=== PATIENT | male | born 1950 | race Caucasian/White ===

== ENCOUNTER → 2020-01-02 11:17 | Outpatient (BNVA) | payer MEDICARE, SELFPAY | PROVIDERS: Family Provider Family Medicine; PCP Family Medicine; Visit Provider Urology | DX: N41.9 Inflammatory disease of prostate, unspecified (principal); N39.9 Disorder of urinary system, unspecified; R97.20 Elevated prostate specific antigen [PSA]; Z80.42 Family history of malignant neoplasm of prostate | CPT/HCPCS: 81001; 84153 ==

== ENCOUNTER → 2020-01-23 12:12 | Outpatient (BNVA) | payer MEDICARE, SELFPAY | PROVIDERS: Family Provider Family Medicine; PCP Family Medicine; Visit Provider Urology | DX: N41.9 Inflammatory disease of prostate, unspecified (principal); R97.20 Elevated prostate specific antigen [PSA] | CPT/HCPCS: 88305 ==

== ENCOUNTER 2020-02-28 08:21 | Outpatient (RCR) | payer MEDICARE, SELFPAY ==
--- NOTE | 2020-02-14 10:05 | N.ONRAD NP_ITS ---
Radiation Oncology New Patient Visit Patient: Xavi Squires MR#: [id number] : 1950> Age: 69> Sex: Male> Dictated by: Dr. Michael Quick Date of Service: 02/13/2020 Referring Physician(s) : Geoff Torres MD Diagnosis: C85.81 -prostate, adenocarcinoma, stage T1c NX MX, PSA 10.7 (on finasteride), Mckenna 3+4 = 7 Radiotherapy to date: Summary > bilateral parotid gland radiation, 2600cGy, by patient history the radiation was interrupted before the planned dose was achieved due to side effects, review of records pending Chief Complaint / History of Present Illness: Mr. Torres is a 69-year-old man with a long history of benign prostatic hypertrophy with obstructive symptoms, chronic prostatitis, and elevated PSA. His BPH symptoms did not respond well to Flomax but did improve on finasteride. His chronic prostatitis has been treated periodically with Cipro and quercetin. He has actually used Cipro on a self treatment program. Patient has had history of transient elevations of the PSA. He has had a recent rise to 10.7 while on finasteride. He has had no marked change in his urinary tract symptoms. On 01/31/2022 2120 biopsies were performed. He had Lucia 3+4 adenocarcinoma on 5 of 12 biopsies with 10 to 50% of the cores being involved by cancer. He has had a basically normal prostate exam. Mr. Squires has discussed surgical options including robotic surgery. He is referred for evaluation and recommendations with regard to the use of radiation for the treatment of his prostate cancer. In terms of bladder symptoms he scores 17 out of 35 on the AUA symptom guide. He has a sensation of not completely emptying his bladder more than half the time. Also he frequently urinates less than 2 hours after finishing urinating. His most severe symptom is difficulty in postponing urination once he develops urgency. He has nocturia x3. He denies having a weak stream, pushing or straining to empty. . Mr. Squires has no history of new or troublesome bone pain. His overall performance status has been unchanged recently. Current Medications: Claritin, diazePAM, finasteride, leflunomide, metoprolol Tartrate, naproxen, omeprazole, potassium Chloride ER, prednisoLONE. Allergies: Statins, Penicillins, Cephalexin and Sulfa Antibiotics. Medical History: - Benign prostatic hypertorphy, - gastroesophageal reflux disease, - MALT lymphoma of the parotid gland. The patient describes receiving radiation bilaterally to the parotids. I think Waldeyer's ring was included because he states that he had to stop treatment altogether because of severe pharyngitis. He has had no recurrence of the MALT lymphoma. He mentions that he may have a lump under the right axilla that he notices when bathing. Rheumatoid art. . No history of collagen vascular disease. No previous radiation therapy. Surgical History: the parotid gland Appendectomy in 1977, arthroscopic knee surgery in 1989, arthroscopic shoulder surgery in 1999, bilateral cataract excisions, colonoscopy, excision of right parotid gland in 2001, laser eye surgery, rectal fistula repair in 1994 and thoracotomy/resection of right upper lobe pulmonary nodule in 2001. Family History: His father was treated for both the esophageal cancer and prostate cancer. His mother had dementia. Social History: Last screened on 02/13/2020 - Never smoked. Last screened on 02/13/2020 - Never drank. Current Complaints / Review of Systems: ENT: He has a history of parotid lymphoma as noted above. He has residual dry mouth that is moderate in degree. He has full dentures and therefore no dental issues related to the radiation. He has no significant loss of taste. No jaw pain. P UL M0 MARCUS Y: No troublesome cough, sputum production, hemoptysis, shortness of breath, or pleuritic pleuritic chest pain. GI: No dysphagia, dyspepsia, altered bowel habits, or abdominal pain. MS no unusual bone or joint pain or stiffness. Vital Signs: PHYSICAL EXAM: Alert, oriented ,no distress. Postsurgical changes of the right parotid. No significant radiation changes of the face or oral cavity/pharynx. No lesions seen. No cervical, axillary, supraclavicular, or inguinal lymphadenopathy. No abnormality in the right axilla. Lungs clear to A and P. No rales, rhomchi ,or wheezes. Heart rhythm regular. No murmur, gallop, or rub. Abdomen obese. No tenderness, organomegaly, or mass. Rectal No rectal mass or tenderness. Prostate is smooth, slightly firm diffusely, and nontender. No nodules. No bone tenderness. Normal gait. Performance Status: KPS 7/10 Pathology: Prostate, Adenocarcinoma, Mckenna 3+4 = 7. Lab: PSA = 10.7 Imaging:CT and Bone Scan ordered. Impression: Assessment: Mr. Squires has a nonpalpable, Mckenna 3+4 = 7 carcinoma the prostate with a PSA of 10.7 on finasteride. With the suppression of the PSA that can occur with finasteride finasteride, the true PSA value may be as high as 20. For that reason I feel it would be appropriate to go ahead with staging studies. I will order a CT of the abdomen and pelvis as well as a bone scan. If Mr. Squires has no evidence of metastatic disease, he will be a candidate for radical treatment of the prostate. He has discussed surgery. In terms of radiation, I reviewed a typical course of treatment over 8-1/2 to 9 weeks. I discussed side effects and possible complications. The patient's urinary tract issues are of some concern. I discussed his history of prostatitis as well as benign prostatic hypertrophy. I told him that radiation may worsen those symptoms significantly. We discussed the fact that Flomax was tried for his obstructive symptoms in the past and did not work well. I told him that is our primary drug for obstructive symptoms during radiation. In addition I discussed risk related to treatment. I discussed the extremely high risk of impotence. That is already a problem and is not a concern to him. Also discussed the small risk of severe bowel or bladder injury that could result in the need for surgery or even a permanent ostomy. He was to some to some degree aware of these risks. He has a history of a rectal fissure, but that was treated surgically over 20 years ago and has not been a problem since. Plan: We will obtain the bone scan and CT as noted above. Mr. Squires and his will discuss the various treatment options while we are waiting on the staging studies. No final decision has been made about treatment at this time. Signed by: 02/14/2020 10:03:31 AM <<Signature on File>> Time spent with patient: CPT Code: CPT Code:
--- NOTE | 2020-02-21 08:20 | CT_ITS ---
WS: [id number] CT ABDOMEN AND PELVIS WITH CONTRAST HISTORY: PROSTATE CANCER TECHNIQUE: Imaging performed of the abdomen and pelvis with IV contrast. Single phase imaging of the abdomen. Coronal and sagittal reformats are submitted. All CT scans at [facility] use at least one of these dose optimization techniques: automated exposure control; mA and/or kV adjustment per patient size (includes targeted exams where dose is matched to clinical indication); or iterativ e reconstruction. IV CONTRAST: Omnipaque 300; 95 mL IV. Oral contrast: Yes. DLP: 1197.49 mGycm COMPARISON: 12/25/2004 Lower thorax: Several nodules are noted at the lung bases. Some of these are pleural based and some a re parenchymal. Some contain calcifications. Overall stable since 11/19/2016. Heart is normal size. N o hiatal hernia. Liver/biliary system: Normal size with no intrahepatic dilatation. Gallbladder: Normal. No gallstones or wall thickening. No pericholecystic fluid. Pancreas: Normal. Spleen: Normal. Adrenal glands: Normal. Right kidney: Mild perinephric stranding with no obstruction. 11 mm hypoechoic lesion in the cortex o f the upper pole is new since 2004. Indeterminate for early neoplasm. Left kidney: Normal. Aorta: Normal. Lymphadenopathy: None. Free fluid: None. GI tract: No GI tract obstruction. There are several diverticula in the sigmoid colon without acute i nflammation. Mild asymmetric wall thickening of the distal sigmoid. The appendix is not definitely id entified. Abdominal wall: Unremarkable abdominal wall. No hernia. Pelvis: Inguinal canals are patent bilaterally containing fat. Urinary bladder is negative. No adenop athy or fluid. Prostate gland is small. Bones: Lumbar spondylitic changes. No osteoblastic or osteolytic bone disease. Bilateral femoral head osteonecrosis. CT/CT abdomen pelvis w con* [id number] IMPRESSION: 1. Mild sigmoid diverticulosis without acute diverticulitis. 2. Mild asymmetric wall thickening of the distal sigmoid with adjacent diverti cula. This asymmetric thickening may be due to chronic episodes of diverticulit is. Early neoplasm is not excluded. Consider follow-up colonoscopy. 3. Indeterminate hypodense cortical lesion upper pole RIGHT kidney, 11 mm. Ind eterminate for early neoplasm versus complex cyst. Recommend follow-up renal ma CT protocol in 6 months. Due to patient size doubtful ultrasound would provi de adequate characterization. 4. Stable partially calcified nodules at the lung bases. 5. Bilateral femoral head osteonecrosis.
[2020-02-21] MEDS: iohexol 300 mg/mL 50 mL Btl PO (08:45)
[2020-02-21 10:07] LABS: Blood Urea Nitrogen 14 mg/dL (8-23); Glomerular Filtration Rate 83.9 mL/min (90-130)
[2020-02-21] MEDS: iohexol 300 mg/mL 100 mL Btl IV (10:13)
--- NOTE | 2020-02-27 07:48 | NM_ITS ---
WS: [id number] NUCLEAR MEDICINE WHOLE BODY BONE SCAN HISTORY: PROSTATE CANCER COMPARISON: None available. TECHNIQUE: The patient was injected with 24.9 mCi of Technetium 99m HDP and serial whole-body scintig ade have been performed with anterior and posterior images. Large [id number] imaging over the sku ll and knees. There are a few focal areas of moderate increased uptake in areas most likely related to arthritis. B ilateral acromion, LEFT sternoclavicular, RIGHT T7 facet, L5 and bilateral knees and carpometacarpal joint spaces. There are no focal areas suspicious for metastatic disease. Bilateral uptake at the kne es from arthritis. Partial RIGHT knee replacement. Soft tissue uptake is normal. Kidneys are identified. NM/NM bone scan whole body* [id number] IMPRESSION: 1. No evidence for prostate metastatic disease. 2. Multifocal areas of osteoarthritis as above.
--- NOTE | 2020-02-28 12:42 | ONC CON_ITS ---
Dr. Ross New Patient Note Patient: Xavi Squires Unit #: [id number]: 1950 Dicatated By: Arthur Ross M.D.Date of Visit: Feb 28, 2020 Onc MED New Patient/Consult Referring Physician: Twila Haddadel Mary Chief Complaint: Prostate cancer. History of Present Illness: This is a 69 year-old man with Killbuck score 3+4 adenocarcinoma of the prostate, by clinical evaluation stage IIB (T2c, N0, M0), baseline PSA10.70 ng/mL. 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 His treatment included excision of the right parotid gland followed by radiation to the parotid region bilaterally, completed in September 2002 to a total dose of 2600 cGy. As of his follow-up visit in June 2015 there had been no evidence of recurrence. He has additional history of rheumatoid arthritis, which has been managed adequately with leflunomide. He has been followed by Dr. Torres for benign prostatic hypertrophy and prostatitis. As of April 2019 there was a significant increase in his PSA level, to 6.10 ng/mL compared to 0.52 ng/mL in January 2017. By September 2019 and it was up to 8.90 ng/mL, and as of 01/02/2020 it had further increased to 10.70 ng/mL. He then underwent TRUSP/biopsy on 01/20/2020. Pathology showed Lucia 3+4 prostatic adenocarcinoma involving both lobes, including the right lateral base, right lateral apex, left lateral apex, left lateral mid and left lateral base. Staging CT of the abdomen/pelvis on 02/21/2020 showed evidence of mild sigmoid diverticulosis without acute diverticulitis. There was mild asymmetric wall thickening of the distal sigmoid with adjacent diverticula, possibly reflecting chronic episodes of diverticulitis, but or early neoplasm was not excluded. A hypodense cortical lesion in the upper pole of the right kidney measured 11 mm, indeterminate for early neoplasm versus complex cyst. Also noted was evidence of bilateral femoral head osteonecrosis. Bone scan on 02/27/2020 showed multifocal areas of osteoarthritis but no evidence for metastatic prostate cancer. He was seen by Dr. Royce Quick for radiation oncology consultation, and with the findings of bilateral femoral head osteonecrosis on the CT scan, he was deemed to be unsuitable for definitive radiation. He is seen now in regard to further management of the prostate cancer. He complains is been feeling tired for quite a while. 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 He is still doing some light work at home. His ECOG score is 1. He has good appetite. He has not had fever. He has had some sweating at night off and on. He has had some soreness on the inside of his mouth. He does not complain of shortness of breath, cough, or chest pain. He has had a little nausea since a bone scan yesterday. He has acid reflux, that has been well managed with omeprazole. He complains that he has diarrhea all the time. He has had colonoscopy previously with Dr. Rolle, but he does not recall how long ago that may have been done. He has not been aware of any blood in the stool. He has urinary frequency and nocturia. He has pain in his knees and back. His rheumatoid arthritis mainly affects his hands. It is pretty well controlled with the leflunomide. He does have prednisone that he takes occasionally for flareups. He has a lot of headaches, mainly in the back of his head on the right side. This has been going on for quite a while. He has some dysequilibrium associated with the recent visual changes. He has no focal neurologic symptoms. Past Medical History: His medical history includes benign prostatic hypertorphy/chronic prostatitis, gastroesophageal reflux disease, MALT lymphoma, and rheumatoid arthritis. Past Surgical History: His surgical/procedural history includes bilateral cataract excisions, colonoscopy, laser eye surgery, excision of right parotid gland in 2001, thoracotomy/resection of right upper lobe pulmonary nodule in 2001, arthroscopic shoulder surgery in 1999, rectal fistula repair in 1994, arthroscopic knee surgery in 1989, and appendectomy in 1977. Medications: Claritin 1 (10 mg) Tablet Oral daily, Finasteride 1 (20 mg) Tablet Oral daily, Leflunomide 1 (20 mg) Tablet Oral daily, Metoprolol Tartrate 1 (50 mg) Tablet Oral daily, Naproxen 1 (500 mg) Tablet Oral b.i.d. PRN, Omeprazole 1 (20 mg) Capsule Delayed Release Oral daily, Potassium Chloride ER 1 (20 meq) Tablet, controlled release Oral daily, prednisoLONE 1 Tablet (of 5 mg) Oral daily Allergies: Cephalexin, Penicillins, Statins, and Sulfa Antibiotics. Social History: Mr. 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 He does not smoke or drink alcohol. Family History: His father was treated for both the esophageal cancer and prostate cancer. His mother had dementia. Review Of Symptoms: Constitutional - His energy level has been low for quite some time. He is able to do light housework. His appetite is good and weight is stable. No fever or chills. He has some night sweating off and on. ECOG score is 1, Eyes - He right eye has detached retina, ENMT - He has some sinus congestion/drainage. No mouth sores. No sore throat or difficulty swallowing, Hematologic/Lymphatic - He has easy bruising, Respiratory - No shortness of breath. No cough. No pleuritic pain or hemoptysis, Cardiovascular - No angina pain. No palpitations, Gastrointestinal - He had some nausea this morning, since resolved. No vomiting. He takes Prilosec for heartburn. He has chronic diarrhea. No constipation. No blood in the stool or black stools, Genitourinary (M) - No dysuria or hematuria. He has urinary frequency during the day and at night. No urgency or incontinence, Musculoskeletal - He has arthritis pain in his knees and back. He also had rheumatoid arthritis that mainly affects his hands, Integumentary - No skin complications, Neurologic - He has headaches nearly everyday. He reports its mainly in the morning and its to his right posterior head. He has some dizziness that he believes is related to his vision. No numbness/paresthesias or other focal neurologic symptoms, Psychiatric - No anxiety or depression. No insomnia. Vital Signs: Performed on Feb 28, 2020 10:18: 3, 39.84 (HIGH), 2.24 sq.m, 67.00 in, 97 %, 78 /min, 24 /min, 158/85 mm(hg) (HIGH), 97.9 F (LOW), and 254.4 lbs (LOW). Physical Examination: Constitutional - He looks pretty good generally, Eyes - Sclerae nonicteric. Conjunctivae clear, ENMT - No lesions noted in the oral cavity, Hematologic/Lymphatic - No cervical, clavicular, or axillary adenopathy, Respiratory - Lungs are clear with good air movement bilaterally, Cardiovascular - Heart rhythm is regular. There is no murmur, gallop, or rub noted, Abdomen - Moderately distended but soft. Liver and spleen are not enlarged. There is no abdominal mass or ascites noted and there is no inguinal adenopathy, Extremities - Mild edema. Dorsalis pedis pulses are palpable bilaterally, Integumentary - No suspicious skin lesions noted, Neurologic - No focal neurologic deficits noted. Impression: 1. Patient with with Killbuck score 3+4 adenocarcinoma of the prostate, by clinical evaluation stage IIB (T2c, N0, M0), baseline PSA10.70 ng/mL. The diagnosis was confirmed by TRUS P/biopsy on 01/20/2020. 2. His staging CT abdomen/pelvis showed evidence of bilateral femoral head osteonecrosis. As such, he was deemed to be unsuitable for definitive radiation. 3. There was also CT evidence of an 11 mm cortical lesion involving the upper pole of the right kidney, felt to be indeterminate for neoplasm versus complex cyst. 4. 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 His other medical illnesses include: 5. Rheumatoid arthritis, adequately managed with leflunomide. 6. Degenerative arthritis. 7. GERD. 8. He has been undergoing treatment for detached retina of the right eye. Plan: The findings on the imaging studies and the pathology results were reviewed with the patient and his . We discussed the clinical implications. He has a Killbuck 3+4 prostate cancer which appears to be localized. Based on his general health and the extent of involvement, he would appear to be an appropriate candidate for definitive treatment, but he was deemed by the radiation oncologist to be unsuitable for radiation due to the finding of bilateral femoral head osteonecrosis on his staging CT scan. He would still potentially be an appropriate surgical candidate, but I would first want to resolve with Dr. Rolle the issue of the CT findings involving the sigmoid colon, as it is likely that he would need a repeat sigmoidoscopy or colonoscopy. The other concern is that nonemergent surgeries are not being scheduled due to the coronavirus restrictions, and it is unclear at what point he would even be considered for a prostatectomy procedure. That is an issue which I will discuss with Dr. Torres, but it may very well be best to go ahead and initiate androgen deprivation therapy as a temporizing measure. In the meantime, I also will want to confer with one of the radiation oncologists at [facility] to make sure that proton beam radiation may not still be an option for him. Signed By: Arthur Ross M.D. <<Signature on File>>
== END 2020-02-28 23:59 | disposition home or self-care (01) ==
LOC: ONCMED 08:21
PROVIDERS: Specialist; Family Provider Family Medicine; PCP Family Medicine; Referring Provider Urology; Visit Provider Internal Medicine Medical Oncology
DX: C61 Malignant neoplasm of prostate (principal); N41.1 Chronic prostatitis; N40.1 Benign prostatic hyperplasia with lower urinary tract symptoms; R33.9 Retention of urine, unspecified; R35.1 Nocturia; Z79.899 Other long term (current) drug therapy; K21.9 Gastro-esophageal reflux disease without esophagitis; M06.9 Rheumatoid arthritis, unspecified; H33.21 Serous retinal detachment, right eye; Z85.72 Personal history of non-Hodgkin lymphomas; Z79.52 Long term (current) use of systemic steroids; Z92.3 Personal history of irradiation
CPT/HCPCS: 74177; 78306; 82565; 84520; 99204; 99205; 99215; A9561; Q9967

== ENCOUNTER → 2020-03-15 13:06 | Outpatient (BNVA) | payer MEDICARE, SELFPAY | PROVIDERS: Family Provider Family Medicine; PCP Family Medicine; Visit Provider Internal Medicine Rheumatology | DX: M06.09 Rheumatoid arthritis without rheumatoid factor, multiple sites (principal); Z79.899 Other long term (current) drug therapy; Z11.59 Encounter for screening for other viral diseases; Z72.89 Other problems related to lifestyle | CPT/HCPCS: 36415; 80076; 82565; 85025; 85651; 86140; 86704 ==

== ENCOUNTER 2020-04-09 08:44 | Outpatient (CLI) | payer MEDICARE, SELFPAY ==
[2020-04-09 09:24] LABS: Basophils % 0.9 %; Eosinophils # 0.1 10^3/uL (0.0-0.8); Eosinophils % 2.2 %; Hematocrit 39.9 % (42.0-52.0); Hemoglobin 12.4 g/dL (11.7-16.6); Lymphocytes # 0.9 10^3/uL (0.8-4.8); Lymphocytes % 18.9 %; Mean Corpuscular HGB Conc 31.1 g/dL (30.0-36.0); Mean Corpuscular Volume 86.9 fL (80-94); Mean Platelet Volume 9.6 fL (7.4-10.4); Monocytes # 0.5 10^3/uL (0.2-0.9); Neutrophils % 66.6 %; Nucleated Red Blood Cells % 0 %; Platelet Count 178 10^3/cmm (130-400); Red Blood Count 4.59 10^6/uL (4.1-5.3); Red Cell Distribution Width 14.6 % (12.1-15.1); White Blood Count 4.5 10^3/uL (4.0-10.0)
[2020-04-09 09:49] LABS: Prostate Specific Antigen 4.67 ng/mL (0-4)
[2020-04-09 10:00] LABS: Alanine Aminotransferase 23 U/L (0-41); Albumin Level 4.1 g/dL (3.5-5.2); Alkaline Phosphatase 76 IU/L (40-130); Anion Gap 17.3 (5-19); Aspartate Amino Transferase 25 U/L (0-40); Blood Urea Nitrogen 16 mg/dL (8-23); Carbon Dioxide 24 mmol/L (22-29); Chloride 104 mmol/L (98-107); Globulin 2.8 g/dL (1.3-4.6); Glomerular Filtration Rate 66.6 mL/min (90-130); Glucose 138 mg/dL (65-115); Osmolality Calculated 291 mOsm/kg (285-295); Potassium 4.3 mmol/L (3.5-5.1); Sodium 141 mmol/L (136-145); Total Bilirubin 0.3 mg/dL (0.15-1.2); Total Protein 6.9 g/dL (6.6-8.7)
[2020-04-09] MEDS: goserelin acetate 10.8 mg Implant IM (16:01)
--- NOTE | 2020-04-10 07:03 | ONC FU_ITS ---
Dr. Ross Patient Follow-Up Note Patient: Xavi Squires Unit #: [id number]: 1950 Dicatated By: Arthur Ross M.D.Date of Visit:April 09, 2020 Onc Med Follow-up/Prog Note Chief Complaint: Prostate cancer. 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 His treatment included excision of the right parotid gland followed by radiation to the parotid region bilaterally, completed in September 2002 to a total dose of 2600 cGy. As of his follow-up visit in June 2015 there had been no evidence of recurrence. He has additional history of rheumatoid arthritis, which has been managed adequately with leflunomide. He has been followed by Dr. Torres for benign prostatic hypertrophy and prostatitis. As of April 2019 there was a significant increase in his PSA level, to 6.10 ng/mL compared to 0.52 ng/mL in January 2017. By September 2019 and it was up to 8.90 ng/mL, and as of 01/02/2020 it had further increased to 10.70 ng/mL. He then underwent TRUSP/biopsy on 01/20/2020. Pathology showed [place] 3+4 prostatic adenocarcinoma involving both lobes, including the right lateral base, right lateral apex, left lateral apex, left lateral mid and left lateral base. Staging CT of the abdomen/pelvis on 02/21/2020 showed evidence of mild sigmoid diverticulosis without acute diverticulitis. There was mild asymmetric wall thickening of the distal sigmoid with adjacent diverticula, possibly reflecting chronic episodes of diverticulitis, but or early neoplasm was not excluded. A hypodense cortical lesion in the upper pole of the right kidney measured 11 mm, indeterminate for early neoplasm versus complex cyst. Also noted was evidence of bilateral femoral head osteonecrosis. Bone scan on 02/27/2020 showed multifocal areas of osteoarthritis but no evidence for metastatic prostate cancer. He was seen by Dr. Royce Quick for radiation oncology consultation, and with the findings of bilateral femoral head osteonecrosis on the CT scan, he was deemed to be unsuitable for definitive radiation. I had seen him for further management of the prostate cancer on 02/28/2020. We discussed the possibility of getting a further radiation oncology evaluation at [facility] to see whether or not he would be eligible for proton beam radiation. However, he ultimately decided against it, and he was then recommended to begin neoadjuvant androgen deprivation therapy in preparation for possible surgery. A little over 2 weeks ago he had started bicalutamide 50 mg daily in anticipation of also starting Zoladex, but that has been delayed pending verification of insurance coverage. Thus far he has tolerated the bicalutamide with acceptable toxicity. He has had a few hot flashes with it. He also has some diarrhea, but that is chronic. He has noted improvement in the pain he was having in the bladder/perineal area. Medications: Claritin 1 (10 mg) Tablet Oral daily, Finasteride 1 (20 mg) Tablet Oral daily, Furosemide 1 Tablet (of 20 mg) Oral daily, Leflunomide 1 (20 mg) Tablet Oral daily, Metoprolol Tartrate 1 (50 mg) Tablet Oral b.i.d., Naproxen 1 (500 mg) Tablet Oral daily PRN, Omeprazole 1 (20 mg) Capsule Delayed Release Oral daily, Potassium Chloride ER 1 (20 meq) Tablet, controlled release Oral daily, prednisoLONE 1 Tablet (of 5 mg) Oral daily PRN Allergies: Cephalexin, Penicillins, Statins, and Sulfa Antibiotics. Review of Systems: Constitutional - His energy level is low. He is able to do light work. His appetite is good and weight is stable. No fever or chills. He has had some night sweating off and on. He has been having occasional hot flashes since he started bicalutamide. ECOG score is 1, Eyes - His right eye vision is not getting better and apparently it is not going to improve. He started having some drainage from his right eye yesterday, ENMT - Recently he has been having pain in his ears. He has some sinus congestion/drainage. No mouth sores. No sore throat or difficulty swallowing, Hematologic/Lymphatic - He has easy bruising, Respiratory - No shortness of breath. No cough. No pleuritic pain or hemoptysis, Cardiovascular - No angina pain. No palpitations, Gastrointestinal - He had some nausea this morning, since resolved. No vomiting. He takes Prilosec for heartburn. He has diarrhea a lot. No constipation. No blood in the stool or black stools, Genitourinary (M) - No dysuria or hematuria. He has urinary frequency during the day and at night. No urgency or incontinence. The pain in his bladder/perineal area has let up, Musculoskeletal - He has arthritis pain, especially in his knees, Integumentary - No skin complications, Neurologic - He has headaches. No dizzines. No numbness/paresthesias or other focal neurologic symptoms, Psychiatric - No anxiety or depression. No insomnia. Vital Signs: Performed on April 09, 2020 15:29 Height - 67.00 in Weight - 252.4 lbs (LOW) BSA - 2.23 sq.m BMI - 39.53 (HIGH) Temperature - 97.3 F (LOW) Pulse - 75 /min Respiration - 22 /min BP - 147/77 mm(hg) (HIGH) O2 Sat - 97 % Pain - 4 Physical Examination: Constitutional - He looks pretty good generally, Eyes - Sclerae nonicteric. Conjunctivae clear, ENMT - No lesions noted in the oral cavity, Hematologic/Lymphatic - No cervical, clavicular, or axillary adenopathy, Respiratory - Lungs are clear with good air movement bilaterally, Cardiovascular - Heart rhythm is regular. There is no murmur, gallop, or rub noted, Abdomen - Moderately distended but soft. Liver and spleen are not enlarged. There is no abdominal mass or ascites noted and there is no inguinal adenopathy, Extremities - Mild edema. Pedal pulses are palpable bilaterally. There are some small purpuric lesions on the arms, Neurologic - No focal neurologic deficits noted. Lab/Imaging: Test performed on April 09, 2020 08:55 Sodium 141 mmol/L Potassium 4.3 mmol/L Chloride 104 mmol/L CO2 24 mmol/L Anion Gap 17.3 BUN 16 mg/dL Creatinine 1.1 mg/dL Cr Clearance (Est) 104.08 mL/min eGFR 66.6 mL/min Glucose 138 mg/dL Calcium 9.0 mg/dL Protein, Total 6.9 g/dL Albumin 4.1 g/dL Globulin 2.8 g/dL Bilirubin, Total 0.3 mg/dL ALT (SGPT) 23 U/L AST (SGOT) 25 U/L Alkaline Phosphatase 76 IU/L WBC 4.5 10 3/uL RBC 4.59 10 6/uL HGB 12.4 g/dL HCT 39.9 % MCV 86.9 fL MCH 27.0 pg MCHC 31.1 g/dL RDW 14.6 % Platelet Count 178 10 3/cmm MPV 9.6 fL Neutrophils 3.0 10 3/uL Lymphocytes 0.9 10 3/uL Monocytes 0.5 10 3/uL Eosinophils 0.1 10 3/uL Basophils 0.0 10 3/uL Neutrophil % 66.6 % Lymphocyte % 18.9 % Monocyte % 11.0 % Eosinophil % 2.2 % Basophils % 0.9 % PSA 4.67 ng/mL Impression: 1. Patient with with Lucia score 3+4 adenocarcinoma of the prostate, by clinical evaluation stage IIB (T2c, N0, M0), baseline PSA10.70 ng/mL. The diagnosis was confirmed by TRUS P/biopsy on 01/20/2020. 2. His staging CT abdomen/pelvis showed evidence of bilateral femoral head osteonecrosis. As such, he was deemed to be unsuitable for definitive radiation. 3. There was also CT evidence of an 11 mm cortical lesion involving the upper pole of the right kidney, felt to be indeterminate for neoplasm versus complex cyst. 4. 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 His other medical illnesses include: 5. Rheumatoid arthritis, adequately managed with leflunomide. 6. Degenerative arthritis. 7. GERD. 8. He has been undergoing treatment for detached retina of the right eye. He began treatment with bicalutamide 50 mg daily on 03/22/2020. He has tolerated with acceptable toxicity. There has been a significant decline in the PSA level. Plan: He will now begin androgen deprivation therapy with Zoladex 10.8 mg. I did recommend that he continue the bicalutamide for another 2 weeks. I will see him again in 3 months. In the meantime, he will also continue follow-up with Dr. Torres. Signed By: Arthur Ross M.D. <<Signature on File>>
== END 2020-04-09 08:45 | disposition home or self-care (01) ==
LOC: ONCMED 08:44
PROVIDERS: PCP Family Medicine; Referring Provider Urology; Visit Provider Internal Medicine Medical Oncology
DX: C61 Malignant neoplasm of prostate (principal)
CPT/HCPCS: 36415; 80053; 84153; 85025; 96372; 96402; 99214; J9202

== ENCOUNTER → 2020-06-13 13:20 | Outpatient (BNVA) | payer MEDICARE, SELFPAY | PROVIDERS: PCP Family Medicine; Visit Provider Internal Medicine Rheumatology | DX: C61 Malignant neoplasm of prostate (principal); N40.1 Benign prostatic hyperplasia with lower urinary tract symptoms; N13.8 Other obstructive and reflux uropathy; M06.9 Rheumatoid arthritis, unspecified; Z79.899 Other long term (current) drug therapy | CPT/HCPCS: 36415; 80076; 82565; 85025; 85651; 86140 ==

== ENCOUNTER 2020-07-06 09:53 | Outpatient (CLI) | payer MEDICARE, SELFPAY ==
[2020-07-06 10:32] LABS: Basophils % 0.7 %; Eosinophils # 0.2 10^3/uL (0.0-0.8); Eosinophils % 2.6 %; Hematocrit 40.3 % (42.0-52.0); Hemoglobin 12.3 g/dL (11.7-16.6); Lymphocytes # 0.9 10^3/uL (0.8-4.8); Lymphocytes % 14.9 %; Mean Corpuscular HGB Conc 30.5 g/dL (30.0-36.0); Mean Corpuscular Hemoglobin 27.4 pg (28.0-34.0); Mean Corpuscular Volume 89.8 fL (80-94); Mean Platelet Volume 9.5 fL (7.4-10.4); Monocytes # 0.5 10^3/uL (0.2-0.9); Monocytes % 8.1 %; Neutrophils # 4.17 10^3/uL (1.8-7.7); Neutrophils % 73.3 %; Nucleated Red Blood Cells % 0 %; Platelet Count 184 10^3/cmm (130-400); Red Blood Count 4.49 10^6/uL (4.1-5.3); Red Cell Distribution Width 14.6 % (12.1-15.1); White Blood Count 5.7 10^3/uL (4.0-10.0)
[2020-07-06 10:55] LABS: Prostate Specific Antigen 0.113 ng/mL (0-4)
[2020-07-06 11:16] LABS: Alanine Aminotransferase 26 U/L (0-41); Albumin Level 3.9 g/dL (3.5-5.2); Alkaline Phosphatase 86 IU/L (40-130); Blood Urea Nitrogen 16 mg/dL (8-23); Calcium 9.4 mg/dL (8.5-10.5); Carbon Dioxide 24 mmol/L (22-29); Chloride 105 mmol/L (98-107); Globulin 2.8 g/dL (1.3-4.6); Glomerular Filtration Rate 66.4 mL/min (90-130); Glucose 186 mg/dL (65-115); Osmolality Calculated 289 mOsm/kg (285-295); Sodium 139 mmol/L (136-145); Total Bilirubin 0.4 mg/dL (0.15-1.2); Total Protein 6.7 g/dL (6.6-8.7)
[2020-07-06 11:29] LABS: Anion Gap 14.2 (5-19)
[2020-07-06 11:30] LABS: Aspartate Amino Transferase 31 U/L (0-40); Potassium 4.2 mmol/L (3.5-5.1)
[2020-07-06 11:39] LABS: Testosterone Total < 2.5 ng/dL (193-740)
== END 2020-07-06 09:54 | disposition home or self-care (01) ==
PROVIDERS: PCP Family Medicine; Visit Provider Internal Medicine Medical Oncology
DX: C61 Malignant neoplasm of prostate (principal)
CPT/HCPCS: 80053; 84153; 84403; 85025

== ENCOUNTER 2020-07-10 12:22 | Outpatient (CLI) | payer MEDICARE, SELFPAY ==
[2020-07-10] MEDS: lidocaine 1% INJ 20 mL INJECTION (13:05)
[2020-07-10] MEDS: goserelin acetate 10.8 mg Implant IM (13:21)
--- NOTE | 2020-07-11 06:40 | ONC FU_ITS ---
Dr. Ross Patient Follow-Up Note Patient: Xavi Squires Unit #: [id number]: 1950 Dicatated By: Arthur Ross M.D.Date of Visit:Jul 10, 2020 Onc Med Follow-up/Prog Note Chief Complaint: Prostate cancer. History of Present Illness: This is a 70 year-old man with Lucia score 3+4 adenocarcinoma of the prostate, by clinical evaluation stage IIB (T2c, N0, M0), baseline PSA10.70 ng/mL. 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 His treatment included excision of the right parotid gland followed by radiation to the parotid region bilaterally, completed in September 2002 to a total dose of 2600 cGy. As of his follow-up visit in June 2015 there had been no evidence of recurrence. He has additional history of rheumatoid arthritis, which has been managed adequately with leflunomide. He has been followed by Dr. Torres for benign prostatic hypertrophy and prostatitis. As of April 2019 there was a significant increase in his PSA level, to 6.10 ng/mL compared to 0.52 ng/mL in January 2017. By September 2019 and it was up to 8.90 ng/mL, and as of 01/02/2020 it had further increased to 10.70 ng/mL. He then underwent TRUSP/biopsy on 01/20/2020. Pathology showed [place] 3+4 prostatic adenocarcinoma involving both lobes, including the right lateral base, right lateral apex, left lateral apex, left lateral mid and left lateral base. Staging CT of the abdomen/pelvis on 02/21/2020 showed evidence of mild sigmoid diverticulosis without acute diverticulitis. There was mild asymmetric wall thickening of the distal sigmoid with adjacent diverticula, possibly reflecting chronic episodes of diverticulitis, but or early neoplasm was not excluded. A hypodense cortical lesion in the upper pole of the right kidney measured 11 mm, indeterminate for early neoplasm versus complex cyst. Also noted was evidence of bilateral femoral head osteonecrosis. Bone scan on 02/27/2020 showed multifocal areas of osteoarthritis but no evidence for metastatic prostate cancer. He was seen by Dr. Royce Quick for radiation oncology consultation, and with the findings of bilateral femoral head osteonecrosis on the CT scan, he was deemed to be unsuitable for definitive radiation. I had seen him on 02/28/2020 to discuss further management of the prostate cancer on 02/28/2020. Ultimately he opted to proceed with neoadjuvant androgen deprivation therapy in preparation for possible surgery at a later time. His medical illnesses, in addition to the prostate cancer and the MALT lymphoma, include rheumatoid arthritis, degenerative arthritis, and GERD. He also has had treatment for a detached retina of the right eye. He is a non-smoker. INTERIM HISTORY: He began bicalutamide 50 mg daily for 2 weeks followed by his initial injection of Zoladex on 04/09/2020. He is seen for a follow-up visit. 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 He complains that he has been more fatigued since he started the androgen deprivation therapy, but he is still doing light work. He has good appetite. He has not had fever. He does have hot flashes and sweating, which at times are pretty bad. He is having double vision. He is having some allergy related symptoms in his throat, and he has pain in his left ear when he swallows. He has no shortness of breath, cough, or chest pain. He has been having occasional nausea. Bowel function has been okay. Bladder function overall is about the same. He typically has nocturia 2 or 3 times, but sometimes more frequently. He has joint pain, especially in his knees. He it is now scheduled to see the brewery pumper on August 14. He has had pain in the back of his head, particularly when he first gets up in the morning. He occasionally has dizziness. He has no focal neurologic symptoms. Medications: Claritin 1 (10 mg) Tablet Oral daily, Finasteride 1 (20 mg) Tablet Oral daily, Furosemide 1 Tablet (of 20 mg) Oral daily, Leflunomide 1 (20 mg) Tablet Oral daily, Metoprolol Tartrate 1 (50 mg) Tablet Oral b.i.d., Omeprazole 1 (20 mg) Capsule Delayed Release Oral daily, Potassium Chloride ER 1 (20 meq) Tablet, controlled release Oral daily, prednisoLONE 1 Tablet (of 5 mg) Oral daily PRN Allergies: Cephalexin, Penicillins, Statins, and Sulfa Antibiotics. Review of Systems: Constitutional - He is having more fatigue, but he is able to do light work. Appetite is good. His weight is down a few pounds. He has not had fever. He is having hot flashes/sweating. At times they are pretty bad. ECOG score is 1, Eyes - He is still having double vision, ENMT - He has some allergy related sinus and throat symptoms. It hurts in his left ear when he swallows, Hematologic/Lymphatic - He has easy bruising, Respiratory - No shortness of breath. No cough. No pleuritic pain or hemoptysis, Cardiovascular - No angina pain. No palpitations, Gastrointestinal - He occasionally has nausea. No heartburn or acid reflux. No diarrhea or constipation. No blood in the stool or black stools, Genitourinary (M) - No dysuria or hematuria. No urinary frequency. He typically gets up 2 or 3 times at night, but sometimes more often. No urgency or incontinence, Musculoskeletal - He has joint pain with the rheumatoid arthritis, especially in his knees, Integumentary - No skin rash, Neurologic - He has been having pain in the back of his head. He occasionally has lightheadedness. No numbness or tingling. No other focal neurologic symptoms, Psychiatric - No anxiety or depression. No insomnia. Vital Signs: Performed on Jul 10, 2020 12:33 Height - 67.00 in Weight - 248.2 lbs (LOW) BSA - 2.22 sq.m BMI - 38.87 (HIGH) Temperature - 97.6 F (LOW) Pulse - 70 /min Respiration - 20 /min BP - 173/76 mm(hg) (HIGH) O2 Sat - 98 % Pain - 3 Physical Examination: Constitutional - He looks pretty good generally, Eyes - Sclerae nonicteric. Conjunctivae clear, ENMT - No lesions noted in the oral cavity, Hematologic/Lymphatic - No cervical, clavicular, or axillary adenopathy. There is a soft on the inferior aspect of the right axilla, which clinically appears consistent with lipoma, Respiratory - Lungs are clear with good air movement bilaterally, Cardiovascular - Heart rhythm is regular. There is no murmur, gallop, or rub noted, Abdomen - Moderately distended. Liver and spleen are not enlarged. There is no abdominal mass or ascites noted and there is no inguinal adenopathy, Extremities - Mild edema, Neurologic - No focal neurologic deficits noted. Lab/Imaging: Test performed on Jul 06, 2020 10:04 Sodium 139 mmol/L Testosterone, Total < 2.5 ng/dL Potassium 4.2 mmol/L Chloride 105 mmol/L CO2 24 mmol/L Anion Gap 14.2 BUN 16 mg/dL Creatinine 1.1 mg/dL Cr Clearance (Est) 102.6400 mL/min eGFR 66.4 mL/min Glucose 186 mg/dL Calcium 9.4 mg/dL Protein, Total 6.7 g/dL Albumin 3.9 g/dL Globulin 2.8 g/dL Bilirubin, Total 0.4 mg/dL ALT (SGPT) 26 U/L AST (SGOT) 31 U/L Alkaline Phosphatase 86 IU/L WBC 5.7 10 3/uL RBC 4.49 10 6/uL HGB 12.3 g/dL HCT 40.3 % MCV 89.8 fL MCH 27.4 pg MCHC 30.5 g/dL RDW 14.6 % Platelet Count 184 10 3/cmm MPV 9.5 fL Neutrophils 4.17 10 3/uL Lymphocytes 0.9 10 3/uL Monocytes 0.5 10 3/uL Eosinophils 0.2 10 3/uL Basophils 0.0 10 3/uL Neutrophil % 73.3 % Lymphocyte % 14.9 % Monocyte % 8.1 % Eosinophil % 2.6 % Basophils % 0.7 % NRBC % 0 % PSA 0.113 ng/mL Impression: 1. Patient with with [place] score 3+4 adenocarcinoma of the prostate, by clinical evaluation stage IIB (T2c, N0, M0), baseline PSA10.70 ng/mL. The diagnosis was confirmed by TRUS P/biopsy on 01/20/2020. 2. His staging CT abdomen/pelvis showed evidence of bilateral femoral head osteonecrosis. As such, he was deemed to be unsuitable for definitive radiation. 3. There was also CT evidence of an 11 mm cortical lesion involving the upper pole of the right kidney, felt to be indeterminate for neoplasm versus complex cyst. 4. 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 His other medical illnesses include: 5. Rheumatoid arthritis, adequately managed with leflunomide. 6. Degenerative arthritis. 7. GERD. 8. He has been undergoing treatment for detached retina of the right eye. During initial evaluation for the prostate cancer he was found to have evidence of bilateral femoral head osteonecrosis by CT scan. As such, he was deemed unsuitable for definitive radiation. He then opted to proceed with neoadjuvant androgen deprivation therapy for possible surgery at a later time. He began treatment with bicalutamide 50 mg daily on 03/22/2020. He then treatment with Zoladex on 04/09/2020. At that point his PSA had declined to 4.67 ng/mL compared to his baseline PSA of 10.70 ng/mL. He has had significant side effects with the androgen deprivation therapy, including fatigue and hot flashes. He is showing a very good response with his PSA level now decreased to 0.113 ng/mL. Plan: He will continue androgen deprivation therapy with Zoladex 10.8 mg. He will continue to follow-up with Dr. Torres for further discussion of surgical options. He will be scheduled for a follow-up visit in 3 months. Signed By: Arthur Ross M.D. <<Signature on File>>
== END 2020-07-10 12:23 | disposition home or self-care (01) ==
LOC: ONCMED 12:24
PROVIDERS: PCP Family Medicine; Visit Provider Internal Medicine Medical Oncology
DX: C61 Malignant neoplasm of prostate (principal); C85.81 Other specified types of non-Hodgkin lymphoma, lymph nodes of head, face, and neck; N40.0 Benign prostatic hyperplasia without lower urinary tract symptoms; N41.1 Chronic prostatitis; K21.9 Gastro-esophageal reflux disease without esophagitis; M06.9 Rheumatoid arthritis, unspecified; H33.21 Serous retinal detachment, right eye; Z79.818 Long term (current) use of other agents affecting estrogen receptors and estrogen levels
CPT/HCPCS: 96372; 96402; 99214; J9202

== ENCOUNTER → 2020-07-23 10:12 | Outpatient (BNVA) | payer MEDICARE, SELFPAY | PROVIDERS: PCP Family Medicine; Visit Provider Urology | DX: N40.1 Benign prostatic hyperplasia with lower urinary tract symptoms (principal); C61 Malignant neoplasm of prostate | CPT/HCPCS: 81001 ==

== ENCOUNTER → 2020-08-14 09:11 | Outpatient (BNVA) | payer MEDICARE, SELFPAY | PROVIDERS: PCP Family Medicine; Visit Provider Internal Medicine Rheumatology | DX: M06.041 Rheumatoid arthritis without rheumatoid factor, right hand (principal); M06.042 Rheumatoid arthritis without rheumatoid factor, left hand; Z79.899 Other long term (current) drug therapy; C61 Malignant neoplasm of prostate | CPT/HCPCS: 99213 ==

== ENCOUNTER → 2020-11-07 12:38 | Outpatient (BNVA) | payer MEDICARE, SELFPAY | PROVIDERS: PCP Family Medicine; Visit Provider Internal Medicine Rheumatology | DX: M06.041 Rheumatoid arthritis without rheumatoid factor, right hand (principal); M06.042 Rheumatoid arthritis without rheumatoid factor, left hand; Z79.899 Other long term (current) drug therapy | CPT/HCPCS: 36415; 80076; 82565; 85025; 85651; 86140 ==

== ENCOUNTER → 2021-01-01 15:07 | Outpatient (BNVA) | payer MEDICARE, SELFPAY | PROVIDERS: PCP Family Medicine; Visit Provider Urology | DX: C61 Malignant neoplasm of prostate (principal); N40.1 Benign prostatic hyperplasia with lower urinary tract symptoms | CPT/HCPCS: 81003; 84153 ==

== ENCOUNTER → 2021-03-19 12:55 | Outpatient (BNVA) | payer MEDICARE, SELFPAY | PROVIDERS: PCP Family Medicine; Visit Provider Internal Medicine Rheumatology | DX: M06.041 Rheumatoid arthritis without rheumatoid factor, right hand (principal); M06.042 Rheumatoid arthritis without rheumatoid factor, left hand; M06.9 Rheumatoid arthritis, unspecified; Z79.899 Other long term (current) drug therapy; C61 Malignant neoplasm of prostate; Z85.79 Personal history of other malignant neoplasms of lymphoid, hematopoietic and related tissues | CPT/HCPCS: 73590; 99214 ==

== ENCOUNTER 2021-03-19 13:55 | Outpatient (CLI) | payer MEDICARE, SELFPAY ==
--- NOTE | 2021-03-19 14:03 | XR_ITS ---
WS: [id number] RIGHT TIBIA-FIBULA 2 VIEWS HISTORY: M06.041 - Rheumatoid arthritis without rheumatoid factor, right hand COMPARISON: None available. Medial knee joint replacement. Moderate narrowing of the lateral compartment. No fractures. Extensive atherosclerosis within the tibial arteries. XR/XR tibia fibula RT 2V [id number] IMPRESSION: 1. Medial compartment joint replacement. 2. Moderate narrowing of the lateral compartment involving the knee. 3. Peripheral arterial calcifications.
--- NOTE | 2021-03-19 14:03 | XR_ITS ---
WS: [id number] LEFT TIBIA-FIBULA 2 VIEWS HISTORY: M06.041 - Rheumatoid arthritis without rheumatoid factor, right hand COMPARISON: None available. Mild narrowing of the medial lateral compartments. Peripheral arterial calcifications. No fracture. N o displacement. XR/XR tibia fibula LT 2V [id number] IMPRESSION: 1. Mild medial and lateral compartment osteoarthritis at the knee. 2. Peripheral arterial calcifications.
== END 2021-03-19 13:56 | disposition home or self-care (01) ==
PROVIDERS: PCP Family Medicine; Visit Provider Internal Medicine Rheumatology
DX: M06.041 Rheumatoid arthritis without rheumatoid factor, right hand (principal); M06.042 Rheumatoid arthritis without rheumatoid factor, left hand; M06.9 Rheumatoid arthritis, unspecified; Z79.899 Other long term (current) drug therapy
CPT/HCPCS: 73590

== ENCOUNTER 2021-03-26 09:34 | Outpatient (CLI) | payer MEDICARE, SELFPAY ==
--- NOTE | 2021-03-26 09:41 | FL_ITS ---
WS: [id number] ESOPHAGRAM WITH FLUOROSCOPY HISTORY: DYSPHAGIA COMPARISON: None available. FLUOROSCOPY TIME: 1.1 minutes. Spring Former radiograph: Mild spondylitic changes. Esophagus and swallowing function: Patient swallowed the barium mixture without difficulty. There is significant pharyngeal coating with barium after swallowing. No aspiration or laryngeal penetration. No strictures. There is mild cricopharyngeal spasm at the C5-6 level. Osteophytes also encroach into the posterior cervical esophagus. Gastroesophageal reflux: None. Hiatal hernia: Small reducible hiatal hernia. FL/FL barium swallow [id number] IMPRESSION: 1. No high-grade strictures. 2. Mild cricopharyngeal spasm and cervical osteophytes encroach into the poste rior cervical esophagus at the C5-C7 levels. 3. Residual coating with barium after swallowing with no aspiration. 4. Small hiatal hernia.
== END 2021-03-26 09:35 | disposition home or self-care (01) ==
LOC: RAD 09:39
PROVIDERS: PCP Family Medicine; Visit Provider Family Medicine
DX: R13.10 Dysphagia, unspecified (principal); K44.9 Diaphragmatic hernia without obstruction or gangrene
CPT/HCPCS: 74220

== ENCOUNTER → 2021-05-01 14:50 | Outpatient (BNVA) | payer MEDICARE, SELFPAY | PROVIDERS: PCP Family Medicine; Visit Provider Urology | DX: C61 Malignant neoplasm of prostate (principal); N40.1 Benign prostatic hyperplasia with lower urinary tract symptoms | CPT/HCPCS: 81003; 84153 ==

== ENCOUNTER 2021-09-02 14:36 | Outpatient (CLI) | payer MEDICARE, SELFPAY ==
--- NOTE | 2021-09-02 15:00 | USCV_ITS ---
Xavi Squires Age: 71 Gender: M : 1950 Exam Date: 09/02/2021 14:49 Ordering Phys: Keerthi Torres MD ([email or web address]) Technologist: Geraldine Valladares Exam Location: [facility] [place] Indication: DYSPNEA BP: 133 / 77 HR: 86 Rhythm: Sinus Technical Quality: Adequate MEASUREMENTS (Male / Female) Normal Values 2D ECHO LV Diastolic Diameter PLAX 3.3 cm 4.2 - 5.9 / 3.9 - 5.3 cm LV Systolic Diameter PLAX 2.3 cm IVS Diastolic Thickness 1.6 cm 0.6 - 1.0 / 0.6 - 0.9 cm IVS Systolic Thickness 1.8 cm LVPW Diastolic Thickness 1.3 cm 0.6 - 1.0 / 0.6 - 0.9 cm LVPW Systolic Thickness 1.3 cm LVOT Diameter 2.0 cm LV Ejection Fraction 2D Teich 61.0 % LV Ejection Fraction MOD 2C 67.6 % LV Ejection Fraction 2C AL 68.6 % LA Diameter 3.0 cm LA Width 4.0 cm LA Height 4.8 cm RA Width 3.1 cm RA Height 5.5 cm Aorta at Sinotubular Diameter 2.6 cm DOPPLER AV Peak Velocity 154.0 cm/s LVOT Peak Velocity 129.0 cm/s AV Area Cont Eq vti 3.0 cm squared AV Area Cont Eq pk 2.6 cm squared MV Area PHT 5.0 cm squared Mitral E to A Ratio 1.0 MV E' Velocity 42.0 cm/s Mitral E to MV E' Ratio 8.6 Mitral E to LV E' Lateral Ratio 7.3 Mitral E to LV E' Septal Ratio 10.4 TR Peak Velocity 305.0 cm/s TR Peak Gradient 37.2 mmHg TV Peak E Velocity 71.0 cm/s Right Atrial Pressure 3.0 mmHg Pulmonary Artery Systolic Pressu 40.2 mmHg PV Peak Velocity 98.0 cm/s RV Acceleration Time 0.0 s RV Ejection Time 0.2 s RV AcT/ET 0.2 FINDINGS Left Ventricle Normal left ventricular size and systolic function, EF 69 %. Mild left ventricular hypertrophy. No regional wall motion abnormalities. Grade I/IV diastolic dysfunction (abnormal relaxation filling pattern), normal to mildly elevated filling pressures. Right Ventricle The right ventricle is normal in size and function. Right Atrium The right atrium is normal in size. Left Atrium Upper limit of normal size Mitral Valve No gross abnormalities noted Aortic Valve Thickened aortic valve. Tricuspid Valve Trace tricuspid valve regurgitation. Estimated pulmonary artery peak systolic pressure 40 mmHg Pulmonic Valve Structurally normal pulmonic valve without significant stenosis. There is no pulmonic regurgitation. Pericardium Normal pericardium without effusion. Aorta Normal ascending aorta dimension. CONCLUSIONS Normal left ventricular size and systolic function, EF 69 %. Mild left ventricular hypertrophy. No regional wall motion abnormalities. Grade I/IV diastolic dysfunction (abnormal relaxation filling pattern), normal to mildly elevated filling pressures. Thickened aortic valve. Trace tricuspid valve regurgitation. Estimated pulmonary artery peak systolic pressure 40 mmHg. There is no pericardial effusion. There are no intracardiac masses. Compared to the study from 11/12/2016, there may not be a significant change. Dr Keerthi Torres MD FACC (Electronically Signed) Final Date: 02 September 2021 23:33 S
== END 2021-09-02 14:37 | disposition home or self-care (01) ==
LOC: US 14:37
PROVIDERS: PCP Family Medicine; Visit Provider Internal Medicine Cardiovascular Disease
DX: R06.00 Dyspnea, unspecified (principal); R06.02 Shortness of breath; I08.2 Rheumatic disorders of both aortic and tricuspid valves
CPT/HCPCS: 93306

== ENCOUNTER → 2021-09-04 15:15 | Outpatient (BNVA) | payer MEDICARE, SELFPAY | PROVIDERS: PCP Family Medicine; Visit Provider Urology | DX: R97.20 Elevated prostate specific antigen [PSA] (principal); N40.1 Benign prostatic hyperplasia with lower urinary tract symptoms; R79.89 Other specified abnormal findings of blood chemistry; C61 Malignant neoplasm of prostate | CPT/HCPCS: 81003; 84153; 84403 ==

== ENCOUNTER → 2021-10-16 14:18 | Outpatient (BNVA) | payer MEDICARE, SELFPAY | PROVIDERS: PCP Family Medicine; Visit Provider Internal Medicine Rheumatology | DX: M06.041 Rheumatoid arthritis without rheumatoid factor, right hand (principal); M06.042 Rheumatoid arthritis without rheumatoid factor, left hand; Z79.899 Other long term (current) drug therapy; C61 Malignant neoplasm of prostate; Z92.3 Personal history of irradiation; Z85.72 Personal history of non-Hodgkin lymphomas; Z71.89 Other specified counseling | CPT/HCPCS: 99214 ==

== ENCOUNTER → 2022-02-20 14:58 | Outpatient (BNVA) | payer MEDICARE, SELFPAY | PROVIDERS: PCP Family Medicine; Visit Provider Internal Medicine Cardiovascular Disease | DX: R55 Syncope and collapse (principal); R00.2 Palpitations; R06.00 Dyspnea, unspecified; I11.0 Hypertensive heart disease with heart failure; I50.33 Acute on chronic diastolic (congestive) heart failure | CPT/HCPCS: 36415; 80048; 83880; 99214 ==

== ENCOUNTER 2022-03-03 11:25 | Outpatient (CLI) | payer MEDICARE, SELFPAY ==
[2022-03-03 12:44] LABS: Anion Gap 14.4 (5-19); Blood Urea Nitrogen 21 mg/dL (8-23); Calcium 9.2 mg/dL (8.5-10.5); Carbon Dioxide 21 mmol/L (22-29); Chloride 104 mmol/L (98-107); Glomerular Filtration Rate 73.9 mL/min (90-130); Glucose 152 mg/dL (65-115); NT Pro B Type Natriuretic Pept 171 pg/mL (0-125); Osmolality Calculated 286 mOsm/kg (285-295); Potassium 4.4 mmol/L (3.5-5.1); Sodium 135 mmol/L (136-145)
[2022-03-03 14:32] LABS: Prostate Specific Antigen 0.533 ng/mL (0-4)
== END 2022-03-03 11:26 | disposition home or self-care (01) ==
PROVIDERS: PCP Family Medicine; Referring Provider Urology; Visit Provider Internal Medicine Cardiovascular Disease
DX: I50.9 Heart failure, unspecified (principal); R06.02 Shortness of breath; N40.1 Benign prostatic hyperplasia with lower urinary tract symptoms
CPT/HCPCS: 36415; 80048; 81003; 83880; 84153; 84403

== ENCOUNTER → 2022-04-07 13:39 | Outpatient (BNVA) | payer MEDICARE, SELFPAY | PROVIDERS: PCP Family Medicine; Visit Provider Internal Medicine Rheumatology | DX: M06.041 Rheumatoid arthritis without rheumatoid factor, right hand (principal); M06.042 Rheumatoid arthritis without rheumatoid factor, left hand; Z79.899 Other long term (current) drug therapy; Z92.3 Personal history of irradiation; Z85.79 Personal history of other malignant neoplasms of lymphoid, hematopoietic and related tissues; Z71.89 Other specified counseling | CPT/HCPCS: 36415; 80076; 85025; 99214 ==

== ENCOUNTER 2022-06-09 08:10 | Outpatient (CLI) | payer MEDICARE, SELFPAY ==
--- NOTE | 2022-06-09 08:28 | NMCV_ITS ---
NM koko perf SPECT r/s* [id number] Xavi Squires Age: 72 Gender: M : 1950 Exam Date: 06/09/2022 08:28 Ordering Phys: Keerthi Torres MD ([email or web address]) Technologist: RAIMUNDO Nuno Exam Location: [facility] Indications: HEART FAILURE STRESS TEST Please see separate stress test report in [facility] for full findings IMAGE PROTOCOL Rest/Stress 1 Lexiscan Day Radiopharmaceutical Dose (mCi) Administration Site Administered by Rest: Tc-99m 11.0 IV RAIMUNDO Ashton Sestamibi Stress:Tc-99m 33.0 IV RAIMUNDO Ashton Sestamibi Rest: 09-Jun-2022 60 Discovery 630 Stress: 09-Jun-2022 30 Discovery 630 0.4mg Lexiscan. Images obtained in supine and prone position. SPECT RESULTS Technical Quality: Excellent Raw Data Analysis: Normal Image Corrections: No attenuation or motion correction applied Summed Stress Score: 1 Summed Rest Score: 0 Summed Difference Score: 1 PERFUSION FINDINGS A small area of slightly decreased tracer uptake in the mid inferolateral region, with some reversibility. Some attenuation artifacts also were noted in this region FUNCTIONAL RESULTS (calculated via Gated SPECT) Stress Image LV EF (%): 87 Stress EDV (mL):69 TID: 0.9 Stress ESV (mL):9 FUNCTIONAL FINDINGS: Segmental wall motion analysis revealing no gross wall motion abnormalities IMPRESSIONS 1. Myocardial perfusion imaging revealing a small area of reversible defect in the inferolateral region, may suggest ischemia in distribution of the left circumflex artery. However because of the attenuation artifact the reliability is questionable. 2. Normal LV ejection fraction of 87%. 3. LV wall motion analysis revealing no gross wall motion normalities. 4. Normal LV volume. No similar previous studies are available for comparison Dr Keerthi Torres MD [facility] (Electronically Signed) Final Date: 10 June 2022 19:03 S
--- NOTE | 2022-06-09 08:28 | ECG_ITS ---
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 Interpretive Statements NAME OF STUDY: LEXISCAN SESTAMIBI STRESS TEST INDICATION: [CHF, ] Procedure: At the baseline, the blood pressure was 154/77 mmHg with a heart rate of 75 bpm. The electrocardiogram showed normal sinus rhythm, normal axis with normal ST and T's. The Lexiscan was infused over a period of 20 seconds. A total of 0.4 mg of Lexiscan was infused. The stress phase was continued for a total of 5 minutes. Heart rate was at the end of stress phase was 91 bpm and a blood pressure of 153/73 mmHg. The EKG at the peak infusion revealed since normal sinus rhythm with no significant ST-T wave changes. Sestamibi was injected 20 seconds after the Lexiscan infusion. Blood pressure at the end of recovery phase was 144/72 mmHg with a heart rate of 89 bpm. Conclusion: 1. Normal EKG response to Lexiscan infusion 2. No Lexiscan induced chest pain or cardiac arrhythmia. 3. Normal blood pressure and heart rate response. 4. Sestamibi/sestamibi perfusion scan pending; see separate report. Electronically Signed On 06-21-2022 12:18:46 CDT by Norbert Gonzalez M.D. [id number]
[2022-06-09 09:23] VITALS: BMI 41.5
[2022-06-09] MEDS: regadenoson 0.4 Mg/5 ml Syringe IVP (10:18)
[2022-06-09 10:57] VITALS: BP 144/72; PULSE 89
== END 2022-06-09 08:11 | disposition home or self-care (01) ==
PROVIDERS: PCP Family Medicine; Visit Provider Internal Medicine Cardiovascular Disease
DX: I50.9 Heart failure, unspecified (principal)
CPT/HCPCS: 78452; 93017; A9500; J2785

== ENCOUNTER 2022-07-08 11:33 | Outpatient (CLI) | payer MEDICARE, SELFPAY ==
[2022-07-08 12:39] LABS: Alanine Aminotransferase 23 U/L (0-41); Albumin Level 3.8 g/dL (3.5-5.2); Alkaline Phosphatase 67 IU/L (40-130); C Reactive Protein 5.1 mg/L (0.0-4.9); Globulin 2.8 g/dL (1.3-4.6); Total Bilirubin 0.4 mg/dL (0.15-1.2); Total Protein 6.6 g/dL (6.6-8.7)
[2022-07-08 12:43] LABS: Aspartate Amino Transferase 28 U/L (0-40)
== END 2022-07-08 11:34 | disposition home or self-care (01) ==
LOC: LAB 11:36
PROVIDERS: PCP Family Medicine; Visit Provider Internal Medicine Rheumatology
DX: M06.041 Rheumatoid arthritis without rheumatoid factor, right hand (principal); M06.042 Rheumatoid arthritis without rheumatoid factor, left hand; Z79.899 Other long term (current) drug therapy
CPT/HCPCS: 36415; 80076; 82565; 86140

== ENCOUNTER → 2022-08-28 15:42 | Outpatient (BNVA) | payer MEDICARE, SELFPAY | PROVIDERS: PCP Family Medicine; Visit Provider Internal Medicine Cardiovascular Disease | DX: R06.02 Shortness of breath (principal); M79.89 Other specified soft tissue disorders; R07.9 Chest pain, unspecified; I10 Essential (primary) hypertension; R00.1 Bradycardia, unspecified; E78.1 Pure hyperglyceridemia; J44.9 Chronic obstructive pulmonary disease, unspecified | CPT/HCPCS: 36415; 80048; 83880; 99214 ==

== ENCOUNTER 2022-09-09 12:10 | Outpatient (CLI) | payer MEDICARE, SELFPAY ==
[2022-09-09 13:10] LABS: Prostate Specific AG Urology 1.19 ng/mL (0-4)
[2022-09-09 13:12] LABS: Testosterone Total 536.7 ng/dL (193-740)
== END 2022-09-09 12:11 | disposition home or self-care (01) ==
LOC: LAB 12:11
PROVIDERS: PCP Family Medicine; Visit Provider Urology
DX: C61 Malignant neoplasm of prostate (principal); R79.89 Other specified abnormal findings of blood chemistry
CPT/HCPCS: 36415; 81003; 84153; 84403; 99213

== ENCOUNTER 2022-09-17 11:21 | Outpatient (CLI) | payer MEDICARE, SELFPAY ==
--- NOTE | 2022-09-17 11:45 | MR_ITS ---
WS: [id number] MRI BRAIN WITHOUT CONTRAST HISTORY: RIGHT SIDED HEADACHE COMPARISON: 07/26/2015 TECHNIQUE: Diffusion imaging, multiplanar T1, T2 and FLAIR imaging obtained. Unsuccessful IV access a ttempts. No evidence for acute infarct or hemorrhage. Moreno-white matter differentiation is normal.. Mild age-r elated atrophy. There are a few new scattered T2 and FLAIR signal hyperintensities within the white matter. These are a subcortical distribution with only very slight increase in number since 2014. No hemorrhage or inf arct. No signal abnormality in the sravani or cerebellum. Ventricles and extra-axial spaces are normal. No inferior displacement of cerebellar tonsils. The sella turcica and pituitary gland are unremarkabl e. Dural venous sinuses and [place] demonstrate no abnormality on this unenhanced studies. Paranasal sinuses: Clear. Mastoid air cells: Normal. Calvarium and scalp: Intact. Mild deformity of the RIGHT lobe seen on some of the sequences is probably due to an artifact and the magnetic field. No mass. Otherwise no signal abnormalities within the orbits or globes. MR/MR head wo con* [id number] IMPRESSION: 1. No acute infarct, no mass effect or hemorrhage. 2. Very mild but age appropriate cerebral atrophy. 3. Minimal small vessel ischemic disease. Mild progression since 2014.
== END 2022-09-17 11:22 | disposition home or self-care (01) ==
PROVIDERS: PCP Family Medicine; Visit Provider Family Medicine
DX: R51.9 Headache, unspecified (principal); I67.82 Cerebral ischemia
CPT/HCPCS: 70551

== ENCOUNTER 2022-10-15 10:21 | Outpatient (CLI) | payer MEDICARE, SELFPAY ==
[2022-10-15 11:10] LABS: Basophils % 0.6 %; Eosinophils # 0.1 10^3/uL (0.0-0.8); Eosinophils % 2.1 %; Hematocrit 44.5 % (42.0-52.0); Lymphocytes # 0.9 10^3/uL (0.8-4.8); Lymphocytes % 13.7 %; Mean Corpuscular HGB Conc 31.5 g/dL (30.0-36.0); Mean Corpuscular Hemoglobin 29.4 pg (28.0-34.0); Mean Corpuscular Volume 93.3 fl (80-94); Mean Platelet Volume 9.1 fL (7.4-10.4); Monocytes # 0.7 10^3/uL (0.2-0.9); Monocytes % 9.6 %; Neutrophils # 4.97 10^3/uL (1.8-7.7); Neutrophils % 73.4 %; Nucleated Red Blood Cells % 0 %; Platelet Count 190 10^3/cmm (130-400); Red Blood Count 4.77 10^6/uL (4.1-5.3); Red Cell Distribution Width 13.2 % (12.1-15.1); White Blood Count 6.8 10^3/uL (4.0-10.0)
[2022-10-15 11:50] LABS: Alanine Aminotransferase 18 U/L (0-41); Albumin Level 3.7 g/dL (3.5-5.2); Alkaline Phosphatase 80 U/L (40-130); Anion Gap 14.3 (5-19); Aspartate Amino Transferase 17 U/L (0-40); Blood Urea Nitrogen 17 mg/dL (8-23); Calcium 9.1 mg/dL (8.5-10.5); Carbon Dioxide 24 mmol/L (22-29); Chloride 104 mmol/L (98-107); Ferritin 110 ng/mL (30-400); Globulin 3.3 g/dL (1.3-4.6); Glucose 103 mg/dL (65-115); Iron 68 ug/dL (59-158); Osmolality Calculated 288 mOsm/kg (285-295); Percent Saturation 24.9 % (20-50); Potassium 4.3 mmol/L (3.5-5.1); Sodium 138 mmol/L (136-145); Thyroid Stimulating Hormone 1.78 uIU/mL (0.27-4.20); Total Bilirubin 0.4 mg/dL (0.15-1.2); Total Iron Binding Capacity 273 mcg/dl; Unsaturated Iron Binding 205 ug/dL (112-347); Vitamin B12 361 pg/mL (232-1245)
== END 2022-10-15 10:22 | disposition home or self-care (01) ==
LOC: LAB 10:28
PROVIDERS: PCP Family Medicine; Referring Provider Internal Medicine Rheumatology; Visit Provider Nurse Practitioner
DX: R51.9 Headache, unspecified (principal); R53.83 Other fatigue; Z79.899 Other long term (current) drug therapy; C61 Malignant neoplasm of prostate; Z86.16 Personal history of COVID-19; R11.0 Nausea
CPT/HCPCS: 36415; 80053; 82607; 82728; 83540; 83550; 84443; 85025; 99203

== ENCOUNTER → 2022-10-21 12:45 | Outpatient (BNVA) | payer MEDICARE, SELFPAY | PROVIDERS: PCP Family Medicine; Visit Provider Internal Medicine Rheumatology | DX: M06.041 Rheumatoid arthritis without rheumatoid factor, right hand (principal); M06.042 Rheumatoid arthritis without rheumatoid factor, left hand; Z79.899 Other long term (current) drug therapy; Z71.89 Other specified counseling; Z92.3 Personal history of irradiation; Z85.858 Personal history of malignant neoplasm of other endocrine glands; Z85.72 Personal history of non-Hodgkin lymphomas; C61 Malignant neoplasm of prostate | CPT/HCPCS: 99214 ==

== ENCOUNTER 2022-12-17 14:24 | Outpatient (CLI) | payer MEDICARE, SELFPAY ==
[2022-12-17 15:23] LABS: Prostate Specific AG Urology 2.54 ng/mL (0-4)
[2022-12-17 15:24] LABS: Testosterone Total 466.6 ng/dL (193-740)
== END 2022-12-17 14:25 | disposition home or self-care (01) ==
LOC: LAB 14:26
PROVIDERS: PCP Family Medicine; Visit Provider Urology
DX: C61 Malignant neoplasm of prostate (principal); R79.89 Other specified abnormal findings of blood chemistry
CPT/HCPCS: 84153; 84403

== ENCOUNTER → 2022-12-22 15:18 | Outpatient (BNVA) | payer MEDICARE, SELFPAY | PROVIDERS: PCP Family Medicine; Visit Provider Urology | DX: C61 Malignant neoplasm of prostate (principal); R97.21 Rising PSA following treatment for malignant neoplasm of prostate | CPT/HCPCS: 81003; 99213 ==

== ENCOUNTER 2023-01-16 13:06 | Outpatient (CLI) | payer MEDICARE, SELFPAY ==
[2023-01-16 14:03] LABS: Basophils % 0.5 %; Eosinophils % 0.2 %; Hematocrit 42.1 % (42.0-52.0); Hemoglobin 13.3 g/dL (11.7-16.6); Lymphocytes # 0.6 10^3/uL (0.8-4.8); Lymphocytes % 11.4 %; Mean Corpuscular HGB Conc 31.6 g/dL (30.0-36.0); Mean Corpuscular Volume 91.7 fl (80-94); Mean Platelet Volume 9.3 fL (7.4-10.4); Monocytes # 0.2 10^3/uL (0.2-0.9); Monocytes % 3.2 %; Neutrophils # 4.65 10^3/uL (1.8-7.7); Neutrophils % 83.8 %; Nucleated Red Blood Cells % 0 %; Platelet Count 159 10^3/cmm (130-400); Red Blood Count 4.59 10^6/uL (4.1-5.3); Red Cell Distribution Width 13.3 % (12.1-15.1); White Blood Count 5.6 10^3/uL (4.0-10.0)
[2023-01-16 14:14] LABS: Alanine Aminotransferase 24 U/L (0-41); Albumin Level 3.9 g/dL (3.5-5.2); Alkaline Phosphatase 76 U/L (40-130); Aspartate Amino Transferase 24 U/L (0-40); C Reactive Protein 6.2 mg/L (0.0-4.9); Globulin 2.5 g/dL (1.3-4.6); Total Bilirubin 0.4 mg/dL (0.15-1.2); Total Protein 6.4 g/dL (6.6-8.7)
== END 2023-01-16 13:07 | disposition home or self-care (01) ==
LOC: LAB 13:09
PROVIDERS: PCP Family Medicine; Visit Provider Internal Medicine Rheumatology
DX: M06.041 Rheumatoid arthritis without rheumatoid factor, right hand (principal); M06.042 Rheumatoid arthritis without rheumatoid factor, left hand; Z79.899 Other long term (current) drug therapy
CPT/HCPCS: 36415; 80076; 82565; 85025; 86140

== ENCOUNTER → 2023-03-04 10:45 | Outpatient (BNVA) | payer MEDICARE, SELFPAY | PROVIDERS: PCP Family Medicine; Visit Provider Nurse Practitioner | DX: R51.9 Headache, unspecified (principal); Z86.16 Personal history of COVID-19 | CPT/HCPCS: 99213 ==

== ENCOUNTER 2023-03-23 11:30 | Oncology outpatient (recurring) (ONCR) | payer MEDICARE, SELFPAY ==
[2023-03-09 10:44] LABS: Basophils % 0.2 %; Eosinophils # 0.1 10^3/uL (0.0-0.8); Eosinophils % 0.8 %; Hematocrit 46.1 % (42.0-52.0); Hemoglobin 14.8 g/dL (11.7-16.6); Lymphocytes # 1.1 10^3/uL (0.8-4.8); Lymphocytes % 8.9 %; Mean Corpuscular HGB Conc 32.1 g/dL (30.0-36.0); Mean Corpuscular Volume 90.4 fl (80-94); Monocytes # 1.2 10^3/uL (0.2-0.9); Monocytes % 9.5 %; Neutrophils # 9.75 10^3/uL (1.8-7.7); Neutrophils % 79.1 %; Nucleated Red Blood Cells % 0 %; Platelet Count 224 10^3/cmm (130-400); Red Cell Distribution Width 13.6 % (12.1-15.1); White Blood Count 12.3 10^3/uL (4.0-10.0)
[2023-03-09 11:13] LABS: Alanine Aminotransferase 21 U/L (0-41); Albumin Level 3.4 g/dL (3.5-5.2); Alkaline Phosphatase 69 U/L (40-130); Anion Gap 16.1 (5-19); Aspartate Amino Transferase 14 U/L (0-40); Blood Urea Nitrogen 28 mg/dL (8-23); Calcium 7.9 mg/dL (8.5-10.5); Carbon Dioxide 22 mmol/L (22-29); Chloride 107 mmol/L (98-107); Globulin 2.6 g/dL (1.3-4.6); Glucose 146 mg/dL (65-115); Osmolality Calculated 300 mOsm/kg (285-295); Potassium 4.1 mmol/L (3.5-5.1); Sodium 141 mmol/L (136-145); Testosterone Total 464.2 ng/dL (193-740); Total Bilirubin 0.4 mg/dL (0.15-1.2)
[2023-03-23 11:02] VITALS: BP 125/72; PULSE 54; TEMP 36.1; O2SAT 98
[2023-03-23] MEDS: leuprolide 22.5 mg Kit IM (11:10)
== END 2023-03-29 23:59 | disposition home or self-care (01) ==
PROVIDERS: PCP Family Medicine; Visit Provider Internal Medicine Medical Oncology
DX: C61 Malignant neoplasm of prostate (principal)
CPT/HCPCS: 36415; 80053; 84153; 84403; 85025; 96402; 99214; 99215; J9217

== ENCOUNTER → 2023-04-08 14:08 | Outpatient (BNVA) | payer MEDICARE, SELFPAY | PROVIDERS: PCP Family Medicine; Visit Provider Internal Medicine Pulmonary Disease | DX: R06.09 Other forms of dyspnea (principal); R91.8 Other nonspecific abnormal finding of lung field; M06.9 Rheumatoid arthritis, unspecified; Z80.42 Family history of malignant neoplasm of prostate | CPT/HCPCS: 99204 ==

== ENCOUNTER 2023-04-16 13:14 | Outpatient (CLI) | payer MEDICARE, SELFPAY ==
[2023-04-16 14:59] LABS: Basophils % 0.7 %; Eosinophils # 0.1 10^3/uL (0.0-0.8); Eosinophils % 1.4 %; Hematocrit 41.3 % (42.0-52.0); Hemoglobin 13.3 g/dL (11.7-16.6); Lymphocytes # 0.9 10^3/uL (0.8-4.8); Lymphocytes % 15.4 %; Mean Corpuscular HGB Conc 32.2 g/dL (30.0-36.0); Mean Corpuscular Hemoglobin 29.6 pg (28.0-34.0); Mean Platelet Volume 9.7 fL (7.4-10.4); Monocytes # 0.7 10^3/uL (0.2-0.9); Monocytes % 11.2 %; Neutrophils # 4.19 10^3/uL (1.8-7.7); Neutrophils % 70.8 %; Nucleated Red Blood Cells % 0 %; Platelet Count 173 10^3/cmm (130-400); Red Blood Count 4.49 10^6/uL (4.1-5.3); Red Cell Distribution Width 13.2 % (12.1-15.1); White Blood Count 5.9 10^3/uL (4.0-10.0)
[2023-04-16 15:12] LABS: C Reactive Protein 7.6 mg/L (0.0-4.9)
[2023-04-16 15:25] LABS: Alanine Aminotransferase 25 U/L (0-41); Albumin Level 3.8 g/dL (3.5-5.2); Alkaline Phosphatase 65 U/L (40-130); Anion Gap 15.5 (5-19); Aspartate Amino Transferase 22 U/L (0-40); Blood Urea Nitrogen 29 mg/dL (8-23); Calcium 8.4 mg/dL (8.5-10.5); Carbon Dioxide 22 mmol/L (22-29); Chloride 104 mmol/L (98-107); Globulin 2.5 g/dL (1.3-4.6); Glucose 92 mg/dL (65-115); Osmolality Calculated 289 mOsm/kg (285-295); Potassium 4.5 mmol/L (3.5-5.1); Prostate Specific Antigen 0.717 ng/mL (0-4); Sodium 137 mmol/L (136-145); Total Bilirubin 0.4 mg/dL (0.15-1.2); Total Protein 6.3 g/dL (6.6-8.7)
[2023-04-16 15:48] LABS: Testosterone Total 15.4 ng/dL (193-740)
== END 2023-04-16 13:15 | disposition home or self-care (01) ==
LOC: LAB 13:23
PROVIDERS: Internal Medicine Medical Oncology; PCP Family Medicine; Visit Provider Internal Medicine Rheumatology
DX: M06.041 Rheumatoid arthritis without rheumatoid factor, right hand (principal); M06.042 Rheumatoid arthritis without rheumatoid factor, left hand; C61 Malignant neoplasm of prostate; Z79.899 Other long term (current) drug therapy
CPT/HCPCS: 80053; 84153; 84403; 85025; 86140

== ENCOUNTER → 2023-04-20 12:26 | Outpatient (BNVA) | payer MEDICARE, SELFPAY | PROVIDERS: PCP Family Medicine; Visit Provider Internal Medicine Rheumatology | DX: M06.041 Rheumatoid arthritis without rheumatoid factor, right hand (principal); M06.042 Rheumatoid arthritis without rheumatoid factor, left hand; Z79.899 Other long term (current) drug therapy; Z71.89 Other specified counseling; C61 Malignant neoplasm of prostate; C79.51 Secondary malignant neoplasm of bone; R42 Dizziness and giddiness; Z79.52 Long term (current) use of systemic steroids; Z79.818 Long term (current) use of other agents affecting estrogen receptors and estrogen levels | CPT/HCPCS: 99214 ==

== ENCOUNTER 2023-05-25 10:41 | Outpatient (CLI) | payer MEDICARE, SELFPAY ==
--- NOTE | 2023-05-25 11:00 | CT_ITS ---
WS: [id number] CT chest wo con [id number] HISTORY: f/u TECHNIQUE: Axial imaging performed through the thorax. Coronal and sagittal reformats are submitted. All CT scans at [facility] use at least one of these dose optimization techniques: automated exposure control; mA and/or kV adjustment per patient size (includes targeted exams where dose is mat ched to clinical indication); or iterative reconstruction. CONTRAST: Omnipaque 350; 100 mL IV. DLP: 459.92 mGy.cm COMPARISON: PET CT 02/05/2023. Prior CT 11/19/2016. Lungs and central airway: Chronic emphysema. Biapical spiculated nodules. Largest at the RIGHT apex m easures 10 mm. Very slightly increased in size from the PET/CT of 02/05/2023. Additional spiculated nod ule anterior LEFT upper lobe 13 mm is unchanged. Groundglass attenuation RIGHT upper lobe is an area of atelectasis. There is an adjacent benign calcification. There are additional partially calcified n odules which are likely benign. There are additional noncalcified nodules. 5 mm nodule RIGHT middle l obe. Pleura: Normal. No pleural effusion. Heart and pericardium: Mild cardiomegaly. Mediastinum and roberth: No mediastinum or hilar adenopathy. Vessels: Mild enlargement of the pulmonary artery. Chest wall and lower neck: No soft tissue masses. Upper abdomen: Normal. Osseous structures: Increase in thoracic kyphosis. No destructive bone lesions. No sclerotic lesions are identified by CT. Note: The PET/CT report was not available for review and comparison at the time of this dictation. I have requested the PET/CT report be submitted from [facility]. CT/CT chest wo con [id number] IMPRESSION: 1. Biapical spiculated pulmonary nodules. The largest at the RIGHT apex is 10 mm. Indeterminate for neoplasm. Very minimal increase in size since the PET/CT of 02/05/2023. 2. No adenopathy. 3. Bilateral partially calcified nodules. PET CT negative. 4. Mild cardiomegaly. 5. No sclerotic bone lesions are identified.
== END 2023-05-25 10:42 | disposition home or self-care (01) ==
PROVIDERS: PCP Family Medicine; Visit Provider Internal Medicine Pulmonary Disease
DX: R91.8 Other nonspecific abnormal finding of lung field (principal)
CPT/HCPCS: 71250

== ENCOUNTER 2023-05-26 12:30 | Outpatient (CLI) | payer MEDICARE, SELFPAY ==
[2023-05-26] MEDS: albuterol 2.5 mg/3 mL Neb INHALATION (13:27)
== END 2023-05-26 12:31 | disposition home or self-care (01) ==
PROVIDERS: PCP Family Medicine; Visit Provider Internal Medicine Pulmonary Disease
DX: R06.02 Shortness of breath (principal)
CPT/HCPCS: 94060; 94726; 94729; J7613

== ENCOUNTER 2023-06-15 09:59 | Oncology outpatient (recurring) (ONCR) | payer MEDICARE, SELFPAY ==
[2023-06-15 10:02] VITALS: BP 117/70; PULSE 60; RESP 18; TEMP 36.3; O2SAT 97
[2023-06-15 10:18] LABS: Basophils # 0.1 10^3/uL (0.0-0.1); Eosinophils % 0.8 %; Hematocrit 39.5 % (42.0-52.0); Hemoglobin 12.5 g/dL (11.7-16.6); Lymphocytes # 0.5 10^3/uL (0.8-4.8); Lymphocytes % 9.7 %; Mean Corpuscular HGB Conc 31.6 g/dL (30.0-36.0); Mean Corpuscular Hemoglobin 29.6 pg (28.0-34.0); Mean Corpuscular Volume 93.6 fl (80-94); Mean Platelet Volume 9.1 fL (7.4-10.4); Monocytes # 0.5 10^3/uL (0.2-0.9); Monocytes % 8.7 %; Neutrophils # 4.16 10^3/uL (1.8-7.7); Nucleated Red Blood Cells % 0 %; Platelet Count 157 10^3/cmm (130-400); Red Blood Count 4.22 10^6/uL (4.1-5.3); Red Cell Distribution Width 13.5 % (12.1-15.1); White Blood Count 5.3 10^3/uL (4.0-10.0)
[2023-06-15 10:48] LABS: Alanine Aminotransferase 13 U/L (0-41); Albumin Level 3.6 g/dL (3.5-5.2); Alkaline Phosphatase 59 U/L (40-130); Anion Gap 14.6 (5-19); Aspartate Amino Transferase 14 U/L (0-40); Blood Urea Nitrogen 26 mg/dL (8-23); Calcium 8.7 mg/dL (8.5-10.5); Carbon Dioxide 23 mmol/L (22-29); Chloride 105 mmol/L (98-107); Globulin 2.4 g/dL (1.3-4.6); Glucose 116 mg/dL (65-115); Osmolality Calculated 292 mOsm/kg (285-295); Potassium 4.6 mmol/L (3.5-5.1); Prostate Specific Antigen 0.019 ng/mL (0-4); Sodium 138 mmol/L (136-145); Total Bilirubin 0.2 mg/dL (0.15-1.2)
[2023-06-15] MEDS: leuprolide 22.5 mg Kit IM (12:10)
== END 2023-06-29 23:59 | disposition home or self-care (01) ==
PROVIDERS: PCP Family Medicine; Visit Provider Internal Medicine Medical Oncology
DX: C61 Malignant neoplasm of prostate (principal); C79.51 Secondary malignant neoplasm of bone; R91.1 Solitary pulmonary nodule; Z85.72 Personal history of non-Hodgkin lymphomas; Z79.818 Long term (current) use of other agents affecting estrogen receptors and estrogen levels; Z79.899 Other long term (current) drug therapy; Z92.3 Personal history of irradiation
CPT/HCPCS: 36415; 80053; 84153; 85025; 96402; 99214; J9217

== ENCOUNTER → 2023-06-19 09:53 | Outpatient (BNVA) | payer MEDICARE, SELFPAY | PROVIDERS: PCP Family Medicine; Visit Provider Internal Medicine Pulmonary Disease | DX: J44.9 Chronic obstructive pulmonary disease, unspecified (principal); R91.8 Other nonspecific abnormal finding of lung field; M06.9 Rheumatoid arthritis, unspecified; J98.4 Other disorders of lung; E66.9 Obesity, unspecified; Z68.38 Body mass index [BMI] 38.0-38.9, adult; Z80.42 Family history of malignant neoplasm of prostate | CPT/HCPCS: 99214 ==

== ENCOUNTER → 2023-07-15 12:29 | Outpatient (BNVA) | payer MEDICARE, SELFPAY | PROVIDERS: PCP Family Medicine; Visit Provider Internal Medicine Rheumatology | DX: M06.041 Rheumatoid arthritis without rheumatoid factor, right hand (principal); M06.042 Rheumatoid arthritis without rheumatoid factor, left hand; Z79.899 Other long term (current) drug therapy; Z71.89 Other specified counseling; R97.21 Rising PSA following treatment for malignant neoplasm of prostate; Z79.52 Long term (current) use of systemic steroids; Z92.3 Personal history of irradiation; Z85.858 Personal history of malignant neoplasm of other endocrine glands; Z85.72 Personal history of non-Hodgkin lymphomas; C79.51 Secondary malignant neoplasm of bone; C61 Malignant neoplasm of prostate | CPT/HCPCS: 99214 ==

== ENCOUNTER 2023-09-07 11:43 | Oncology outpatient (recurring) (ONCR) | payer MEDICARE, SELFPAY ==
[2023-09-07 12:20] VITALS: BP 108/71; PULSE 56; RESP 16; TEMP 36.5; O2SAT 96
[2023-09-07 12:42] LABS: Basophils % 0.7 %; Eosinophils # 0.1 10^3/uL (0.0-0.8); Eosinophils % 1.6 %; Hematocrit 39.8 % (37-53); Lymphocytes # 0.5 10^3/uL (0.8-4.8); Mean Corpuscular HGB Conc 32.9 g/dL (30-55); Mean Corpuscular Hemoglobin 30.8 pg (27-33); Mean Corpuscular Volume 93.6 fl (82-101); Mean Platelet Volume 9.1 fL (7.4-10.4); Monocytes # 0.5 10^3/uL (0.2-0.9); Monocytes % 8.8 %; Neutrophils # 4.95 10^3/uL (1.8-7.7); Neutrophils % 80.4 %; Nucleated Red Blood Cells % 0 %; Platelet Count 173 10^3/cmm (157-399); Red Blood Count 4.25 10^6/uL (3.85-5.65); Red Cell Distribution Width 12.5 % (12.1-15.1); White Blood Count 6.15 10^3/uL (3.29-11.43)
[2023-09-07 13:39] LABS: Alanine Aminotransferase 11 U/L (0-41); Albumin Level 3.7 g/dL (3.5-5.2); Alkaline Phosphatase 58 U/L (40-130); Anion Gap 14.5 (5-19); Aspartate Amino Transferase 14 U/L (0-40); Blood Urea Nitrogen 32 mg/dL (8-23); Carbon Dioxide 23 mmol/L (22-29); Chloride 102 mmol/L (98-107); Globulin 2.3 g/dL (1.3-4.6); Glucose 105 mg/dL (65-115); Osmolality Calculated 287 mOsm/kg (285-295); Potassium 4.5 mmol/L (3.5-5.1); Sodium 135 mmol/L (136-145); Total Bilirubin 0.3 mg/dL (0.15-1.2)
[2023-09-07 13:48] LABS: Testosterone Total 2.5 ng/dL (193-740)
[2023-09-07 13:50] LABS: Prostate Specific Antigen < 0.014 ng/mL (0-4)
[2023-09-07] MEDS: leuprolide 22.5 mg Kit IM (14:40)
== END 2023-09-29 23:59 | disposition home or self-care (01) ==
PROVIDERS: PCP Family Medicine; Visit Provider Internal Medicine Medical Oncology
DX: C61 Malignant neoplasm of prostate (principal); Z85.72 Personal history of non-Hodgkin lymphomas; R91.8 Other nonspecific abnormal finding of lung field; Z79.899 Other long term (current) drug therapy
CPT/HCPCS: 36591; 80053; 84153; 84403; 85025; 96402; 99214; J9217

== ENCOUNTER → 2023-09-23 13:37 | Outpatient (BNVA) | payer MEDICARE, SELFPAY | PROVIDERS: PCP Family Medicine; Visit Provider Nurse Practitioner Family | DX: I10 Essential (primary) hypertension (principal); R00.2 Palpitations | CPT/HCPCS: 99214 ==

== ENCOUNTER 2023-10-30 10:58 | Outpatient (CLI) | payer MEDICARE, SELFPAY ==
[2023-10-30] MEDS: iohexol 350 mg/mL 500 mL Btl (per mL) PO (11:15)
--- NOTE | 2023-10-30 12:00 | CT_ITS ---
WS: [id number] CT CHEST TECHNIQUE: Noncontrast CT of the chest with coronal and sagittal reformatted images. CLINICAL INFORMATION: cancer screen COMPARISON: CT 05/25/2023 and PET/CT 02/05/2023 DLP: 615.[address] scans at [facility] use at least one of these dose optimization techniques: automated e xposure control; mA and/or kV adjustment per patient size (includes targeted exams where dose is matc hed to clinical indication); or iterative reconstruction. FINDINGS: Multiple calcified granulomas. Dystrophic calcification or pleural plaques RIGHT lower lobe. Previous ly described 10 mm spiculated nodule in the RIGHT lung apex is unchanged. Additional spiculated nodul e anterior LEFT upper lobe 13 mm unchanged. Biapical fibrosis with a few smaller opacities unchanged. Stable 5 mm nodule RIGHT middle lobe. Stable groundglass opacity RIGHT upper lobe anteriorly unchang ed. Additional subcentimeter scattered nodules appear stable. Stable groundglass opacity LEFT lung ap ex. No new suspicious opacities. Normal caliber thoracic aorta. Thoracic kyphosis. Cardiomegaly. Stable 10 mm RIGHT paratracheal lymph node. IMPRESSION: 1. Previously described 10 mm spiculated nodule in the RIGHT lung apex is unchanged. 2. Additional spiculated nodule anterior LEFT upper lobe 13 mm unchanged. 3. Stable 5 mm nodule RIGHT middle lobe. 4. Additional stable scattered subcentimeter nodules some of which are partially calcified stable ap pearance to previous. 5. No new suspicious opacities. 6. Advanced chronic emphysematous changes. 7. Stable 10 mm RIGHT paratracheal lymph node.
[2023-10-30] MEDS: iohexol 350 mg/mL 500 mL Btl (per mL) IV (12:29)
--- NOTE | 2023-10-30 12:30 | CT_ITS ---
WS: [id number] CT CHEST, ABDOMEN, AND PELVIS TECHNIQUE: Contrast-enhanced CT of the chest, abdomen, and pelvis with coronal and sagittal reformatt ed images. CLINICAL INFORMATION: new low back pain and pain in prostate area > 1 month; resta COMPARISON: CT chest 05/25/[address] abdomen pelvis 02/21/2020. PET/CT 02/05/2023 DLP: 1332.[address] scans at [facility] use at least one of these dose optimization techniques: automated e xposure control; mA and/or kV adjustment per patient size (includes targeted exams where dose is matc hed to clinical indication); or iterative reconstruction. CT CHEST: Proximal main pulmonary arteries are patent. Normal caliber thoracic aorta. Multiple calcified granulomas. Dystrophic calcification or pleural plaques RIGHT lower lobe. Previo usly described 10 mm spiculated nodule in the RIGHT lung apex is unchanged. Additional spiculated nod ule anterior LEFT upper lobe 13 mm unchanged. Biapical fibrosis with a few smaller opacities unchange d. Stable 5 mm nodule RIGHT middle lobe. Stable groundglass opacity RIGHT upper lobe anteriorly uncha nged. Additional subcentimeter scattered nodules appear stable. Stable groundglass opacity LEFT lung apex. No new suspicious opacities. Normal caliber thoracic aorta. Thoracic kyphosis. Cardiomegaly. Stable 10 mm RIGHT paratracheal lymph node. CT ABDOMEN AND PELVIS: Mild diffuse fatty infiltration of the liver. Normal portal vein and splenic vein. Small esophageal h iatal hernia. Normal spleen. Fatty atrophy of the pancreas. Normal caliber abdominal aorta. Celiac an d SMA are patent. Adrenal glands are normal. Normal renal parenchymal enhancement. No hydronephrosis. Bilateral renal c ortical scarring. Small bilateral renal cysts. Small calcified prostate. Normal sigmoid colon. Sigmoi d diverticulosis. No evidence of acute diverticulitis. No small or large bowel obstruction. No para-aortic or pelvic lymphadenopathy. No inguinal lymphadenopathy. Small sclerotic lesion in the L5 vertebral body corresponds to the prior PET/CT findings.. The descri bed rib lesions better visualized on the PET/CT. IMPRESSION: 1. No evidence of progressed disease in the chest. Previously described nodules are stable. 2. Stable RIGHT paratracheal lymph node measuring 10 mm. 3. Stable appearing metastatic focus in L5 vertebral body also seen on the PET/CT. 4. Previously described metastatic lesions in the LEFT ribs better appreciated on the prior PET/CT. 5. No adenopathy in the abdomen or pelvis.
== END 2023-10-30 10:59 | disposition home or self-care (01) ==
LOC: RAD 10:59
PROVIDERS: PCP Family Medicine; Visit Provider Nurse Practitioner Family
DX: C61 Malignant neoplasm of prostate (principal); K76.0 Fatty (change of) liver, not elsewhere classified; K44.9 Diaphragmatic hernia without obstruction or gangrene; N28.1 Cyst of kidney, acquired; K57.30 Diverticulosis of large intestine without perforation or abscess without bleeding; M51.86 Other intervertebral disc disorders, lumbar region; R91.8 Other nonspecific abnormal finding of lung field; M54.50 Low back pain, unspecified
CPT/HCPCS: 71250; 71260; 74177; 82565; 84520; Q9967

== ENCOUNTER 2023-10-30 10:59 | Outpatient (CLI) | payer MEDICARE, SELFPAY ==
[2023-10-30 12:22] LABS: Blood Urea Nitrogen 25 mg/dL (8-23)
== END 2023-10-30 11:00 | disposition home or self-care (01) ==
PROVIDERS: PCP Family Medicine; Visit Provider Internal Medicine Pulmonary Disease
DX: C61 Malignant neoplasm of prostate (principal); R91.8 Other nonspecific abnormal finding of lung field; M54.50 Low back pain, unspecified
CPT/HCPCS: 82565; 84520

== ENCOUNTER → 2023-11-10 14:28 | Outpatient (BNVA) | payer MEDICARE, SELFPAY | PROVIDERS: PCP Family Medicine; Visit Provider Internal Medicine Pulmonary Disease | DX: R91.8 Other nonspecific abnormal finding of lung field (principal); M06.9 Rheumatoid arthritis, unspecified; J98.4 Other disorders of lung; J44.9 Chronic obstructive pulmonary disease, unspecified; E66.01 Morbid (severe) obesity due to excess calories; Z68.41 Body mass index [BMI] 40.0-44.9, adult | CPT/HCPCS: 99214 ==

== ENCOUNTER → 2023-11-11 12:46 | Outpatient (BNVA) | payer MEDICARE, SELFPAY | PROVIDERS: PCP Family Medicine; Visit Provider Internal Medicine Rheumatology | DX: Z79.899 Other long term (current) drug therapy (principal); M06.041 Rheumatoid arthritis without rheumatoid factor, right hand; M06.042 Rheumatoid arthritis without rheumatoid factor, left hand; Z71.89 Other specified counseling; R97.21 Rising PSA following treatment for malignant neoplasm of prostate | CPT/HCPCS: 99214 ==

== ENCOUNTER 2023-12-01 10:48 | Oncology outpatient (recurring) (ONCR) | payer MEDICARE, SELFPAY ==
[2023-12-01 11:19] VITALS: BP 132/79; PULSE 51; RESP 18; TEMP 36.6; O2SAT 97
[2023-12-01 11:46] LABS: Basophils % 0.4 %; Eosinophils # 0.1 10^3/uL (0.0-0.8); Eosinophils % 1.1 %; Hematocrit 41.1 % (37-53); Lymphocytes # 0.7 10^3/uL (0.8-4.8); Lymphocytes % 8.5 %; Mean Corpuscular HGB Conc 32.8 g/dL (30-55); Mean Corpuscular Hemoglobin 31.1 pg (27-33); Mean Corpuscular Volume 94.7 fl (82-101); Mean Platelet Volume 9.1 fL (7.4-10.4); Monocytes # 0.7 10^3/uL (0.2-0.9); Monocytes % 8.2 %; Neutrophils # 6.44 10^3/uL (1.8-7.7); Neutrophils % 80.8 %; Nucleated Red Blood Cells % 0 %; Platelet Count 199 10^3/cmm (157-399); Red Blood Count 4.34 10^6/uL (3.85-5.65); Red Cell Distribution Width 12.3 % (12.1-15.1); White Blood Count 7.97 10^3/uL (3.29-11.43)
[2023-12-01 12:08] LABS: Alanine Aminotransferase 11 U/L (0-41); Albumin Level 3.7 g/dL (3.5-5.2); Alkaline Phosphatase 63 U/L (40-130); Aspartate Amino Transferase 12 U/L (0-40); C Reactive Protein 3.1 mg/L (0.0-4.9); Globulin 2.7 g/dL (1.3-4.6); Total Bilirubin 0.3 mg/dL (0.15-1.2); Total Protein 6.4 g/dL (6.6-8.7); Uric Acid 5.9 mg/dL (3.4-7.0)
[2023-12-01 12:21] LABS: Alanine Aminotransferase 12 U/L (0-41); Albumin Level 3.7 g/dL (3.5-5.2); Alkaline Phosphatase 64 U/L (40-130); Anion Gap 15.3 (5-19); Aspartate Amino Transferase 12 U/L (0-40); Blood Urea Nitrogen 28 mg/dL (8-23); Carbon Dioxide 21 mmol/L (22-29); Chloride 102 mmol/L (98-107); Globulin 2.7 g/dL (1.3-4.6); Glucose 138 mg/dL (65-115); Osmolality Calculated 286 mOsm/kg (285-295); Potassium 4.3 mmol/L (3.5-5.1); Sodium 134 mmol/L (136-145); Total Bilirubin 0.4 mg/dL (0.15-1.2); Total Protein 6.4 g/dL (6.6-8.7)
[2023-12-01 12:25] LABS: Prostate Specific Antigen < 0.014 ng/mL (0-4)
[2023-12-01] MEDS: leuprolide 22.5 mg Kit IM (13:44)
== END 2023-12-30 23:59 | disposition home or self-care (01) ==
PROVIDERS: Internal Medicine Rheumatology; Nurse Practitioner Family; PCP Family Medicine; Visit Provider Internal Medicine Medical Oncology
DX: C61 Malignant neoplasm of prostate (principal); Z85.72 Personal history of non-Hodgkin lymphomas; R91.8 Other nonspecific abnormal finding of lung field; Z79.899 Other long term (current) drug therapy
CPT/HCPCS: 80053; 80076; 82565; 84153; 84550; 85025; 86140; 96402; 99214; J9217

== ENCOUNTER 2023-12-28 09:06 | Outpatient (CLI) | payer MEDICARE, SELFPAY ==
--- NOTE | 2023-12-28 09:30 | NM_ITS ---
WS: [email or web address] NUCLEAR MEDICINE BONE SCAN Radiopharmaceutical: 24.8 Tc-99m MDP mCi IV Injection site: Antecubital Postinjection imaging delay: 1 hr CLINICAL INFORMATION: increased back pain COMPARISON: 02/27/2020 FINDINGS: Bone lesions: There are no osseous lesions suspicious for metastatic disease. Soft tissue contours: Normal. Kidneys: Normal. Other findings: Stable punctate foci of uptake in the RIGHT T7 facet and L5 vertebral body unchanged since 2019 likely degenerative. Degenerative type uptake involving both AC joints and both knees. RIG HT partial TKA. IMPRESSION: No evidence of osseous metastatic disease.
== END 2023-12-28 09:07 | disposition home or self-care (01) ==
PROVIDERS: PCP Family Medicine; Visit Provider Nurse Practitioner Family
DX: C61 Malignant neoplasm of prostate (principal); M54.9 Dorsalgia, unspecified
CPT/HCPCS: 78306; A9561

== ENCOUNTER → 2024-02-10 13:31 | Outpatient (BNVA) | payer MEDICARE, SELFPAY | PROVIDERS: PCP Family Medicine; Visit Provider Internal Medicine Rheumatology | DX: Z79.899 Other long term (current) drug therapy (principal); M06.041 Rheumatoid arthritis without rheumatoid factor, right hand; M06.042 Rheumatoid arthritis without rheumatoid factor, left hand; Z71.89 Other specified counseling; R97.21 Rising PSA following treatment for malignant neoplasm of prostate | CPT/HCPCS: 99214 ==

== ENCOUNTER 2024-02-23 10:52 | Oncology outpatient (recurring) (ONCR) | payer MEDICARE, SELFPAY ==
[2024-02-23 11:41] LABS: Basophils % 0.4 %; Eosinophils # 0.1 10^3/uL (0.0-0.8); Eosinophils % 0.9 %; Hematocrit 38.2 % (37-53); Lymphocytes # 0.7 10^3/uL (0.8-4.8); Lymphocytes % 8.4 %; Mean Corpuscular Hemoglobin 31.3 pg (27-33); Monocytes # 0.6 10^3/uL (0.2-0.9); Monocytes % 7.6 %; Neutrophils # 6.34 10^3/uL (1.8-7.7); Neutrophils % 82.1 %; Nucleated Red Blood Cells % 0 %; Platelet Count 173 10^3/cmm (157-399); Red Blood Count 4.02 10^6/uL (3.85-5.65); Red Cell Distribution Width 12.8 % (12.1-15.1); White Blood Count 7.73 10^3/uL (3.29-11.43)
[2024-02-23 12:03] LABS: Alanine Aminotransferase 10 U/L (0-41); Albumin Level 3.7 g/dL (3.5-5.2); Alkaline Phosphatase 69 U/L (40-130); Anion Gap 14.9 (5-19); Aspartate Amino Transferase 12 U/L (0-40); Blood Urea Nitrogen 29 mg/dL (8-23); Calcium 8.9 mg/dL (8.5-10.5); Carbon Dioxide 23 mmol/L (22-29); Chloride 103 mmol/L (98-107); Globulin 2.6 g/dL (1.3-4.6); Glucose 115 mg/dL (65-115); Osmolality Calculated 289 mOsm/kg (285-295); Potassium 4.9 mmol/L (3.5-5.1); Sodium 136 mmol/L (136-145); Total Bilirubin 0.2 mg/dL (0.15-1.2); Total Protein 6.3 g/dL (6.6-8.7); Uric Acid 7.8 mg/dL (3.4-7.0)
[2024-02-23 12:10] LABS: Testosterone Total 2.5 ng/dL (193-740)
[2024-02-23 12:12] LABS: Prostate Specific Antigen < 0.014 ng/mL (0-4)
[2024-02-23] MEDS: leuprolide 22.5 mg Kit IM (14:15)
== END 2024-02-28 23:59 | disposition home or self-care (01) ==
PROVIDERS: Internal Medicine Rheumatology; Nurse Practitioner Family; PCP Family Medicine; Visit Provider Internal Medicine Medical Oncology
DX: C61 Malignant neoplasm of prostate (principal); Z85.72 Personal history of non-Hodgkin lymphomas; R91.8 Other nonspecific abnormal finding of lung field; Z79.899 Other long term (current) drug therapy
CPT/HCPCS: 36415; 80053; 84153; 84403; 84550; 85025; 96401; 99214; J9217

== ENCOUNTER 2024-05-25 10:53 | Oncology outpatient (recurring) (ONCR) | payer MEDICARE, SELFPAY ==
[2024-05-25 11:10] LABS: Basophils % 0.7 %; Eosinophils # 0.1 10^3/uL (0.0-0.8); Hematocrit 39.1 % (37-53); Lymphocytes # 0.5 10^3/uL (0.8-4.8); Lymphocytes % 11.3 %; Mean Corpuscular Hemoglobin 31.3 pg (27-33); Mean Corpuscular Volume 94.9 fl (82-101); Mean Platelet Volume 8.9 fL (7.4-10.4); Monocytes # 0.4 10^3/uL (0.2-0.9); Monocytes % 8.6 %; Neutrophils # 3.39 10^3/uL (1.8-7.7); Neutrophils % 76.9 %; Nucleated Red Blood Cells % 0 %; Platelet Count 160 10^3/cmm (157-399); Red Blood Count 4.12 10^6/uL (3.85-5.65); Red Cell Distribution Width 12.3 % (12.1-15.1); White Blood Count 4.41 10^3/uL (3.29-11.43)
[2024-05-25 11:47] LABS: Alanine Aminotransferase 10 U/L (0-41); Albumin Level 3.9 g/dL (3.5-5.2); Alkaline Phosphatase 65 U/L (40-130); Anion Gap 14.6 (5-19); Aspartate Amino Transferase 12 U/L (0-40); Blood Urea Nitrogen 21 mg/dL (8-23); Carbon Dioxide 25 mmol/L (22-29); Chloride 105 mmol/L (98-107); Creatinine Clr Calc Pharmacy 85.4271; Globulin 2.5 g/dL (1.3-4.6); Glucose 157 mg/dL (65-115); Lactate Dehydrogenase 180 U/L (135-225); Osmolality Calculated 296 mOsm/kg (285-295); Potassium 4.6 mmol/L (3.5-5.1); Sodium 140 mmol/L (136-145); Testosterone Total 6.6 ng/dL (193-740); Total Bilirubin 0.4 mg/dL (0.15-1.2); Total Protein 6.4 g/dL (6.6-8.7)
[2024-05-25 11:52] LABS: Prostate Specific Antigen < 0.014 ng/mL (0-4)
[2024-05-25] MEDS: leuprolide 22.5 mg Kit IM (14:47)
== END 2024-05-29 23:59 | disposition home or self-care (01) ==
PROVIDERS: Internal Medicine; PCP Family Medicine; Visit Provider Internal Medicine Medical Oncology
DX: C61 Malignant neoplasm of prostate (principal); Z85.72 Personal history of non-Hodgkin lymphomas; R91.8 Other nonspecific abnormal finding of lung field; Z79.899 Other long term (current) drug therapy; Z51.12 Encounter for antineoplastic immunotherapy; Z79.818 Long term (current) use of other agents affecting estrogen receptors and estrogen levels
CPT/HCPCS: 36415; 80053; 83615; 84153; 84403; 85025; 96402; 99214; J9217

== ENCOUNTER → 2024-06-16 13:33 | Outpatient (BNVA) | payer MEDICARE, SELFPAY | PROVIDERS: PCP Family Medicine; Visit Provider Internal Medicine Cardiovascular Disease | DX: R07.9 Chest pain, unspecified (principal); I44.0 Atrioventricular block, first degree; E78.1 Pure hyperglyceridemia; I10 Essential (primary) hypertension; R00.1 Bradycardia, unspecified; Z85.72 Personal history of non-Hodgkin lymphomas; C61 Malignant neoplasm of prostate; J44.9 Chronic obstructive pulmonary disease, unspecified | CPT/HCPCS: 93005; 99214 ==

== ENCOUNTER 2024-07-01 06:43 | Outpatient (CLI) | payer MEDICARE, SELFPAY ==
[2024-07-01 06:46] VITALS: BMI 41.5
--- NOTE | 2024-07-01 06:50 | ECG_ITS ---
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 Interpretive Statements NAME OF STUDY: LEXISCAN SESTAMIBI STRESS TEST INDICATION: [CHEST PAIN; SHORTNESS OF BREATH] Procedure: At the baseline, the blood pressure was 121/76 mmHg with a heart rate of 92 bpm. The electrocardiogram showed normal sinus rhythm, normal axis with normal ST and T's. The Lexiscan was infused over a period of 20 seconds. A total of 0.4 mg of Lexiscan was infused. The stress phase was continued for a total of 5 minutes. Heart rate was at the end of stress phase was 102 bpm and a blood pressure of 137/68 mmHg. The EKG at the peak infusion revealed normal sinus rhythm with no significant ST-T wave changes. Sestamibi was injected 20 seconds after the Lexiscan infusion. Blood pressure at the end of recovery phase was 131/62 mmHg with a heart rate of 102 bpm. Conclusion: 1. Normal EKG response to Lexiscan infusion 2. No Lexiscan induced chest pain or cardiac arrhythmia. 3. Normal blood pressure and heart rate response. 4. Sestamibi/sestamibi perfusion scan pending; see separate report. Electronically Signed On 07-10-2024 21:04:14 CDT by Norbert Gonzalez M.D. [id number]
--- NOTE | 2024-07-01 06:50 | NMCV_ITS ---
NM koko perf SPECT r/s* [id number] Xavi Squires Age: 74 Gender: M : 1950 Exam Date: 07/01/2024 07:27 Ordering Phys: Bayron Salcedo MD ([email or web address]) Technologist: RAIMUNDO Ashton Exam Location: [facility] Indications: CP STRESS TEST Please see separate stress test report in [facility] for full findings IMAGE PROTOCOL Rest/Stress 1 Lexiscan Day Radiopharmaceutical Dose (mCi) Administration Site Administered by Rest: Tc-99m 10.8 IV RAIMUNDO Ashton Sestamibi Stress:Tc-99m 32.9 IV RAIMUNDO Ashton Sestamibi Rest: 01-Jul-2024 60 Discovery 630 Stress: 01-Jul-2024 30 Discovery 630 0.4mg Lexiscan. Supine position only as patient was unable to lay prone. SPECT RESULTS Technical Quality: Good Raw Data Analysis: Normal Image Corrections: No attenuation or motion correction applied Summed Stress Score: 3 Summed Rest Score: 0 Summed Difference Score: 3 PERFUSION FINDINGS Small area of reversible perfusion defect noted in the inferolateral wall. This is consistent with small area of ischemia seen left circumflex artery territory versus attenuation artifact. Clinical correlation is required. FUNCTIONAL RESULTS (calculated via Gated SPECT) Stress Image LV EF (%): 89 Stress EDV (mL):71 TID: 0.96 Stress ESV (mL):8 FUNCTIONAL FINDINGS: There is normal left ventricular systolic function. IMPRESSIONS 1. Small area of ischemia seen left circumflex artery territory versus attenuation artifact. Clinical correlation is required. Prone imaging could not be done. 2. LV systolic function is normal. Norbert Gonzalez MD (Electronically Signed) Final Date: 05 July 2024 17:22 S
[2024-07-01] MEDS: regadenoson 0.4 Mg/5 ml Syringe IVP (09:05)
[2024-07-01 09:28] VITALS: BP 126/72; PULSE 99
== END 2024-07-01 06:44 | disposition home or self-care (01) ==
PROVIDERS: PCP Family Medicine; Visit Provider Internal Medicine Cardiovascular Disease
DX: R94.39 Abnormal result of other cardiovascular function study (principal); R07.9 Chest pain, unspecified
CPT/HCPCS: 36415; 78452; 93017; 96374; A9500; J2785

== ENCOUNTER 2024-07-04 10:08 | Outpatient (CLI) | payer MEDICARE, SELFPAY ==
--- NOTE | 2024-07-04 10:26 | XR_ITS ---
WS: [id number] XR chest 2V* [id number] REASON FOR EXAM: PRE OP TESTING/COPD FINDINGS: There are no recent chest x-rays for comparison. Previous CT scans of 05/25/2023 and 10/30/2023 were re viewed. The patient has chronic reticular interstitial opacities in the lower lung garcia. There are several large calcified nodules and lymph nodes in both lungs. There is mild to moderate cardiomegaly and mild to moderate enlargement of the left left atrium. The lungs are not hyperexpanded and no acute pulmonary parenchymal or pleural abnormality is identifi ed. Significant degenerative spondylosis in the thoracic spine. XR/XR chest 2V* [id number] IMPRESSION: Chronic lung changes compatible with central lobar emphysema and bullous lung d isease. No hyperexpansion is identified. There is mild/moderate cardiomegaly and mild enlargement of the left atrium. No acute chest findings are identified.
[2024-07-04 11:04] LABS: Basophils % 0.5 %; Eosinophils # 0.2 10^3/uL (0.0-0.8); Eosinophils % 2.7 %; Hematocrit 39.2 % (37-53); Lymphocytes # 0.5 10^3/uL (0.8-4.8); Lymphocytes % 7.3 %; Mean Corpuscular HGB Conc 32.9 g/dL (30-55); Mean Corpuscular Hemoglobin 31.3 pg (27-33); Mean Corpuscular Volume 95.1 fl (82-101); Mean Platelet Volume 9.2 fL (7.4-10.4); Monocytes # 0.6 10^3/uL (0.2-0.9); Monocytes % 9.7 %; Neutrophils # 4.97 10^3/uL (1.8-7.7); Neutrophils % 78.8 %; Nucleated Red Blood Cells % 0 %; Platelet Count 213 10^3/cmm (157-399); Red Blood Count 4.12 10^6/uL (3.85-5.65); Red Cell Distribution Width 12.5 % (12.1-15.1)
[2024-07-04 11:23] LABS: Anion Gap 17.5 (5-19); Blood Urea Nitrogen 26 mg/dL (8-23); Calcium 9.3 mg/dL (8.5-10.5); Carbon Dioxide 22 mmol/L (22-29); Chloride 102 mmol/L (98-107); Glucose 163 mg/dL (65-115); Osmolality Calculated 292 mOsm/kg (285-295); Potassium 4.5 mmol/L (3.5-5.1); Sodium 137 mmol/L (136-145)
== END 2024-07-04 10:09 | disposition home or self-care (01) ==
PROVIDERS: PCP Family Medicine; Visit Provider Urology
DX: Z01.818 Encounter for other preprocedural examination (principal); I10 Essential (primary) hypertension; J43.2 Centrilobular emphysema; J43.9 Emphysema, unspecified; I51.7 Cardiomegaly; M46.94 Unspecified inflammatory spondylopathy, thoracic region
CPT/HCPCS: 36415; 71046; 80048; 85025

== ENCOUNTER 2024-08-17 13:14 | Oncology outpatient (recurring) (ONCR) | payer MEDICARE, SELFPAY | END 2024-08-29 23:59 | disposition home or self-care (01) | PROVIDERS: PCP Family Medicine; Visit Provider Internal Medicine Medical Oncology | DX: C61 Malignant neoplasm of prostate (principal); Z85.72 Personal history of non-Hodgkin lymphomas; R91.8 Other nonspecific abnormal finding of lung field; Z79.899 Other long term (current) drug therapy | CPT/HCPCS: 99214 ==

== ENCOUNTER → 2024-09-22 10:34 | Outpatient (BNVA) | payer MEDICARE, SELFPAY | PROVIDERS: PCP Family Medicine; Visit Provider Internal Medicine Rheumatology | DX: M06.041 Rheumatoid arthritis without rheumatoid factor, right hand (principal); M06.042 Rheumatoid arthritis without rheumatoid factor, left hand; Z79.899 Other long term (current) drug therapy; Z71.89 Other specified counseling; R97.21 Rising PSA following treatment for malignant neoplasm of prostate; M25.521 Pain in right elbow | CPT/HCPCS: 36415; 84550; 99214 ==

== ENCOUNTER 2024-10-06 12:23 | Outpatient (CLI) | payer MEDICARE, SELFPAY ==
--- NOTE | 2024-10-06 12:45 | US_ITS ---
WS: [email or web address] Ultrasound soft tissue INDICATION: RIGHT arm lump TECHNIQUE: Ultrasound soft tissue area of concern FINDINGS: Ultrasound soft tissue area of concern RIGHT arm. Normal underlying subcutaneous soft tissu es. No suspicious cystic or solid lesions. No suspicious findings in the area of concern. US/US soft tissue/extremity [id number] IMPRESSION: No acute findings
== END 2024-10-06 12:24 | disposition home or self-care (01) ==
PROVIDERS: PCP Family Medicine; Visit Provider Internal Medicine Rheumatology
DX: M06.041 Rheumatoid arthritis without rheumatoid factor, right hand (principal); M06.042 Rheumatoid arthritis without rheumatoid factor, left hand; M25.529 Pain in unspecified elbow
CPT/HCPCS: 76882

== ENCOUNTER 2024-10-21 10:31 | Outpatient (CLI) | payer MEDICARE, SELFPAY ==
[2024-10-21 11:02] LABS: Uric Acid 5.1 mg/dL (3.4-7.0)
== END 2024-10-21 10:32 | disposition home or self-care (01) ==
LOC: LAB 10:33
PROVIDERS: PCP Family Medicine; Visit Provider Internal Medicine Rheumatology
DX: Z79.899 Other long term (current) drug therapy (principal)
CPT/HCPCS: 36415; 84550

== ENCOUNTER 2024-11-16 10:22 | Oncology outpatient (recurring) (ONCR) | payer MEDICARE, SELFPAY ==
[2024-11-16 10:59] LABS: Basophils % 0.5 %; Eosinophils # 0.1 10^3/uL (0.0-0.8); Eosinophils % 2.3 %; Hematocrit 37.9 % (37-53); Lymphocytes # 0.5 10^3/uL (0.8-4.8); Lymphocytes % 8.6 %; Mean Corpuscular HGB Conc 33.2 g/dL (30-55); Mean Corpuscular Hemoglobin 31.8 pg (27-33); Mean Corpuscular Volume 95.7 fl (82-101); Monocytes # 0.6 10^3/uL (0.2-0.9); Neutrophils # 4.44 10^3/uL (1.8-7.7); Neutrophils % 77.6 %; Nucleated Red Blood Cells % 0 %; Platelet Count 217 10^3/cmm (157-399); Red Blood Count 3.96 10^6/uL (3.85-5.65); White Blood Count 5.72 10^3/uL (3.29-11.43)
[2024-11-16 11:23] LABS: Alanine Aminotransferase 10 U/L (0-41); Albumin Level 3.8 g/dL (3.5-5.2); Alkaline Phosphatase 58 U/L (40-130); Anion Gap 18.3 (5-19); Aspartate Amino Transferase 13 U/L (0-40); Blood Urea Nitrogen 20 mg/dL (8-23); Calcium 9.2 mg/dL (8.5-10.5); Carbon Dioxide 22 mmol/L (22-29); Chloride 100 mmol/L (98-107); Creatinine Clr Calc Pharmacy 60.6759; Globulin 2.7 g/dL (1.3-4.6); Glucose 198 mg/dL (65-115); Osmolality Calculated 290 mOsm/kg (285-295); Potassium 4.3 mmol/L (3.5-5.1); Sodium 136 mmol/L (136-145); Testosterone Total 9.2 ng/dL (193-740); Total Bilirubin 0.2 mg/dL (0.15-1.2); Total Protein 6.5 g/dL (6.6-8.7)
[2024-11-16 11:24] LABS: Prostate Specific Antigen < 0.014 ng/mL (0-4)
== END 2024-11-29 23:59 | disposition home or self-care (01) ==
PROVIDERS: Nurse Practitioner Family; PCP Family Medicine; Visit Provider Internal Medicine Medical Oncology
DX: C61 Malignant neoplasm of prostate (principal); Z85.72 Personal history of non-Hodgkin lymphomas; R91.8 Other nonspecific abnormal finding of lung field; Z79.899 Other long term (current) drug therapy
CPT/HCPCS: 36415; 80053; 84153; 84403; 85025; 99213

== ENCOUNTER → 2025-01-06 09:08 | Outpatient (BNVA) | payer MEDICARE, SELFPAY | PROVIDERS: PCP Family Medicine; Visit Provider Nurse Practitioner Family | DX: I10 Essential (primary) hypertension (principal); R00.2 Palpitations; R06.09 Other forms of dyspnea; E78.5 Hyperlipidemia, unspecified; J44.9 Chronic obstructive pulmonary disease, unspecified | CPT/HCPCS: 99214 ==

== ENCOUNTER → 2025-01-23 10:57 | Outpatient (BNVA) | payer MEDICARE, SELFPAY | PROVIDERS: PCP Family Medicine; Visit Provider Internal Medicine Rheumatology | DX: M06.041 Rheumatoid arthritis without rheumatoid factor, right hand (principal); M06.042 Rheumatoid arthritis without rheumatoid factor, left hand; Z79.899 Other long term (current) drug therapy; Z71.89 Other specified counseling; R97.21 Rising PSA following treatment for malignant neoplasm of prostate | CPT/HCPCS: 99214 ==

== ENCOUNTER → 2025-02-02 14:46 | Outpatient (BNVA) | payer MEDICARE, SELFPAY | PROVIDERS: PCP Family Medicine; Visit Provider Internal Medicine Rheumatology | DX: Z71.89 Other specified counseling (principal); M06.9 Rheumatoid arthritis, unspecified | CPT/HCPCS: 20600; 99214; J1010; J9999 ==

== ENCOUNTER 2025-02-08 10:23 | Oncology outpatient (recurring) (ONCR) | payer MEDICARE, SELFPAY ==
[2025-02-08 10:50] LABS: Basophils % 0.3 %; Eosinophils # 0.1 10^3/uL (0.0-0.8); Eosinophils % 1.2 %; Hematocrit 37.5 % (37-53); Lymphocytes # 0.5 10^3/uL (0.8-4.8); Lymphocytes % 8.2 %; Mean Corpuscular HGB Conc 32.3 g/dL (30-55); Mean Corpuscular Hemoglobin 31.1 pg (27-33); Mean Corpuscular Volume 96.4 fl (82-101); Mean Platelet Volume 9.1 fL (7.4-10.4); Monocytes # 0.4 10^3/uL (0.2-0.9); Monocytes % 7.3 %; Neutrophils # 4.72 10^3/uL (1.8-7.7); Neutrophils % 82.5 %; Nucleated Red Blood Cells % 0 %; Platelet Count 173 10^3/cmm (157-399); Red Blood Count 3.89 10^6/uL (3.85-5.65); Red Cell Distribution Width 13.1 % (12.1-15.1); White Blood Count 5.73 10^3/uL (3.29-11.43)
[2025-02-08 11:19] LABS: Alanine Aminotransferase < 5 U/L (0-41); Albumin Level 3.8 g/dL (3.5-5.2); Alkaline Phosphatase 57 U/L (40-130); Anion Gap 16.3 (5-19); Aspartate Amino Transferase 11 U/L (0-40); Blood Urea Nitrogen 21 mg/dL (8-23); Calcium 9.1 mg/dL (8.5-10.5); Carbon Dioxide 22 mmol/L (22-29); Chloride 105 mmol/L (98-107); Globulin 2.7 g/dL (1.3-4.6); Glucose 187 mg/dL (65-115); Lactate Dehydrogenase 188 U/L (135-225); Osmolality Calculated 296 mOsm/kg (285-295); Potassium 4.3 mmol/L (3.5-5.1); Sodium 139 mmol/L (136-145); Testosterone Total 5.1 ng/dL (193-740); Total Bilirubin 0.3 mg/dL (0.15-1.2); Total Protein 6.5 g/dL (6.6-8.7)
[2025-02-08 11:30] LABS: Prostate Specific Antigen < 0.014 ng/mL (0-4)
== END 2025-02-27 23:59 | disposition home or self-care (01) ==
PROVIDERS: PCP Family Medicine; Visit Provider Internal Medicine
DX: C61 Malignant neoplasm of prostate (principal); C79.51 Secondary malignant neoplasm of bone; Z85.72 Personal history of non-Hodgkin lymphomas; R91.8 Other nonspecific abnormal finding of lung field; M06.041 Rheumatoid arthritis without rheumatoid factor, right hand; M06.042 Rheumatoid arthritis without rheumatoid factor, left hand; Z79.899 Other long term (current) drug therapy; Z90.79 Acquired absence of other genital organ(s); Z92.3 Personal history of irradiation; Z79.52 Long term (current) use of systemic steroids
CPT/HCPCS: 36415; 80053; 83615; 84153; 84403; 85025; 99213

== ENCOUNTER 2025-03-02 10:30 | Oncology outpatient (recurring) (ONCR) | payer MEDICARE, SELFPAY ==
--- NOTE | 2025-02-28 10:00 | CTR_ITS ---
PROCEDURE INFORMATION: Exam: CT Chest With Contrast; Diagnostic Exam date and time: 02/28/2025 10:06 AM Age: 74 years old Clinical indication: Condition or disease; Lung condition and disease; Pulmonary nodule, solitary; Primary cancer: Prostate, parotid; Prior surgery; Surgery date: 6+ months; Surgery type: RT lung, bilat shoulders; Additional info: Pulmonsry nodules, Dr. Thompson would like this scan done on 02/28/25 as visit is on TECHNIQUE: Imaging protocol: Diagnostic computed tomography of the chest with contrast. Radiation optimization: All CT scans at this facility use at least one of these dose optimization techniques: automated exposure control; mA and/or kV adjustment per patient size (includes targeted exams where dose is matched to clinical indication); or iterative reconstruction. Contrast material: OMNI 350; Contrast volume: 100 ml; Contrast route: INTRAVENOUS (IV); COMPARISON: CT chest abdpel w/*[id number] 10/30/2023 12:26 PM RADIATION DOSE METRICS: Total DLP (mGy-cm): 601.8 FINDINGS: Lungs: Multiple calcified pulmonary nodules are again seen without change. 1.3 cm noncalcified pulmonary nodule at the right apex without change. 1.4 cm noncalcified pulmonary nodule in the right upper lobe anteriorly without change. Other noncalcified pulmonary nodules are also stable. Subsegmental consolidation in the left upper lobe is new. Pleural spaces: Unremarkable. No pneumothorax. No pleural effusion. Heart: Unremarkable. No cardiomegaly. No pericardial effusion. Lymph nodes: Right paratracheal lymph node measures 1.2 cm without change. Subcarinal lymph node measures 1.3 cm without change. All of these are short axis measurements. Vasculature: Unremarkable. No aortic aneurysm. Bones/joints: Unremarkable. No acute fracture. Soft tissues: Unremarkable. CT/CT chest w con* [id number] IMPRESSION: 1. Stable pulmonary nodules bilaterally both calcified and noncalcified. 2. Stable mediastinal lymph nodes.
[2025-02-28] MEDS: iohexol 350 mg/mL 500 mL Btl (per mL) IV (10:18)
[2025-03-02 10:34] LABS: Basophils % 0.5 %; Eosinophils # 0.1 10^3/uL (0.0-0.8); Eosinophils % 1.5 %; Hematocrit 36.5 % (37-53); Lymphocytes # 0.5 10^3/uL (0.8-4.8); Lymphocytes % 7.5 %; Mean Corpuscular HGB Conc 32.3 g/dL (30-55); Mean Corpuscular Hemoglobin 31.6 pg (27-33); Mean Corpuscular Volume 97.9 fl (82-101); Mean Platelet Volume 9.2 fL (7.4-10.4); Monocytes # 0.5 10^3/uL (0.2-0.9); Monocytes % 8.2 %; Neutrophils # 4.88 10^3/uL (1.8-7.7); Neutrophils % 81.6 %; Nucleated Red Blood Cells % 0 %; Platelet Count 181 10^3/cmm (157-399); Red Blood Count 3.73 10^6/uL (3.85-5.65); Red Cell Distribution Width 13.2 % (12.1-15.1); White Blood Count 5.98 10^3/uL (3.29-11.43)
[2025-03-02 10:52] LABS: Alanine Aminotransferase 12 U/L (0-41); Albumin Level 3.8 g/dL (3.5-5.2); Alkaline Phosphatase 56 U/L (40-130); Anion Gap 17.6 (5-19); Aspartate Amino Transferase 13 U/L (0-40); Blood Urea Nitrogen 22 mg/dL (8-23); Calcium 9.2 mg/dL (8.5-10.5); Carbon Dioxide 20 mmol/L (22-29); Chloride 102 mmol/L (98-107); Globulin 2.4 g/dL (1.3-4.6); Glucose 172 mg/dL (65-115); Lactate Dehydrogenase 171 U/L (135-225); Osmolality Calculated 287 mOsm/kg (285-295); Potassium 4.6 mmol/L (3.5-5.1); Sodium 135 mmol/L (136-145); Total Bilirubin 0.2 mg/dL (0.15-1.2); Total Protein 6.2 g/dL (6.6-8.7)
== END 2025-03-29 23:59 | disposition home or self-care (01) ==
PROVIDERS: PCP Family Medicine; Visit Provider Internal Medicine
DX: Z53.9 Procedure and treatment not carried out, unspecified reason (principal); C61 Malignant neoplasm of prostate; C79.51 Secondary malignant neoplasm of bone; R91.8 Other nonspecific abnormal finding of lung field; Z85.72 Personal history of non-Hodgkin lymphomas; Z90.79 Acquired absence of other genital organ(s); Z79.899 Other long term (current) drug therapy
CPT/HCPCS: 36415; 71260; 80053; 83615; 85025; 99213

== ENCOUNTER 2025-05-18 06:22 | Inpatient (IN) | payer MEDICARE, SELFPAY ==
[2025-05-18] VITALS (36 sets, daily range): BP systolic 115–188; BP diastolic 64–94; PULSE 60–87; RESP 14–33; TEMP 36.3–37.1; O2SAT 94–98; BMI 42.4
--- NOTE | 2025-05-18 06:27 | ECG_ITS ---
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 Measurements Intervals [place] Rate: 65 P: 80 MA: 234 QRS: 5 QRSD: 80 T: 34 QT: 377 QTc: 395 Interpretive Statements SINUS RHYTHM WITH FIRST DEGREE AV BLOCK MODERATE ST DEPRESSION [0.05+ mV ST DEPRESSION, consider ischemia. Compared to ECG 06/16/2024 13:38:24 ST (T wave) deviation now present Sinus arrhythmia no longer present Electronically Signed On 05-18-2025 08:16:34 CDT by Deborah Mendoza M.D. [id number] [id number]
--- NOTE | 2025-05-18 06:27 | XR_ITS ---
WS: [id number] Portable AP upright chest, 05/18/2025 Clinical Data: chest pain Comparison: Two-view chest, 07/04/2024 Findings: There is a patchy opacity in the left lower lobe unchanged. No nodules, masses or effusions are seen. The heart is slightly enlarged. The pulmonary vascularity is not increased. No pneumonia or pneumothorax is seen. The aortic arch and descending thoracic aorta show mild tortuosity. There are monitor leads on the chest wall. XR/XR chest 1V portable [id number] Impression: 1. Patchy opacity in left lower lobe unchanged. 2. Cardiomegaly and atherosclerosis.
[2025-05-18] MEDS: aspirin 81 mg Chew Tablet 324 MG PO (06:33)
--- NOTE | 2025-05-18 06:36 | W.ED.CHESTPA ---
HPI - Chest Pain General: Chief Complaint: Chest Pain Stated Complaint: cp Time Seen by Provider: 05/18/25 06:27 History of Present Illness: 75-year-old male presents emergency room with complaints of chest pain that began approximately 3 to 4 days ago. Patient states worse with exertion better with rest. He noted when he walked in from the parking lot or precipitated chest discomfort radiates into both arms. Denies any nausea or vomiting with it no diaphoresis. No previous history of coronary artery disease arrhythmias patient states about 6 to 8 years ago he had an angiogram which he was told was normal Associated symptoms: Deny abdominal pain, dyspnea or fever(s) Related Data Home Medications ?Medication ?Instructions ?Recorded ?Confirmed loratadine 10 mg tablet (Claritin) 10 mg PO DAILY PRN allergies 04/20/23 05/18/25 acetaminophen 500 mg capsule 1,000 mg PO .[id number] 01/23/25 05/18/25 furosemide 20 mg tablet 40 mg PO DAILY PRN shortness of 05/18/25 05/18/25 breath or swelling losartan 50 mg tablet 50 mg PO BEDTIME 05/18/25 05/18/25 metformin 500 mg tablet,extended 500 mg PO DAILY 05/18/25 05/18/25 release 24 hr Previous Rx's ?Medication ?Instructions ?Recorded diclofenac sodium 1 % topical gel 4 g topical QID #100 grams 09/22/24 (Arthritis Pain (diclofenac)) metoprolol tartrate 50 mg tablet See Rx Instructions .Route 10/17/24 .COMPLEX #135 tabs potassium chloride 10 mEq See Rx Instructions .Route 11/15/24 capsule,extended release .COMPLEX #180 caps amlodipine 10 mg tablet 10 mg PO DAILY #90 tabs 11/17/24 allopurinol 100 mg tablet 100 mg PO BID #60 tabs 01/23/25 omeprazole 20 mg capsule,delayed 20 mg PO BID #180 caps 01/23/25 release prednisone 20 mg tablet See Rx Instructions PO .COMPLEX 01/23/25 PRN joint pain flare #30 tabs prednisone 5 mg tablet 5 mg PO DAILY #90 tabs 01/23/25 apalutamide 60 mg tablet 240 mg (4 x 60 mg) PO DAILY #120 03/07/25 tabs Allergies Allergy/AdvReac Type Severity Reaction Status Date / Time cephalexin (From Keflex) Allergy UNKNOWN Verified 05/18/25 06:27 penicillin G Allergy UNKNOWN Verified 05/18/25 06:27 Aywijjk-QZP-TjA Reductase Allergy Unknown Verified 05/18/25 06:27 Inhibitor (Zelwzzi-Php-Hgx Reductase Inhibitor) Sulfa (Sulfonamide Allergy UNKNOWN Verified 05/18/25 06:27 Antibiotics) Review of Systems Const: Denies: fever(s) or chills Card: Denies: chest pain Resp: Denies: dyspnea GI: Denies: abdominal pain : Denies: dysuria, urinary frequency or urinary urgency Musc: Denies: neck pain or back pain Skin/Breast: Denies: rash PFSH ED PFSH: Medical History History of osteonecrosis Bilateral femoral head osteonecrosis Hx of malignant lymphoma History of MALT lymphoma GERD (gastroesophageal reflux disease) Degenerative arthritis Benign essential HTN COPD (chronic obstructive pulmonary disease) Hypertriglyceridemia Fatigue Hx of skin cancer, basal cell Seronegative rheumatoid arthritis of both hands BPH loc w urin obs/LUTS High risk medication use Prostate cancer History of rectal fissure Chronic prostatitis Family history of prostate cancer Surgical History H/O prostate biopsy History of rectal surgery History of total right knee replacement Hx of vasectomy History of prostate surgery History of detached retina repair RIGHT EYE History of appendectomy History of lung biopsy (2001) Resection of right upper lobe pulmonary nodule History of shoulder surgery LEFT DISTAL CLAVICLE RESECTION ACROMIOPLASTY AND EXPLORATION OF ROTATOR CUFF History of parotid gland removal (2001) History of knee surgery Family History Mother , AT AGE 76 Dementia ALZHEIMERS Father , AT AGE 75 ESOPHAGEAL CANCER PROSTATE CANCER Cancer Grandmother CAD (coronary artery disease) Stroke Family/Other Lung disease Denies family history of Rheumatoid arthritis Diabetes Lupus Clotting disorder Chronic kidney disease (CKD) Suicide Anesthesia complication Bleeding disorder Social History Smoking and tobacco/nicotine status: never used tobacco/nicotine Alcohol intake: never Substance/Drug Use: never Adopted: No Caregiver/support person: No Lives independently: No Household members: spouse Marital status: Current occupational status: retired Current gender identity: Male Physical Exam Const: COMMON NORMALS: no acute distress GENERAL APPEARANCE: cooperative and comfortable ORIENTATION/CONSCIOUSNESS: Yes awake, Yes oriented to person, Yes oriented to place and Yes oriented to time HENMT: COMMON NORMALS: normocephalic, atraumatic and hearing grossly normal bilaterally HEAD & SCALP: normocephalic and atraumatic Resp: COMMON NORMALS: normal respiratory effort, No retractions, No use of accessory muscles and clear to auscultation bilaterally AUSCULTATION: clear to auscultation bilaterally Cardio: COMMON NORMALS: regular rate, regular rhythm and No murmurs present (Cardio) RATE: regular rate RHYTHM: regular rhythm GI: COMMON NORMALS: Soft to palpation and No hepatosplenomegaly present AUSCULTATION: Yes normoactive bowel sounds PALPATION: Yes Soft to palpation, No Tenderness to palpation present (GI), No Guarding due to palpation present (GI) and Yes No hepatosplenomegaly present Extremity: COMMON NORMALS: normal to inspection, capillary refill normal, no clubbing, cyanosis or edema, no calf tenderness and no pedal edema Neuro: SENSORIUM/ORIENTATION: Yes oriented to person, Yes oriented to place and Yes oriented to time Skin: COMMON NORMALS: no rashes or lesions noted GENERAL SKIN EXAM: no rashes or lesions noted Course Vital Signs: Vital signs: Vital Signs Temperature 98.6 F 05/18/25 06:27 Pulse Rate 60 05/18/25 09:00 Respiratory Rate 18 05/18/25 06:27 Blood Pressure 141/81 05/18/25 09:00 Pulse Oximetry 95 05/18/25 09:00 Oxygen Delivery Me thod Room Air 05/18/25 09:00 MDM - Chest Pain Medical Decision Making Patient has a mild elevation of troponin of +5 EKG does not show any acute changes reviewed his old records see medical record section below he had 2 stress test in the last 3 years which showed a positive results they have been managing medically he had an angiogram done in 2016 that was read as negative with no coronary artery disease. He has had more episodes of chest pain he tells me since arriving in the emergency room just had not alerted us his EKG did not show any acute changes. Discussed with the hospitalist and with cardiology. Will admit to hospitalist service consult cardiology. Patient has been started on heparin and has received topical nitro received aspirin earlier. Medical Records Lexiscan sestamibi stress test July 01, 2024 showed a small area of ischemia in the distribution of the left circumflex artery. Previous stress testing done May 2022 showed a small area of reversible defect in the inferior lateral region also consistent with ischemia in the left circumflex distribution. Ejection fraction. And both test listed in the upper 80 percentile. Retouching Operator report 11/05/2016 Procedure Type Diagnostic procedure Conclusions Procedure Summary Chest discomfort somewhat typical of angina. Several risk factors. Treadmill stress testing unremarkable. Despite this he had the persistence of chest pain. Angiography is normal with normal ejection fraction Recommendations Optimize medical management is the recommended treatment at this time. Look for non-cardiac causes for chest pain. Signatures Angiographic Findings Cardiac Arteries and Lesion Findings LMCA: Normal. LAD: Normal. LCx: Normal. RCA: Normal. Procedure Data Procedure Date Date: 11/05/2016Start: 07:00End: 07:33 Lab Data 05/18/25 06:40 05/18/25 06:40 Radiology Impressions Chest X-Ray 05/18/25 06:27 Impression: 1. Patchy opacity in left lower lobe unchanged. 2. Cardiomegaly and atherosclerosis. Laboratory Results WBC 5.60 10^3/uL (3.29-11.43) 05/18/25 06:40 RBC 3.61 10^6/uL (3.85-5.65) L 05/18/25 06:40 Hgb 11.50 g/dL (11.27-16.99) 05/18/25 06:40 Hct 34.6 % (37-53) L 05/18/25 06:40 MCV 95.8 fl (82-101) 05/18/25 06:40 MCH 31.9 pg (27-33) 05/18/25 06:40 MCHC 33.2 g/dL (30-55) 05/18/25 06:40 RDW 13.0 % (12.1-15.1) 05/18/25 06:40 Plt Count 201 10^3/cmm (157-399) 05/18/25 06:40 MPV 9.5 fL (7.4-10.4) 05/18/25 06:40 Neut % (Auto) 72.4 % 05/18/25 06:40 Lymph % (Auto) 13.8 % 05/18/25 06:40 Bollinger % (Auto) 9.5 % 05/18/25 06:40 Eos % (Auto) 2.1 % 05/18/25 06:40 Baso % (Auto) 0.4 % 05/18/25 06:40 Neut # (Auto) 4.06 10^3/uL (1.8-7.7) 05/18/25 06:40 Lymph # (Auto) 0.8 10^3/uL (0.8-4.8) 05/18/25 06:40 Bollinger # (Auto) 0.5 10^3/uL (0.2-0.9) 05/18/25 06:40 Eos # (Auto) 0.1 10^3/uL (0.0-0.8) 05/18/25 06:40 Baso # (Auto) 0.0 10^3/uL (0.0-0.1) 05/18/25 06:40 Nucleated RBC % (auto) 0 % 05/18/25 06:40 Nucleated RBCs # 0.0 /100WBC 05/18/25 06:40 Sodium 139 mmol/L (136-145) 05/18/25 06:40 Potassium 4.2 mmol/L (3.5-5.1) 05/18/25 06:40 Chloride 102 mmol/L (98-107) 05/18/25 06:40 Carbon Dioxide 23 mmol/L (22-29) 05/18/25 06:40 Anion Gap 18.2 (5-19) 05/18/25 06:40 BUN 20 mg/dL (8-23) 05/18/25 06:40 Creatinine 1.0 mg/dL (0.7-1.2) 05/18/25 06:40 GFR Calculation Not Reportable 05/18/25 06:40 Glucose 111 mg/dL (65-115) 05/18/25 06:40 Calculated Osmolality 291 mOsm/kg (285-295) 05/18/25 06:40 Calcium 9.1 mg/dL (8.5-10.5) 05/18/25 06:40 Total Bilirubin 0.2 mg/dL (0.15-1.2) 05/18/25 06:40 AST 14 U/L (0-40) 05/18/25 06:40 ALT 8 U/L (0-41) 05/18/25 06:40 Alkaline Phosphatase 72 U/L (40-130) 05/18/25 06:40 Troponin T Baseline 41 ng/L (0-15) H 05/18/25 06:40 Troponin T 120 Minute 46.45 ng/L (0-15) H 05/18/25 08:30 Delta Troponin T 5.45 ABS# (0-10) 05/18/25 08:30 Total Protein 6.3 g/dL (6.6-8.7) L 05/18/25 06:40 Albumin 3.5 g/dL (3.5-5.2) 05/18/25 06:40 Globulin 2.8 g/dL (1.3-4.6) 05/18/25 06:40 All radiology interpretation(s) finalized by discharge EKG Data EKG 1: Interpretation: Initial EKG has significant artifact in the limb leads so was asked to be repeated. First EKG May 18, 2025 0 6:47 AM ventricular rate of 62 AL interval of 236 QTc 399 inverted T waves in lead III very low voltage in 3 and aVF no acute ST elevation or depression noted. Discharge Plan Discharge Patient Disposition: Admitted As Inpatient Clinical Impression: Angina of effort, Positive cardiac stress test, Diabetes mellitus, Hx of malignant lymphoma, BPH loc w urin obs/LUTS, Prostate cancer, Rheumatoid arthritis, COPD (chronic obstructive pulmonary disease), Benign essential HTN Condition: Stable Coding Level of Care Code ED Mobile Solutions Architect for [facility]
[2025-05-18 06:50] LABS: Basophils % 0.4 %; Eosinophils # 0.1 10^3/uL (0.0-0.8); Eosinophils % 2.1 %; Hematocrit 34.6 % (37-53); Lymphocytes # 0.8 10^3/uL (0.8-4.8); Lymphocytes % 13.8 %; Mean Corpuscular HGB Conc 33.2 g/dL (30-55); Mean Corpuscular Hemoglobin 31.9 pg (27-33); Mean Corpuscular Volume 95.8 fl (82-101); Mean Platelet Volume 9.5 fL (7.4-10.4); Monocytes # 0.5 10^3/uL (0.2-0.9); Monocytes % 9.5 %; Neutrophils # 4.06 10^3/uL (1.8-7.7); Neutrophils % 72.4 %; Nucleated Red Blood Cells % 0 %; Platelet Count 201 10^3/cmm (157-399); Red Blood Count 3.61 10^6/uL (3.85-5.65)
[2025-05-18 07:08] LABS: Troponin(5th) Baseline 41 ng/L (0-15)
[2025-05-18 07:14] LABS: Alanine Aminotransferase 8 U/L (0-41); Albumin Level 3.5 g/dL (3.5-5.2); Alkaline Phosphatase 72 U/L (40-130); Aspartate Amino Transferase 14 U/L (0-40); Blood Urea Nitrogen 20 mg/dL (8-23); Calcium 9.1 mg/dL (8.5-10.5); Carbon Dioxide 23 mmol/L (22-29); Chloride 102 mmol/L (98-107); Creatinine Clr Calc Pharmacy 76.2524; Globulin 2.8 g/dL (1.3-4.6); Glucose 111 mg/dL (65-115); Osmolality Calculated 291 mOsm/kg (285-295); Sodium 139 mmol/L (136-145); Total Bilirubin 0.2 mg/dL (0.15-1.2); Total Protein 6.3 g/dL (6.6-8.7)
[2025-05-18 07:17] LABS: Anion Gap 18.2 (5-19); Potassium 4.2 mmol/L (3.5-5.1)
--- NOTE | 2025-05-18 08:36 | ECG_ITS ---
[facility]: 2025-05-18 Pat Name: Xavi Squires Department: Room: Gender: Male Internal Medicine Hospitalist: : 1950 Requested By: John Garcia Order Number: [id number] Rossana MD: Deborah Mendoza M.D. Measurements Intervals [place] Rate: 61 P: 74 DE: 229 QRS: -9 QRSD: 80 T: 17 QT: 399 QTc: 404 Interpretive Statements SINUS RHYTHM WITH FIRST DEGREE AV BLOCK Compared to ECG 05/18/2025 06:25:46 ST (T wave) deviation no longer present Possible ischemia no longer present Electronically Signed On 05-18-2025 14:01:20 CDT by Deborah Mendoza M.D. [id number]
[2025-05-18 09:09] LABS: Troponin 5 2HR 46.45 ng/L (0-15); Troponin 5 2HR Delta 5.45 ABS# (0-10)
[2025-05-18] MEDS: heparin 5,000 unit/mL INJ 1 mL IVP (11:03)
[2025-05-18] MEDS: heparin drip 25,000 UNIT/500 ML PREMIX 32 UNIT IV (11:04)
[2025-05-18] MEDS: nitroglycerin 1 gm/inch oint Pkt 0.5 INCH TOPICAL (11:09)
[2025-05-18 11:32] LABS: Partial Thromboplastin Time 25.4 SECONDS (23.9-36.7)
--- NOTE | 2025-05-18 11:45 | PM.HP ---
Providers/Chief Complaint Primary Care Provider: Yaakov Rolle MD Chief Complaint: cp History of Present Illness Xavi Squires is a 75 year old male with a history of abnormal stress tests (2021 and 2023), suspected coronary artery disease (in the distribution of the left circumflex), prostate cancer (treated, previously metastatic to bone, currently on apalutamide), MALT lymphoma, seronegative rheumatoid arthritis, COPD, hyperlipidemia, and GERD. The patient presented to the emergency department due to chest pain that started about three to four days ago. The pain is intermittent, worse with exertion, improves with rest, radiates down both arms, and is described as a pressure in the center of the chest. The patient denies recent worsening of chronic shortness of breath, cough (except for a resolved head cold last week), hemoptysis, leg swelling beyond baseline, nausea, vomiting, diarrhea, GI or bleeding, dysuria, or rashes. The patient reports chronic mild leg swelling, for which they take furosemide. There is no history of smoking, alcohol, or recreational drug use. The patient is not on oxygen at home and does not have sleep apnea. The patient follows with oncology for prostate cancer and for lung nodules (chronic opacity in the left lower lobe). The patient reports intolerance to statins due to leg pain. Family history is negative for heart disease. The patient has discussed code status and prefers not to have prolonged life support if not improving, but is open to resuscitation if needed for a reversible event. Review of Systems Const: Denies: fever(s), chills, body aches or malaise ENMT: Denies: throat pain Card: Reports: chest pain and swelling of feet/ankles; Denies: edema, pre-syncope or dyspnea on exertion Resp: Denies: dyspnea, productive cough, change in phlegm color or hemoptysis GI: Denies: abdominal pain, nausea, vomiting, diarrhea, constipation, hematochezia or melena : Denies: flank pain, difficulty urinating, urinary frequency or hematuria Musc: Denies: back pain, joint swelling or joint redness Skin/Breast: Denies: rash or new lesions Neuro: Denies: headache(s) or confusion Medications/Allergies Home Medications ?Medication ?Instructions ?Recorded ?Confirmed ?Last Taken ?Type loratadine 10 mg tablet (Claritin) 10 mg PO DAILY PRN allergies 04/20/23 05/18/25 05/17/25 History diclofenac sodium 1 % topical gel 4 g topical QID #100 grams 09/22/24 05/18/25 Unknown Rx (Arthritis Pain (diclofenac)) metoprolol tartrate 50 mg tablet See Rx Instructions .Route 10/17/24 05/18/25 05/17/25 Rx .COMPLEX #135 tabs potassium chloride 10 mEq See Rx Instructions .Route 11/15/24 05/18/25 05/17/25 Rx capsule,extended release .COMPLEX #180 caps amlodipine 10 mg tablet 10 mg PO DAILY #90 tabs 11/17/24 05/18/25 05/17/25 Rx acetaminophen 500 mg capsule 1,000 mg PO .[id number] 01/23/25 05/18/25 Unknown History allopurinol 100 mg tablet 100 mg PO BID #60 tabs 01/23/25 05/18/25 05/17/25 Rx omeprazole 20 mg capsule,delayed 20 mg PO BID #180 caps 01/23/25 05/18/25 05/17/25 Rx release prednisone 20 mg tablet See Rx Instructions PO .COMPLEX 01/23/25 05/18/25 Unknown Rx PRN joint pain flare #30 tabs prednisone 5 mg tablet 5 mg PO DAILY #90 tabs 01/23/25 05/18/25 05/17/25 Rx apalutamide 60 mg tablet 240 mg (4 x 60 mg) PO DAILY #120 03/07/25 05/18/25 05/17/25 Rx tabs furosemide 20 mg tablet 40 mg PO DAILY PRN shortness of 05/18/25 05/18/25 05/17/25 History breath or swelling losartan 50 mg tablet 50 mg PO BEDTIME 05/18/25 05/18/25 05/17/25 20:00 History metformin 500 mg tablet,extended 500 mg PO DAILY 05/18/25 05/18/25 05/17/25 History release 24 hr Allergies Allergy/AdvReac Type Severity Reaction Status Date / Time cephalexin (From Keflex) Allergy UNKNOWN Verified 05/18/25 06:27 penicillin G Allergy UNKNOWN Verified 05/18/25 06:27 Puxmpmf-YER-RwP Reductase Allergy Unknown Verified 05/18/25 06:27 Inhibitor (Vliswnq-Dds-Yir Reductase Inhibitor) Sulfa (Sulfonamide Allergy UNKNOWN Verified 05/18/25 06:27 Antibiotics) PFSH Acute PFSH: Medical History History of osteonecrosis Bilateral femoral head osteonecrosis Hx of malignant lymphoma History of MALT lymphoma GERD (gastroesophageal reflux disease) Degenerative arthritis Benign essential HTN COPD (chronic obstructive pulmonary disease) Hypertriglyceridemia Fatigue Hx of skin cancer, basal cell Seronegative rheumatoid arthritis of both hands BPH loc w urin obs/LUTS High risk medication use Prostate cancer History of rectal fissure Chronic prostatitis Family history of prostate cancer Surgical History H/O prostate biopsy History of rectal surgery History of total right knee replacement Hx of vasectomy History of prostate surgery History of detached retina repair RIGHT EYE History of appendectomy History of lung biopsy (2001) Resection of right upper lobe pulmonary nodule History of shoulder surgery LEFT DISTAL CLAVICLE RESECTION ACROMIOPLASTY AND EXPLORATION OF ROTATOR CUFF History of parotid gland removal (2001) History of knee surgery Family History Mother , AT AGE 76 Dementia ALZHEIMERS Father , AT AGE 75 ESOPHAGEAL CANCER PROSTATE CANCER Cancer Grandmother CAD (coronary artery disease) Stroke Family/Other Lung disease Denies family history of Rheumatoid arthritis Diabetes Lupus Clotting disorder Chronic kidney disease (CKD) Suicide Anesthesia complication Bleeding disorder Social History Smoking and tobacco/nicotine status: never used tobacco/nicotine Alcohol intake: never Substance/Drug Use: never Adopted: No Caregiver/support person: No Lives independently: No Household members: spouse Marital status: Current occupational status: retired Current gender identity: Male Vitals/I&O/Wt Last Vital Signs Temp 98.6 F 05/18/25 06:27 Pulse 64 05/18/25 11:30 Resp 26 H 05/18/25 11:30 BP 115/68 05/18/25 11:30 Pulse Ox 95 05/18/25 11:30 O2 Del Method Room Air 05/18/25 10:32 05/17/25 05/18/25 05/18/25 22:59 06:59 14:59 Intake Total 0 / 0 Balance 0 / 0 Weight last 48 hrs Weight 115.711 kg Physical Exam Narrative: Accompanied by his . Const: COMMON NORMALS: patient oriented x3 and alert GENERAL APPEARANCE: cooperative ORIENTATION/CONSCIOUSNESS: Yes awake HENMT: COMMON NORMALS: oropharynx normal Neck/C-Spine: COMMON NORMALS: no JVD Resp: COMMON NORMALS: normal respiratory effort and clear to auscultation bilaterally AUSCULTATION: clear to auscultation bilaterally Cardio: COMMON NORMALS: no JVD, regular rhythm, S1 normal heart sound present, S2 normal heart sound present and No murmurs present (Cardio) RHYTHM: regular rhythm HEART SOUNDS: S1 normal heart sound present and S2 normal heart sound present GI: COMMON NORMALS: Normal to inspection, nondistended, normoactive bowel sounds present, Soft to palpation and non-tender PALPATION: Yes Soft to palpation Extremity: COMMON NORMALS: no joint enlargement GENERAL: Yes edema (2+) Neuro: COMMON NORMALS: patient oriented x3 and moves all extremities SENSORIUM/ORIENTATION: Yes alert Skin: COMMON NORMALS: no rashes or lesions noted GENERAL SKIN EXAM: no rashes or lesions noted Data 05/18/25 06:40 05/18/25 06:40 A&P Assessment and plan (1) Unstable angina: The patient presented with new/worsening chest pain for 3-4 days, intermittent, worse with exertion, improved with rest, radiating to both arms, and described as pressure. History of abnormal stress tests and suspected coronary artery disease. Initial EKG showed first-degree AV block and anterior depressions. Troponin mildly to moderately elevated (41 at baseline, 46.45 at 2 hours). Cardiology consulted; concern for unstable angina or critical coronary stenosis. No acute worsening of chronic shortness of breath or other associated symptoms. No prior stents. Family history negative for heart disease. - Continue cardiac monitoring. - Echocardiogram to assess cardiac function. - Cardiology to evaluate for possible angiogram (catheterization) to assess for coronary blockages and possible stent placement. - Continue aspirin, blood thinner as started in hospital with heparin drip. Monitor for risk of bleeding. Monitor PTT. - Second antiplatelet per cardiology. - Monitor for recurrence or worsening of chest pain. - Monitor blood pressure with discussed long-term goal <120/80 mmHg. - Discussed to follow-up with primary provider for initiation of PCSK9 inhibitor for cholesterol management due to statin intolerance. - Lifestyle counseling: diet, weight loss, moderate exercise (150 minutes/week). (2) Leg swelling: Chronic leg edema, on Lasix at home. Continue Lasix. Assess TTE. Currently does not report symptoms of acute CHF. Monitor. Plan History of prostate cancer (previously metastatic, on treatment) : History of prostate cancer with prior bone metastasis, treated, currently on Erleada. Last PET scan showed no evidence of disease, but patient remains on therapy. Oncology follow-up ongoing. - Continue Erleada as per oncology. - Continue oncology follow-up for prostate cancer surveillance. 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 - Continue oncology follow-up as indicated. Seronegative rheumatoid arthritis : History of seronegative rheumatoid arthritis, on prednisone 5 mg daily. No acute flare reported. Prednisone is for arthritis. - Continue prednisone 5 mg daily. - Monitor for side effects of chronic steroid use. COPD : History of COPD. Not on home oxygen or inhalers. No recent exacerbation or increased symptoms reported. - Monitor for respiratory symptoms. - No inhalers or oxygen required at this time. Hyperlipidemia (statin intolerance) : History of hyperlipidemia. Statin (atorvastatin) previously tried but discontinued due to leg pain. PCSK9 inhibitor discussed as alternative. - Discuss with primary care about starting PCSK9 inhibitor for cholesterol management. Chronic lung nodules/opacity (left lower lobe) : Chronic opacity in left lower lobe on chest x-ray, with prior nodules on CT. Patient follows with oncology for this finding. No acute changes reported. - Continue oncology follow-up for lung nodules. Chronic mild leg swelling : Chronic mild leg swelling, baseline for patient, managed with furosemide. - Continue furosemide as per prior regimen. - Monitor for worsening edema. PDMP PDMP Reviewed: Not Reviewed Attestations Medical Necessity Statement*: Admission of over 2 midnights anticipated for assessment management of unstable angina in a gentleman with additional underlying comorbidities as above. Coding Level of Care Code Acute Code for [facility] Diagnoses Unstable angina I20.0 Leg swelling M79.89
[2025-05-18 12:05] LABS: D Dimer 0.58 ug/mLFEU (0-0.59)
[2025-05-18 13:27] LABS: Troponin 5 6HR 46.95 ng/L (0-15); Troponin 5 6HR Delta 5.95 ng/L (0-12)
--- NOTE | 2025-05-18 13:27 | ECG_ITS ---
[facility] Test Date: 2025-05-18 Pat Name: Xavi Squires Department: Room: ED Gender: Male Showroom Manager: : 1950 Requested By: John Garcia Order Number: [id number] Rossana MD: Deborah Mendoza M.D. Measurements Intervals [place] Rate: 63 P: 57 GA: 237 QRS: -12 QRSD: 79 T: 33 QT: 382 QTc: 392 Interpretive Statements SINUS RHYTHM WITH FIRST DEGREE AV BLOCK Compared to ECG 05/18/2025 08:36:35 No significant changes Electronically Signed On 05-18-2025 14:00:58 CDT by Deborah Mendoza M.D. [id number] [id number]
--- NOTE | 2025-05-18 13:28 | PC.NURSE ---
HOME MED, AMLODIPINE, ORDERED FOR PT. PT ALREADY HAS NITRO PASTE ON. PT CURRENT BLOOD PRESSURE 126/69. DISCUSSED ORDERED MEDICATION WITH DR. MONTERO. THIS NURSE WAS ADVISED TO HOLD AMLODIPINE AT THIS TIME.
[2025-05-18] MEDS: FUROsemide 20 mg Tablet 40 MG PO (13:57)
[2025-05-18] MEDS: predniSONE 5 mg Tablet PO (14:16)
[2025-05-18] MEDS: APALUTAMIDE 60 MG 240 EACH PO (14:28)
--- NOTE | 2025-05-18 14:44 | USCV_ITS ---
Xavi Squires Age: 75 Gender: M : 1950 Exam Date: 05/18/2025 17:08 Ordering Phys: Walter Weber MD Technologist: СЕРГЕЙ [place]am [place] [facility] [place]: UA BP: 134 / 81 HR: 73 Rhythm: Sinus Technical Quality: Adequate MEASUREMENTS (Male / Female) Normal Values 2D ECHO LV Diastolic Diameter PLAX 4.3 cm 4.2 - 5.9 / 3.9 - 5.3 cm IVS Diastolic Thickness 1.3 cm 0.6 - 1.0 / 0.6 - 0.9 cm IVS Systolic Thickness 1.6 cm LVPW Diastolic Thickness 1.4 cm 0.6 - 1.0 / 0.6 - 0.9 cm LVPW Systolic Thickness 1.3 cm LVOT Diameter 2.1 cm LV Ejection Fraction 2D Teich 60.0 % LV Ejection Fraction MOD 4C 54.1 % LV Ejection Fraction MOD 2C 67.2 % LV Ejection Fraction 2C AL 68.3 % LA Diameter 4.7 cm RA Systolic Volume 4C AL 36.7 ml RA Systolic Volume 4C MOD 36.0 ml LA Sys Volume AL 55.8 cm cubed LA Sys Volume Index AL 24.0 cm cubed/m squared Aorta at Sinotubular Diameter 2.6 cm M-MODE LA Ao Ratio MM 1.1 AV Cusp Separation MM 1.9 cm DOPPLER AV Peak Velocity 140.0 cm/s LVOT Peak Velocity 118.0 cm/s AV Area Cont Eq vti 3.8 cm squared AV Area Cont Eq pk 3.0 cm squared MV Peak Velocity 84.0 cm/s MV Area PHT 4.0 cm squared Mitral E to A Ratio 0.8 TR Peak Velocity 117.0 cm/s TR Peak Gradient 5.5 mmHg TV Peak E Velocity 75.0 cm/s PV Peak Velocity 104.0 cm/s FINDINGS Left Ventricle Mild concentric left ventricle hypertrophy. Normal left ventricular systolic function with normal wall motion and thickening with no regional wall motion abnormalities. Estimated LVEF is 60%. Right Ventricle Normal right ventricular size and systolic function. Right Atrium Normal right atrial size. Left Atrium Moderately dilated left atrium. Mitral Valve Mildly thickened mitral valve. Trace mitral regurgitation. Aortic Valve Mildly thickened aortic valve. No aortic stenosis. Tricuspid Valve Structurally normal tricuspid valve. Trace tricuspid regurgitation. TR gradient 12 mmHg. PAP normal 17 mmHg. Pulmonic Valve Pulmonic valve not well visualized. Trace pulmonary valve regurgitation. Pericardium No pericardial effusion. Aorta Normal size aortic root and proximal ascending aorta. IVC Inferior vena cava not visualized. CONCLUSIONS Mild concentric left ventricle hypertrophy. Normal left ventricle systolic function. Estimated LVEF normal 60%. No significant valvular abnormality noted. Normal right heart and pulmonary pressures. Deborah Mendoza MD (Electronically Signed) Final Date: 19 May 2025 15:18 S
[2025-05-18] MEDS: allopurinol 100 mg Tablet PO (17:02)
[2025-05-18] MEDS: pantoprazole DR 40 mg Tablet PO (17:02)
[2025-05-18 17:43] LABS: Glucose Point of Care 175 mg/dL (70-110)
[2025-05-18 18:20] LABS: Partial Thromboplastin Time 112.9 SECONDS (23.9-36.7)
[2025-05-18 20:01] LABS: Glucose Point of Care 177 mg/dL (70-110)
[2025-05-18] MEDS: losartan 50 mg Tablet PO (20:45)
--- NOTE | 2025-05-18 21:58 | ECG_ITS ---
[facility]18 Pat Name: Xavi Squires Department: Room: 107 Gender: Male Tire Stripper: : 1950 Requested By: Walter Weber Order Number: [id number] Rossana MD: Deborah Mendoza M.D. Measurements Intervals Secretary Rate: 83 P: 66 HI: 217 QRS: -2 QRSD: 82 T: 12 QT: 345 QTc: 406 Interpretive Statements SINUS RHYTHM WITH SINUS ARRHYTHMIA WITH FIRST DEGREE AV BLOCK POSSIBLE INFERIOR MYOCARDIAL INFARCTION , PROBABLY OLD [30 ms Q WAVE IN II/aVF] Compared to ECG 05/18/2025 13:27:32 Myocardial infarct finding now present Electronically Signed On 05-21-2025 19:31:09 CDT by Deborah Mendoza M.D. [email or web address]
[2025-05-19] VITALS (8 sets, daily range): BP systolic 117–171; BP diastolic 55–108; PULSE 62–86; RESP 17–22; TEMP 36.4–37.4; O2SAT 93–99
[2025-05-19 01:49] LABS: Basophils % 0.6 %; Eosinophils # 0.1 10^3/uL (0.0-0.8); Eosinophils % 1.8 %; Lymphocytes # 0.6 10^3/uL (0.8-4.8); Lymphocytes % 10.7 %; Mean Corpuscular HGB Conc 32.7 g/dL (30-55); Mean Corpuscular Hemoglobin 31.4 pg (27-33); Mean Corpuscular Volume 95.9 fl (82-101); Mean Platelet Volume 8.9 fL (7.4-10.4); Monocytes # 0.4 10^3/uL (0.2-0.9); Monocytes % 7.6 %; Neutrophils # 4.24 10^3/uL (1.8-7.7); Neutrophils % 78.4 %; Nucleated Red Blood Cells % 0 %; Platelet Count 170 10^3/cmm (157-399); Red Blood Count 3.44 10^6/uL (3.85-5.65); Red Cell Distribution Width 13.1 % (12.1-15.1); White Blood Count 5.41 10^3/uL (3.29-11.43)
[2025-05-19 02:06] LABS: Partial Thromboplastin Time 75.3 SECONDS (23.9-36.7)
[2025-05-19 02:12] LABS: Anion Gap 15.9 (5-19); Blood Urea Nitrogen 18 mg/dL (8-23); Calcium 9.2 mg/dL (8.5-10.5); Carbon Dioxide 24 mmol/L (22-29); Chloride 104 mmol/L (98-107); Creatinine Clr Calc Pharmacy 74.9261; Glucose 127 mg/dL (65-115); Osmolality Calculated 293 mOsm/kg (285-295); Potassium 3.9 mmol/L (3.5-5.1); Sodium 140 mmol/L (136-145)
[2025-05-19] MEDS: heparin drip 25,000 UNIT/500 ML PREMIX 23 UNIT IV (05:26)
[2025-05-19 06:11] LABS: Glucose Point of Care 156 mg/dL (70-110)
[2025-05-19 08:36] LABS: Partial Thromboplastin Time 55.4 SECONDS (23.9-36.7)
--- NOTE | 2025-05-19 09:07 | XACV_ITS ---
Exam Room: 2 Ht: 165 cm Wt: 111 kg BSA: 2.31 m2 Gender: Male : 1950 Performing Physician(s): Dr. Mendoza Any Known Allergies: Other Exam Priority: Routine Procedure(s): Procedure Description: Diagnostic procedure Procedure Description: PCI procedure Procedure Description: Drug Eluting Coronary Stent Procedure Description: PTCA Procedure Description: Miscellaneous Procedure Description: ACT Procedure Description: Coronary Angiography Walter Weber; Diagnostic Cath Status: Urgent Diagnostic Findings * LM: Normal. * LAD: Medium size vessel. moderate 60% stenosis in mid vessel. * Ramus: Large size vessel. 90%stenosis in the proximal segment. * LCx: Medium size vessel with minor irregularities. OM1 small size vessel with 70% stenosis in the proximal segment. * RCA: RCA large dominant vessel. There is a 95% stenosis in the proximal-mid vessel. SHANNEN II flow in the distal vessel. * Summary: Severe RCA and Ramus stenosis. Moderate disease in mid LAD. * Recommendation: PCI of RCA and Ramus. * Left Main has no disease. * Left Anterior Descending has no disease. * Circumflex has no disease. * Proximal Right Coronary Artery: obstructive 70% stenosis, SHANNEN: 3 flow. * Ramus: obstructive 70% stenosis, SHANNEN: 3 flow. * Ramus: obstructive 70% stenosis, SHANNEN: 3 flow. * Coronary angiography shows right dominance. PCI Status: Urgent PCI LVEF Assessed: Yes PCI Indication: New Onset Angina <= 2 months Interventional Findings * 1. Successful PCI of prox-mid RCA with CORTNEY 3.5x22 performed, Post stent dilatation with 3.75 NC balloon upto 16 moraima. IC nitro was given and SHANNEN flow improved from SHANNEN II to SHANNEN III. * 2. Successful PCI of proximal Ramus with 3.0x 18 CORTNEY. Post PCI SHANNEN II flow. * Proximal Right Coronary Artery: 70% stenosis treated with a AB TREK 2.50X12 RX BALLOON, MDT R JENISE 3.5X22 CORTNEY, and MDT NC EUPHORA RX [id number] BALLOON. * Ramus: 70% stenosis treated with a AB TREK 2.50X12 RX BALLOON, and MDT R JENISE 3.0X18 CORTNEY. Conclusions 1. Successful PCI of RCA and Ramus with DRES. 2. There is obstructive coronary artery disease with one vessel disease. 3. Proximal Right Coronary Artery was treated with a Balloon, Drug Eluting Stent, and Balloon. 4. Ramus was treated with a Balloon, and Drug Eluting Stent. Recommendations * Return to inpatient for close monitoring and routine cath care. * Post PCI management. Interventional RX Recommendation: PCI w/o planned CABG Diagnostic RX Recommendation: PCI w/o planned CABG Anticoagulation: Heparin Post Op Diagnosis: Description: Unstable angina Pressures Phase:Rest AO : 110 / 78 ( 94 ) @ 12:14:00 PM 128 / 69 ( 89 ) @ 12:23:00 PM 119 / 62 ( 86 ) @ 12:37:00 PM 113 / 66 ( 84 ) @ 12:51:00 PM Clinical Evaluation EBL: 5mL-10mL Procedural Details Procedure Consent Obtained. Pre-Procedure Time Out. Identified patient by full name and date of as verbalized by the patient/guarantor. Does the consent match the physician's order: Yes. Accurate & Complete Informed Consent: Yes. Inpatient/Outpatient History & Physical on Chart: Yes. If H&P is completed, is and addenduem needed: No. Visualize and Verify Site with Patient/Guarantor: N/A. Relevant Radiology Images available: Yes. The risks, benefits, and alternatives of sedation and/or procedure were discussed by physician. The patient agrees to continue. Procedure started. [facility] Clinical Fraility Score: 3: Managing Well. Automat Watcher Indications: Worsening Angina/Unstable angina. Chest Pain Symptom Assessment: Typical Angina Symptoms. Cardiovascular Instability: No. Correct patient, site and procedure confirmed by cath team. PERRLA. Strong, equal hand waiter waitress bilaterally. Lungs clear x 5 lobes. IV Site on Arrival: 20 gauge in the left anticubital. IV Fluids: 0.9% NaCl at KVO. 0 mL infused prior to dental laboratory technology teacher. Pre Procedural Pulses: bilateral dorsalis pedis was 1+. Pre Procedural Pulses: bilateral posterior tibial was 1+. Pre Procedural Pulses: bilateral radial was 2+. Oxygen started at 2liters/min via nasal canula. right groin was prepped with chloroprep then draped in the usual sterile fashion. right radial was prepped with chloroprep then draped in the usual sterile fashion. Physician notified. Baseline sample Acquired. HR: 64 BPM. Patient's spouse, Javier, in the dental laboratory technology teacher waiting room. Dr. Mendoza will update at the completion of the procedure. Equipment: 6F - Radial. Cardiac Cath Pack. ACIST Manifold Kit Model BT 2000. Heparinized Saline (2 units/mL), 1000 mL bag. Physician arrived. Physician scrubbed in. Immediate Pre-Procedure Time Out. Correct Patient: Yes; Correct Procedure: Yes; Correct Site: Yes; Correct Patient Position: Yes; Correct Supplies: Yes; Dried Flammable Prep: Yes; Blood Products Available: N/A;. Lidocaine 1% infiltrated to the right radial. Arterial access obtained. A 5 northern irish JL3.5 catheter in over the exchange J wire. Exchange J wire out, 0.014 x 190cm Wiggle guidewire in. Wiggle wire out. Catheter removed over the exchange J wire. A 5 northern irish JR4 catheter in over the exchange J wire. Exchange J wire out. Hand injection performed through the catheter of the right Subclavian. Exchange J wire in. Exchange J wire out, 0.035 x 260cm stiff angled glidewite in. Glidewire out. Multiple views taken of right coronary artery. Catheter removed over the exchange J wire. A 5 northern irish JL3.5 catheter in over the exchange J wire. Multiple views taken of left coronary artery. Catheter removed over the exchange J wire. 6 northern irish JR 4 guide catheter was inserted over the exchange J wire. Runthrough guidewire was advanced through the guide catheter to lesion in the prox RCA. Inflation number : 1 A AB TREK 2.50X12 RX BALLOON was prepped and advanced across the Prox RCA , then inflated to 8 MORAIMA for 0:06 seconds. Inflation number: 2 The AB TREK 2.50X12 RX BALLOON was reinflated across the Prox RCA, to 14 MORAIMA for 0:12 seconds. Inflation number: 3 The AB TREK 2.50X12 RX BALLOON was reinflated across the Prox RCA, to 12 MORAIMA for 0:08 seconds. Inflation number: 4 The AB TREK 2.50X12 RX BALLOON was reinflated across the Prox RCA, to 12 MORAIMA for 0:05 seconds. Inflation number: 5 The AB TREK 2.50X12 RX BALLOON was reinflated across the Prox RCA, to 14 MORAIMA for 0:10 seconds. Balloon out. Inflation Number : 6 A BENJIE Pizano JENISE 3.5X22 CORTNEY -Lot Number# [id number] Exp. was prepped and advanced across the Prox RCA. The stent was deployed at 15 MORAIMA for 0:13 seconds. Stent balloon out over wire. Results checked. Inflation number : 7 A BENJIE CAREY EUPHORA RX [id number] BALLOON was prepped and advanced across the Prox RCA , then inflated to 16 MORAIMA for 0:12 seconds. Balloon out. Results checked. Wire out. Guide catheter out over the exchange J wire. 6 northern irish CLS 3.5 guide catheter was inserted over the exchange J wire. ACT drawn. Results 230 seconds. Therapeutic limits - pre-heparin administration 90-150 seconds and monitoring heparin during a vascular procedure >250 seconds. Runthrough guidewire was advanced through the guide catheter to lesion in the prox LAD. Inflation number: 1 The AB TREK 2.50X12 RX BALLOON was reinflated across the Ramus, to 12 MORAIMA for 0:03 seconds. Inflation number: 2 The AB TREK 2.50X12 RX BALLOON was reinflated across the Ramus, to 12 MORAIMA for 0:04 seconds. Inflation number: 3 The AB TREK 2.50X12 RX BALLOON was reinflated across the Ramus, to 12 MORAIMA for 0:03 seconds. Inflation number: 4 The AB TREK 2.50X12 RX BALLOON was reinflated across the Ramus, to 12 MORAIMA for 0:05 seconds. Balloon out. Inflation Number : 5 Rhys Pizano JENISE 3.0X18 CORTNEY -Lot Number# [id number] Exp. 2026.12.10 was prepped and advanced across the Ramus. The stent was deployed at 14 MORAIMA for 0:11 seconds. Stent balloon out over wire. Results checked. Wire out. Guide catheter out over the exchange J wire. Sheath upsized to a 6 Fr. 6 northern irish JR 4 guide catheter was inserted over the exchange J wire. Cine of the RCA performed. Guide catheter out over the exchange J wire. Physician scrubbed out. A TR Band was successful obtaining hemostatsis at the Right Radial artery insertion site. Post Procedure: Pulses reassessed and unchanged. PERRLA. Strong, equal hand waiter waitress bilaterally. No VTE prophylaxis required. Medication's Wasted: Lidocaine 1% = 18 mL. Medication's Wasted: Nitro = 49.6 mg. Total IV fluids: 250 mL. PCI Indication: CAD (without ischemic symptoms). Post-op diagnosis: PCI of the Prox RCA and Ramus. Complications: none. Estimated blood loss: 5mL-10mL. Responsiveness - Normal response to verbal stimuli; alert and oriented, PERRLA. Airway - Unaffected, no intervention required; spontaneous ventilation. Circulation: W/N/L, pulses unchanged. Nausea/Vomiting: No. Procedure completed. Patient transferred by bed to 1st floor. Vital chart was stopped. Access Site Site: Right Radial artery Sheath Size: 6 Fr Hemostasis Method: TR Band Hemostasis Success: Successful Procedure Medications Start: 10:47 AM Stop: 10:47 AM Medication: Benadryl Amount: 25 mg Start: 10:52 AM Stop: 10:52 AM Medication: Versed Amount: 1 mg Start: 10:52 AM Stop: 10:52 AM Medication: Fentanyl Amount: 50 mcg Route: I.V. Start: 10:57 AM Stop: 10:57 AM Medication: Nitrogylcerin Amount: 200 mcg Route: I.A. Start: 11:10 AM Stop: 11:10 AM Medication: Versed Amount: 1 mg Route: I.V. Start: 11:20 AM Stop: 11:20 AM Medication: Heparin Amount: 8000 units Route: I.V. Start: 11:24 AM Stop: 11:24 AM Medication: Fentanyl Amount: 25 mcg Route: I.V. Start: 11:30 AM Stop: 11:30 AM Medication: Nitrogylcerin Amount: 100 mcg Route: I.C. Start: 11:35 AM Stop: 11:35 AM Medication: Fentanyl Amount: 25 mcg Route: I.V. Start: 11:39 AM Stop: 11:39 AM Medication: Morphine Amount: 2 mg Route: I.V. Start: 11:40 AM Stop: 11:40 AM Medication: Heparin Amount: 3000 units Route: I.V. Start: 11:47 AM Stop: 11:47 AM Medication: Morphine Amount: 2 mg Route: I.V. Start: 11:50 AM Stop: 11:50 AM Medication: Nitrogylcerin Amount: 100 mcg Route: I.C. Start: 11:53 AM Stop: 11:53 AM Medication: Zofran (ondansetron) Amount: 4 mg Route: I.V. Start: 11:54 AM Stop: 11:54 AM Medication: 0.9% Saline Amount: ml Route: I.V. bolus Start: 11:55 AM Stop: 11:55 AM Medication: Plavix Amount: 600 mg Route: P.O. I, the attending physician, have reviewed and verified all procedure medications. Yes, all medications given per verbal order History/Risk Factors Hypertension: Yes Dyslipidemia: No Peripheral Arterial Disease (PAD): No Myocardial Infarction (WI): No Obesity: Yes Renal Disease: No Tobacco Use: Never Prior Interventions PCI: No CABG: No Valve Surgery: No Report Signatures Finalized by Deborah Mendoza MD on 05/19/2025 01:04 PM
--- NOTE | 2025-05-19 09:11 | PC.SOCIAL ---
IMM Update Pg 2 of IMM updated and reviewed with patient, who verbalized understanding. Copy provided at bedside.
[2025-05-19] MEDS: metoprolol tartrate 50 mg Tablet PO (09:16)
[2025-05-19] MEDS: aspirin 325 mg Tablet PO (09:16)
[2025-05-19] MEDS: pantoprazole DR 40 mg Tablet PO ×2 (09:16→17:28)
[2025-05-19] MEDS: allopurinol 100 mg Tablet PO ×2 (09:17→17:28)
[2025-05-19] MEDS: amlodipine 10 mg Tablet PO (09:17)
[2025-05-19] MEDS: predniSONE 5 mg Tablet PO (09:21)
--- NOTE | 2025-05-19 10:37 | PC.NURSE ---
to cardiac laboratory chemical assistant via bed at this time
[2025-05-19] MEDS: APALUTAMIDE 60 MG 240 EACH PO (12:53)
[2025-05-19] MEDS: FUROsemide 20 mg Tablet 40 MG PO (12:53)
--- NOTE | 2025-05-19 13:29 | PC.NURSE ---
return from cardiac powerhouse laborer via bed at 1210.report received.pt is alert and awake and oriented x 4.denies pain at present.sr on monitor.right wrist with tr band on and inflated.right hand is warm to touch and with brisk capillary refill.no hematoma noted.palpable radial pulse noted distal to tr band.pt instructed in activity restrictions s/p radial artery procedure...and instructed to notify staff for any bleeding,pain,numbness,sob,or for any concerns at all.pt verb understanding of instructions
--- NOTE | 2025-05-19 14:56 | PC.NURSE ---
dr hill ordered nurse to resume heparin drip at 1210,(when he arrived back on unit)...and obtain ptt in 2-3 hours.
[2025-05-19 15:52] LABS: Partial Thromboplastin Time 187.8 SECONDS (23.9-36.7)
--- NOTE | 2025-05-19 17:19 | P.PN_ITS ---
Subjective 2 Subjective: Denies chest pain or pressure currently. Awaiting coronary angiogram. Vitals/I&O/Wt Last Vital Signs Temp 97.6 F 05/19/25 16:00 Pulse 67 05/19/25 16:00 Resp 17 05/19/25 16:00 BP 121/65 05/19/25 16:00 Pulse Ox 94 05/19/25 16:00 O2 Del Method Room Air 05/19/25 16:00 05/19/25 05/19/25 05/19/25 06:59 14:59 22:59 Intake Total 252.533 / 1060.000 238.45 / 238.45 381.55 / 620.00 Output Total 800 / 800 Balance 252.533 / 1060.000 238.45 / 238.45 -418.45 / -180.00 Weight last 48 hrs Weight 111.538 kg Weight 112.094 kg Weight 115.711 kg Physical Exam 2 Narrative: Accompanied by his . Const: COMMON NORMALS: patient oriented x3 and alert GENERAL APPEARANCE: c ooperative ORIENTATION/CONSCIOUSNESS: Yes awake HENMT: COMMON NORMALS: oropharynx normal Neck/C-Spine: COMMON NORMALS: no JVD Resp: COMMON NORMALS: normal respiratory effort and clear to auscultation bilaterally AUSCULTATION: clear to auscultation bilaterally Cardio: COMMON NORMALS: no JVD, regular rhythm, S1 normal heart sound present, S2 normal heart sound present and No murmurs present (Cardio) RHYTHM: regular rhythm HEART SOUNDS: S1 normal heart sound present and S2 normal heart sound present GI: COMMON NORMALS: Normal to inspection, nondistended, normoactive bowel sounds present, Soft to palpation and non-tender PALPATION: Yes Soft to palpation Extremity: COMMON NORMALS: no joint enlargement GENERAL: Yes edema (2+) Neuro: COMMON NORMALS: patient oriented x3 and moves all extremities S ENSORIUM/ORIENTATION: Yes alert Skin: COMMON NORMALS: no rashes or lesions noted GENERAL SKIN EXAM: no rashes or lesions noted Data 05/19/25 01:29 05/19/25 01:29 A&P Assessment and plan (1) Unstable angina: Awaiting coronary angiogram. Later on per discussion with cardiology found to have hemodynamically significant blockages of RCA and ramus intermedius which were intervened on. Continue postcardiac catheterization care. Monitor in telemetry with risk of arrhythmia with reperfusion injury. Continue DAPT, monitor for risk of bleeding. Reassess renal function. Blood counts. Reviewed cardiology note. Discussed with nursing, top case assembler. Echocardiogram reviewed - Continue aspirin, blood thinner as started in hospital with heparin drip. Monitor for risk of bleeding. Monitor PTT. - Monitor for recurrence or worsening of chest pain. - Monitor blood pressure with discussed long-term goal <120/80 mmHg. - Discussed to follow-up with primary provider for initiation of PCSK9 inhibitor for cholesterol management due to statin intolerance. - Lifestyle counseling: diet, weight loss, moderate exercise (150 minutes/week). (2) Leg swelling: Chronic leg edema, on Lasix at home. Continue Lasix. Edema improving. Reviewed TTE. Currently does not report symptoms of acute CHF. Monitor. Plan History of prostate cancer (previously metastatic, on treatment) : History of prostate cancer with prior bone metastasis, treated, currently on Erleada. Last PET scan showed no evidence of disease, but patient remains on therapy. Oncology follow-up ongoing. - Continue Erleada as per oncology. - Continue oncology follow-up for prostate cancer surveillance. 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 - Continue oncology follow-up as indicated. Seronegative rheumatoid arthritis : History of seronegative rheumatoid arthritis, on prednisone 5 mg daily. No acute flare reported. Prednisone is for arthritis. - Continue prednisone 5 mg daily. - Monitor for side effects of chronic steroid use. COPD : History of COPD. Not on home oxygen or inhalers. No recent exacerbation or increased symptoms reported. - Monitor for respiratory symptoms. - No inhalers or oxygen required at this time. Hyperlipidemia (statin intolerance) : History of hyperlipidemia. Statin (atorvastatin) previously tried but discontinued due to leg pain. PCSK9 inhibitor discussed as alternative. - Discuss with primary care about starting PCSK9 inhibitor for cholesterol management. Chronic lung nodules/opacity (left lower lobe) : Chronic opacity in left lower lobe on chest x-ray, with prior nodules on CT. Patient follows with oncology for this finding. No acute changes reported. - Continue oncology follow-up for lung nodules. Chronic mild leg swelling : Chronic mild leg swelling, baseline for patient, managed with furosemide. - Continue furosemide as per prior regimen. - Monitor for worsening edema. PDMP PDMP Reviewed: Not Reviewed Attestations 2 Medical Necessity Statement*: Continue admission for assessment management after unstable angina and coronary intervention. Diagnoses Unstable angina I20.0 Leg swelling M79.89
--- NOTE | 2025-05-19 18:16 | PC.NURSE ---
tr band slowly deflated and eventually removed at 1630.right hand remains warm to touch and with brisk capillary refill.palpable radial pulse noted.no hematoma noted.site dressed with 2x2 gauze and secured with biocclusive drsg.pt instructed in activity restrictions s/p tr band removal..and instructed to notify staff for any bleeding,pain,numbness,sob, or for any concerns at all.pt verb understanding of instructions
[2025-05-19] MEDS: losartan 50 mg Tablet PO (22:29)
[2025-05-20 03:48] VITALS: BP 133/68; PULSE 82; RESP 18; TEMP 37.6; O2SAT 98
[2025-05-20 05:20] LABS: Basophils % 0.3 %; Eosinophils # 0.1 10^3/uL (0.0-0.8); Eosinophils % 1.3 %; Hematocrit 32.2 % (37-53); Lymphocytes # 0.5 10^3/uL (0.8-4.8); Lymphocytes % 6.8 %; Mean Corpuscular HGB Conc 32.3 g/dL (30-55); Mean Corpuscular Hemoglobin 31.9 pg (27-33); Mean Corpuscular Volume 98.8 fl (82-101); Monocytes # 0.6 10^3/uL (0.2-0.9); Neutrophils # 5.69 10^3/uL (1.8-7.7); Neutrophils % 82.9 %; Nucleated Red Blood Cells % 0 %; Platelet Count 169 10^3/cmm (157-399); Red Blood Count 3.26 10^6/uL (3.85-5.65); White Blood Count 6.87 10^3/uL (3.29-11.43)
[2025-05-20 05:39] LABS: Anion Gap 15.1 (5-19); Blood Urea Nitrogen 15 mg/dL (8-23); Calcium 8.9 mg/dL (8.5-10.5); Carbon Dioxide 25 mmol/L (22-29); Chloride 102 mmol/L (98-107); Creatinine Clr Calc Pharmacy 74.9885; Glucose 131 mg/dL (65-115); Osmolality Calculated 289 mOsm/kg (285-295); Potassium 4.1 mmol/L (3.5-5.1); Sodium 138 mmol/L (136-145)
[2025-05-20 08:00] VITALS: BP 146/66; PULSE 77; RESP 20; TEMP 36.3; O2SAT 93
[2025-05-20] MEDS: APALUTAMIDE 60 MG 240 EACH PO (09:31)
[2025-05-20] MEDS: predniSONE 5 mg Tablet PO (09:32)
[2025-05-20] MEDS: clopidogrel 75 mg Tablet PO (09:32)
[2025-05-20] MEDS: pantoprazole DR 40 mg Tablet PO (09:34)
[2025-05-20] MEDS: FUROsemide 20 mg Tablet 40 MG PO (09:34)
[2025-05-20] MEDS: amlodipine 10 mg Tablet PO (09:34)
[2025-05-20] MEDS: metoprolol tartrate 50 mg Tablet PO (09:34)
[2025-05-20] MEDS: allopurinol 100 mg Tablet PO (09:35)
[2025-05-20] MEDS: aspirin 325 mg Tablet PO (09:35)
[2025-05-20] MEDS: enoxaparin 40 mg/0.4 mL Syringe SUBCUT (09:35)
--- NOTE | 2025-05-20 10:00 | P.PN_ITS ---
Subjective 2 Subjective: I saw Mr. Squires this morning. Reviewed his vitals, labs and current medication. Clinically he is doing fine no further chest pain. He is asymptomatic. Resting comfortably. No further cardiovascular complaint. Vitals are stable and tolerating current medications well. Medications: Medication Review Details: I reviewed his medications. Note he is documented to have allergy to statins. Vitals/I&O/Wt Last Vital Signs Temp 97.4 F L 05/20/25 08:00 Pulse 77 05/20/25 08:00 Resp 20 H 05/20/25 08:00 BP 146/66 05/20/25 08:00 Pulse Ox 93 05/20/25 08:00 O2 Del Method Room Air 05/20/25 08:00 05/19/25 05/20/25 05/20/25 22:59 06:59 14:59 Intake Total 381.55 / 620.00 120 / 120 Output Total 1300 / 1300 500 / 1800 Balance -918.45 / -680.00 -500 / -1180.00 120 / 120 Weight last 48 hrs Weight 247 lb 8 oz Weight 245 lb 14.4 oz Weight 247 lb 2 oz Physical Exam 2 HENMT: OTHER: Normal Chest: OTHER: Normal Resp: OTHER: Good air entry bilaterally. No added sounds. Cardio: OTHER: Normal 1st and 2nd heart sounds. No added sounds. GI: OTHER: Normal, soft abdomen nontender. Bowel sounds audible. Extremity: NARRATIVE EXTREMITY EXAM: No lower extremity edema. Distal pulses palpable bilaterally. Neuro: OTHER: Grossly intact Skin: NARRATIVE SKIN EXAM: Skin warm and dry. Data 05/20/25 05:14 05/20/25 05:14 A&P Assessment and plan (1) Unstable angina: Plan 75-year-old male patient admitted with unstable angina. Angiography revealed severe stenosis of proximal mid RCA and proximal ramus. Successful angioplasty of RCA and ramus with a CORTNEY. He is doing well and asymptomatic currently. No further angina or any heart failure symptoms. Vitals are stable. I reviewed his medication and made adjustment 1. Reduced aspirin from 300 to 81 mg once a day 2. Continue Plavix 75 mg once a day 3. Stopped Lovenox 4. Reduced dose of furosemide from 40 to 20 mg once a day Plan for discharge home today and follow-up in the cardiology office in 2 weeks. PDMP PDMP Reviewed: Not Reviewed Attestations 2 Medical Necessity Statement*: Unstable angina/status post PCI of RCA and ramus Coding Level of Care Code 40755 Diagnoses Unstable angina I20.0 Time Spent (min) 20
--- NOTE | 2025-05-20 11:56 | P.DS_ITS ---
Discharge Providers Date of Admission: 05/18/25 12:33 Date of Discharge: May 20, 2025 Attending Provider at Admission: Walter Weber Attending Provider at Discharge: Cynthia Valdez MD Primary Care Provider: Yaakov Rolle MD Diagnoses at Discharge Discharge Diagnosis (1) Unstable angina: Status: Resolved Reason for Visit Reason for Visit: cp Hospital Course Hospital Course Patient was admitted for unstable angina and underwent coronary angiogram the next day. PCI was performed proximal mid RCA, proximal ramus, patient was monitored in the hospital postprocedure and discharged home the next day in stable condition with aspirin Plavix and to follow-up with cardiology as an outpatient. Physical Exam Const: COMMON NORMALS: patient oriented x3 and alert GENERAL APPEARANCE: cooperative ORIENTATION/CONSCIOUSNESS: Yes awake HENMT: COMMON NORMALS: oropharynx normal Neck/C-Spine: COMMON NORMALS: no JVD Resp: COMMON NORMALS: normal respiratory effort and clear to auscultation bilaterally AUSCULTATION: clear to auscultation bilaterally Cardio: COMMON NORMALS: no JVD, regular rhythm, S1 normal heart sound present, S2 normal heart sound present and No murmurs present (Cardio) RHYTHM: regular rhythm HEART SOUNDS: S1 normal heart sound present and S2 normal heart sound present GI: COMMON NORMALS: Normal to inspection, nondistended, normoactive bowel sounds present, Soft to palpation and non-tender PALPATION: Yes Soft to palpation Extremity: COMMON NORMALS: no joint enlargement GENERAL: Yes edema (2+) Neuro: COMMON NORMALS: patient oriented x3 and moves all extremities SENSORIUM/ORIENTATION: Yes alert Skin: COMMON NORMALS: no rashes or lesions noted GENERAL SKIN EXAM: no rashes or lesions noted Discharge Data Studies Completed and Pending Completed Studies During Hospitalization Category Date Time Status D[employer]OR request for service Routine Exams 05/19/25 09:07 Completed XR chest 1V portable [id number] Stat Exams 05/18/25 06:27 Completed CV. echo complete* [id number] Routine Ultrasound 05/18/25 14:44 Completed Pending at discharge Category Date Time Status Basic Metabolic Panel AM LABS Lab 05/21/25 04:00 Ordered Complete Blood Count w/Auto AM LABS Lab 05/21/25 04:00 Ordered Radiology Impressions Chest X-Ray 05/18/25 06:27 Impression: 1. Patchy opacity in left lower lobe unchanged. 2. Cardiomegaly and atherosclerosis. Laboratory Results WBC 6.87 10^3/uL (3.29-11.43) 05/20/25 05:14 RBC 3.26 10^6/uL (3.85-5.65) L 05/20/25 05:14 Hgb 10.40 g/dL (11.27-16.99) L 05/20/25 05:14 Hct 32.2 % (37-53) L 05/20/25 05:14 MCV 98.8 fl (82-101) 05/20/25 05:14 MCH 31.9 pg (27-33) 05/20/25 05:14 MCHC 32.3 g/dL (30-55) 05/20/25 05:14 RDW 13.0 % (12.1-15.1) 05/20/25 05:14 Plt Count 169 10^3/cmm (157-399) 05/20/25 05:14 MPV 9.0 fL (7.4-10.4) 05/20/25 05:14 Neut % (Auto) 82.9 % 05/20/25 05:14 Lymph % (Auto) 6.8 % 05/20/25 05:14 Duchesne % (Auto) 8.0 % 05/20/25 05:14 Eos % (Auto) 1.3 % 05/20/25 05:14 Baso % (Auto) 0.3 % 05/20/25 05:14 Neut # (Auto) 5.69 10^3/uL (1.8-7.7) 05/20/25 05:14 Lymph # (Auto) 0.5 10^3/uL (0.8-4.8) L 05/20/25 05:14 Duchesne # (Auto) 0.6 10^3/uL (0.2-0.9) 05/20/25 05:14 Eos # (Auto) 0.1 10^3/uL (0.0-0.8) 05/20/25 05:14 Baso # (Auto) 0.0 10^3/uL (0.0-0.1) 05/20/25 05:14 Nucleated RBC % (auto) 0 % 05/20/25 05:14 Nucleated RBCs # 0.0 /100WBC 05/20/25 05:14 APTT 187.8 SECONDS (23.9-36.7) H* D 05/19/25 15:10 D-Dimer 0.58 ug/mLFEU (0-0.59) 05/18/25 06:40 Sodium 138 mmol/L (136-145) 05/20/25 05:14 Potassium 4.1 mmol/L (3.5-5.1) 05/20/25 05:14 Chloride 102 mmol/L (98-107) 05/20/25 05:14 Carbon Dioxide 25 mmol/L (22-29) 05/20/25 05:14 Anion Gap 15.1 (5-19) 05/20/25 05:14 BUN 15 mg/dL (8-23) 05/20/25 05:14 Creatinine 1.0 mg/dL (0.7-1.2) 05/20/25 05:14 GFR Calculation Not Reportable 05/20/25 05:14 Glucose 131 mg/dL (65-115) H 05/20/25 05:14 POC Glucose 156 mg/dL (70-110) H 05/19/25 06:02 Calculated Osmolality 289 mOsm/kg (285-295) 05/20/25 05:14 Calcium 8.9 mg/dL (8.5-10.5) 05/20/25 05:14 Total Bilirubin 0.2 mg/dL (0.15-1.2) 05/18/25 06:40 AST 14 U/L (0-40) 05/18/25 06:40 ALT 8 U/L (0-41) 05/18/25 06:40 Alkaline Phosphatase 72 U/L (40-130) 05/18/25 06:40 Troponin T Baseline 41 ng/L (0-15) H 05/18/25 06:40 Troponin T 120 Minute 46.45 ng/L (0-15) H 05/18/25 08:30 Delta Troponin T 5.45 ABS# (0-10) 05/18/25 08:30 Troponin T Hi Sens 6Hr 46.95 ng/L (0-15) H 05/18/25 13:01 Troponin T Hi Sens 6Hr Delta 5.95 ng/L (0-12) 05/18/25 13:01 Total Protein 6.3 g/dL (6.6-8.7) L 05/18/25 06:40 Albumin 3.5 g/dL (3.5-5.2) 05/18/25 06:40 Globulin 2.8 g/dL (1.3-4.6) 05/18/25 06:40 Vitals Last Vital Signs Temp 97.4 F L 05/20/25 08:00 Pulse 77 05/20/25 08:00 Resp 20 H 05/20/25 08:00 BP 146/66 05/20/25 08:00 Pulse Ox 93 05/20/25 08:00 O2 Del Method Room Air 05/20/25 08:00 Discharge Plan Discharge Patient Disposition: Home Condition: Stable Prescriptions: New clopidogrel 75 mg Tablet 75 mg PO DAILY Qty: 30 0RF aspirin 81 mg Tablet,Delayed Release (Dr/Ec) 81 mg PO DAILY Qty: 30 0RF Continued loratadine [Claritin] 10 mg tablet 10 mg PO DAILY PRN (Reason: allergies) diclofenac sodium [Arthritis Pain (diclofenac)] 1 % gel 4 g topical QID Qty: 100 2RF Rx Instructions: apply to single knee, ankle, foot; for foot includes sole/toes/top of foot acetaminophen 500 mg capsule 1,000 mg PO .R68rsatt prednisone 20 mg tablet See Rx Instructions PO .COMPLEX PRN (Reason: joint pain flare) Qty: 30 1RF Rx Instructions: take 1-2 daily for 5 days PRN joint pain flare PO PRN; metoprolol tartrate 50 mg tablet See Rx Instructions .ROUTE .COMPLEX Qty: 135 3RF Dose Instruction: TAKE 1 TABLET BY MOUTH IN THE MORNING AND 1/2 (ONE-HALF) IN THE EVENING Rx Instructions: TAKE 1 TABLET BY MOUTH IN THE MORNING AND 1/2 (ONE-HALF) IN THE EVENING potassium chloride 10 mEq capsule, extended release See Rx Instructions .ROUTE .COMPLEX Qty: 180 3RF Dose Instruction: TAKE 1 TO 2 CAPSULES BY MOUTH ONCE DAILY NEEDED FOR ELECTROLYTE REPLENISHMENT, TAKE WITH FUROSEMIDE Rx Instructions: TAKE 1 TO 2 CAPSULES BY MOUTH ONCE DAILY NEEDED FOR ELECTROLYTE REPLENISHMENT, TAKE WITH FUROSEMIDE amlodipine 10 mg tablet 10 mg PO DAILY Qty: 90 3RF apalutamide 60 mg tablet 240 mg PO DAILY Qty: 120 2RF losartan 50 mg tablet 50 mg PO BEDTIME furosemide 20 mg tablet 40 mg PO DAILY Qty: 30 0RF Rx Instructions: Take 1 - 2 tabs by mouth daily as needed for shortness of breath or swelling. Held metformin 500 mg tablet extended release 24 hr 500 mg PO DAILY Hold Instructions: hold for 48 hours No Action allopurinol 200 mg tablet 200 mg PO DAILY Qty: 180 1RF omeprazole 20 mg capsule,delayed release(DR/EC) 20 mg PO BID Qty: 180 1RF prednisone 5 mg tablet 5 mg PO DAILY Qty: 90 1RF Discharge Orders: Discharge Order (Routine); Ordered 05/20/25 Ordered By: Cynthia Valdez Referrals: Norbert Gonzalez M.D [Physician, Cardiology] - 1 month Referral Note: please call cardiology and sceduale an appointment with aldair butterfieldnurse practitioner for 7-10 days.[phone] Aldair Butterfield FNP [Nurse Practitioner, Cardiology] - 7-10 days Yaakov Rolle MD [Primary Care Provider, [facility]] - 05/29/25 8:40 am Discharge Diet: Cardiac and Diabetic Discharge Activity: Limit activity as instructed Patient Instructions: Aspirin (By mouth), Clopidogrel (By mouth) (Plavix), Coronary Artery Disease (DC), Coronary Angioplasty (DC), Opioid Safety, Post Angiogram Home Care Instructions, Post Heart Attack Stoplight Discharge Attestations Time Spent in Discharge Care*: less than 30 min Quality Metrics Clinical Quality Measures [ No reported AMI, CVA or VTE this stay] Coding Level of Care Code Acute Code for [facility] Fwd Diagnoses Unstable angina I20.0
[2025-05-20 12:00] VITALS: BP 108/63; PULSE 66; RESP 20; TEMP 36.3; O2SAT 95
[2025-05-20 12:06] VITALS: BP 146/66; PULSE 78; RESP 20; O2SAT 98
--- NOTE | 2025-05-20 12:53 | PC.NURSE ---
Discharge instructions given and explained.pt and spouse verb understanding of instructions.discharged via w/c to exit at thsi time.spouse to drive pt home
== END 2025-05-20 12:54 | disposition home or self-care (01) | DRG 322 ==
LOC: ER 10:31 → ER IP 12:33 → CSU 13:42
PROVIDERS: Internal Medicine Cardiovascular Disease; Admitting Provider Internal Medicine; Emergency Provider Family Medicine; PCP Family Medicine; Visit Provider Internal Medicine
PROC: 027135Z Dilation of Coronary Artery, Two Arteries with Two Drug-eluting Intraluminal Devices, Percutaneous Approach (ICD-10-PCS; principal; 2025-05-19 10:30)
PROC: 027135Z Dilation of Coronary Artery, Two Arteries with Two Drug-eluting Intraluminal Devices, Percutaneous Approach (ICD-10-PCS; 2025-05-19 10:30)
DX: I25.110 Atherosclerotic heart disease of native coronary artery with unstable angina pectoris (principal); I10 Essential (primary) hypertension; J44.9 Chronic obstructive pulmonary disease, unspecified; E78.1 Pure hyperglyceridemia; M06.00 Rheumatoid arthritis without rheumatoid factor, unspecified site; N40.1 Benign prostatic hyperplasia with lower urinary tract symptoms; N41.1 Chronic prostatitis; Z96.651 Presence of right artificial knee joint; E11.9 Type 2 diabetes mellitus without complications; R91.8 Other nonspecific abnormal finding of lung field; I44.0 Atrioventricular block, first degree; Z79.82 Long term (current) use of aspirin; Z79.02 Long term (current) use of antithrombotics/antiplatelets; Z79.899 Other long term (current) drug therapy; Z85.72 Personal history of non-Hodgkin lymphomas; Z85.828 Personal history of other malignant neoplasm of skin; Z85.46 Personal history of malignant neoplasm of prostate
CPT/HCPCS: 36415; 36416; 71045; 80048; 80053; 82962; 84484; 85025; 85347; 85378; 85730; 93005; 93306; 93454; 96365; 96366; 96372; 96374; 96375; 99152; 99153; 99285; C1725; C1769; C1874; C1887; C1894; C9600; C9601; J1200; J1644; J1650; J2250; J2270; J2405; J3010; J3490; J7030; J7512; J9999; Q9967

== ENCOUNTER → 2025-05-22 10:41 | Outpatient (BNVA) | payer MEDICARE, SELFPAY | PROVIDERS: PCP Family Medicine; Visit Provider Internal Medicine Rheumatology | DX: M06.041 Rheumatoid arthritis without rheumatoid factor, right hand (principal); M06.042 Rheumatoid arthritis without rheumatoid factor, left hand; Z79.899 Other long term (current) drug therapy; Z71.89 Other specified counseling; R97.21 Rising PSA following treatment for malignant neoplasm of prostate | CPT/HCPCS: 99214 ==

== ENCOUNTER → 2025-06-05 15:24 | Outpatient (BNVA) | payer MEDICARE, SELFPAY | PROVIDERS: PCP Family Medicine; Visit Provider Nurse Practitioner Family | DX: Z09 Encounter for follow-up examination after completed treatment for conditions other than malignant neoplasm (principal); I25.10 Atherosclerotic heart disease of native coronary artery without angina pectoris; D64.9 Anemia, unspecified; Z79.02 Long term (current) use of antithrombotics/antiplatelets; Z79.82 Long term (current) use of aspirin; Z95.5 Presence of coronary angioplasty implant and graft | CPT/HCPCS: 99213 ==

== ENCOUNTER 2025-06-08 13:15 | Oncology outpatient (recurring) (ONCR) | payer MEDICARE, SELFPAY ==
--- NOTE | 2025-05-30 12:00 | CT_ITS ---
WS: [id number] CT chest w con* [id number] HISTORY: malignant lymphoma TECHNIQUE: Axial imaging performed through the thorax. Coronal and sagittal reformats are submitted. All CT scans at [facility] use at least one of these dose optimization techniques: automated exposure control; mA and/or kV adjustment per patient size (includes targeted exams where dose is matched to clinical indication); or iterative reconstruction. CONTRAST: Omnipaque 350; 100 mL IV. DLP: 576.43 mGy.cm COMPARISON: 02/28/2025, 10/30/2023 Lungs and central airway: Numerous bilateral pulmonary nodules are reidentified. These nodules are calcified. There is some soft tissue component remaining with some of the calcifications. No new nodule or solid mass. No pneumonia. Linear atelectasis LEFT upper lobe. Pleura: Normal. No pleural effusion. Heart and pericardium: Normal size heart with no pericardial effusion. Mediastinum and roberth: Mediastinal and hilar lymph nodes are stable. Some of these contain calcifications. No pathologically enlarged lymph nodes. Vessels: Minimal atherosclerosis aorta. Pulmonary arteries equal size to the aorta. Chest wall and lower neck: No soft tissue masses. Upper abdomen: Small hiatal hernia. No adrenal mass. Stable upper poles of each kidney demonstrated mild cortical thinning. Osseous structures: Osteopenia. Increase in thoracic kyphosis. CT/CT chest w con* [id number] IMPRESSION: 1. Numerous stable bilateral pulmonary nodules consistent with granulomas. 2. No new mass or nodule. 3. No mediastinal or hilar adenopathy.
[2025-05-30] MEDS: iohexol 350 mg/mL 500 mL Btl (per mL) IV (14:23)
[2025-06-08 13:13] LABS: Hematocrit 36.2 % (37-53); Hemoglobin 11.60 g/dL (11.27-16.99); Mean Corpuscular HGB Conc 32.0 g/dL (30-55); Mean Corpuscular Hemoglobin 31.5 pg (27-33); Mean Corpuscular Volume 98.4 fl (82-101); Nucleated Red Blood Cells % 0 %; Platelet Count 185 10^3/cmm (157-399); Red Blood Count 3.68 10^6/uL (3.85-5.65); White Blood Count 9.33 10^3/uL (3.29-11.43)
[2025-06-08 13:44] LABS: Alanine Aminotransferase 8 U/L (0-41); Albumin Level 3.8 g/dL (3.5-5.2); Alkaline Phosphatase 57 U/L (40-130); Anion Gap 18.6 (5-19); Aspartate Amino Transferase 12 U/L (0-40); Blood Urea Nitrogen 22 mg/dL (8-23); Calcium 9.3 mg/dL (8.5-10.5); Carbon Dioxide 20 mmol/L (22-29); Chloride 103 mmol/L (98-107); Creatinine Clr Calc Pharmacy 68.7007; Globulin 3.0 g/dL (1.3-4.6); Glucose 136 mg/dL (65-115); Osmolality Calculated 289 mOsm/kg (285-295); Potassium 4.6 mmol/L (3.5-5.1); Sodium 137 mmol/L (136-145); Total Protein 6.8 g/dL (6.6-8.7)
[2025-06-08 13:46] LABS: Prostate Specific Antigen < 0.014 ng/mL (0-4)
== END 2025-06-29 23:59 | disposition home or self-care (01) ==
PROVIDERS: PCP Family Medicine; Visit Provider Internal Medicine
DX: C61 Malignant neoplasm of prostate; C79.51 Secondary malignant neoplasm of bone; Z85.72 Personal history of non-Hodgkin lymphomas; R91.8 Other nonspecific abnormal finding of lung field; M06.042 Rheumatoid arthritis without rheumatoid factor, left hand; M06.041 Rheumatoid arthritis without rheumatoid factor, right hand; Z98.890 Other specified postprocedural states; Z79.899 Other long term (current) drug therapy; Z53.9 Procedure and treatment not carried out, unspecified reason
CPT/HCPCS: 36415; 71260; 80053; 84153; 84403; 85025; 99213

== ENCOUNTER 2025-06-22 10:00 | Outpatient (CLI) | payer MEDICARE, SELFPAY ==
[2025-06-22 11:36] LABS: Cholesterol 222 mg/dL (0-200); HDL Cholesterol 36 mg/dL (60-100); Triglycerides 235 mg/dL (0-150)
== END 2025-06-22 10:01 | disposition home or self-care (01) ==
LOC: LAB 10:02
PROVIDERS: PCP Family Medicine; Visit Provider Nurse Practitioner Family
DX: Z79.899 Other long term (current) drug therapy (principal)
CPT/HCPCS: 80061

== ENCOUNTER → 2025-07-06 10:45 | Outpatient (BNVA) | payer MEDICARE, SELFPAY | PROVIDERS: PCP Family Medicine; Visit Provider Internal Medicine Cardiovascular Disease | DX: I25.10 Atherosclerotic heart disease of native coronary artery without angina pectoris (principal); I10 Essential (primary) hypertension; E78.1 Pure hyperglyceridemia; R00.1 Bradycardia, unspecified; Z79.02 Long term (current) use of antithrombotics/antiplatelets; Z79.82 Long term (current) use of aspirin | CPT/HCPCS: 99214 ==

== ENCOUNTER 2025-07-26 06:34 | Outpatient (CLI) | payer MEDICARE, SELFPAY ==
[2025-07-26 06:43] VITALS: BMI 41.5
--- NOTE | 2025-07-26 06:46 | ECG_ITS ---
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 Interpretive Statements Procedure: A total of 0.4 mg of Lexiscan was infused over 20 seconds. The stress phase was continued for a total of 5 minutes. Sestamibi was injected 20 seconds after the Lexiscan infusion. Vital signs and ECG findings: Baseline EKG???normal sinus rhythm, heart rate 65 bpm, no ST-T wave abnormality Stress EKG???no ST-T wave changes At baseline, blood pressure 151/80 with a heart rate of 65 bpm At peak stress, blood pressure 151/80 with heart rate 8082 bpm In recovery, blood pressure 156/71 with heart rate of 79 bpm Conclusion: 1. Normal EKG response to Lexiscan infusion 2. No Lexiscan induced chest pain or cardiac arrhythmia. 3. Normal blood pressure and heart rate response. 4. Nuclear myocardial perfusion scan pending; see separate report. Electronically Signed On 07-27-2025 09:02:18 CDT by Jose Holt M.D. [email or web address]
--- NOTE | 2025-07-26 06:46 | NMCV_ITS ---
NM koko perf SPECT r/s* [id number] ShawXavi Age: 75 Gender: M : 1950 Exam Date: 07/26/2025 07:34 Ordering Phys: Kala Kaur NP Technologist: RAIMUNDO Sanchez Exam Location: [facility] Indications: cp STRESS TEST 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 Supine position only as patient was unable to lay prone. SPECT RESULTS Technical Quality: Good Raw Data Analysis: Normal Image Corrections: No attenuation or motion correction applied Summed Stress Score: 1 Summed Rest Score: 0 Summed Difference Score: 1 PERFUSION FINDINGS SPECT images demonstrate homogeneous tracer distribution throughout the myocardium. FUNCTIONAL RESULTS (calculated via Gated SPECT) Stress Image LV EF (%): 82 Stress EDV (mL):82 TID: 1.05 Stress ESV (mL):15 FUNCTIONAL FINDINGS: There is normal left ventricular systolic function. IMPRESSIONS Myocardial perfusion imaging is normal. Jose Holt MD, FACC (Electronically Signed) Final Date: 26 July 2025 13:07 S
[2025-07-26 08:22] VITALS: BP 136/84; PULSE 66
== END 2025-07-26 06:35 | disposition home or self-care (01) ==
PROVIDERS: PCP Family Medicine; Visit Provider Nurse Practitioner Family
DX: R07.9 Chest pain, unspecified (principal)
CPT/HCPCS: 36415; 78452; 93017; 96374; A9500; J2785

== ENCOUNTER 2025-09-07 13:00 | Oncology outpatient (recurring) (ONCR) | payer MEDICARE, SELFPAY ==
--- NOTE | 2025-09-05 13:45 | XR_ITS ---
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 FINDINGS: The L1-L4 bone mineral density measures 1.140 g/cm2. This corresponds to a T score score of -0.7 and Z score of -0.8. Left femoral neck bone mineral density measures 0.791 g/cm2. This corresponds to a T score of -2.2 and Z score of -1.8. Right femoral neck bone mineral density measures 0.836 g/cm2. This corresponds to a T score -1.8of and Z score of -1.4. Mean femoral neck bone mineral density measures 0.814 g/cm2. This corresponds to a T score of -2.0 and Z score of -1.6. XR/XR DEXA axial skeleton* [id number] IMPRESSION: Normal bone mineralization lumbar spine. Osteopenia femoral necks. Patient's FRAX calculated 10 year probability for major osteoporotic fracture i s 23.6% and osteoporotic hip fracture is 11.0%.
[2025-09-07 10:56] LABS: Hematocrit 34.0 % (37-53); Hemoglobin 10.90 g/dL (11.27-16.99); Mean Corpuscular HGB Conc 32.1 g/dL (30-55); Mean Corpuscular Hemoglobin 31.0 pg (27-33); Mean Corpuscular Volume 96.6 fl (82-101); Nucleated Red Blood Cells % 0 %; Platelet Count 168 10^3/cmm (157-399); Red Blood Count 3.52 10^6/uL (3.85-5.65); White Blood Count 4.67 10^3/uL (3.29-11.43)
[2025-09-07 11:40] LABS: Alanine Aminotransferase 7 U/L (0-41); Albumin Level 3.7 g/dL (3.5-5.2); Alkaline Phosphatase 53 U/L (40-130); Anion Gap 16.3 (5-19); Aspartate Amino Transferase 12 U/L (0-40); Blood Urea Nitrogen 16 mg/dL (8-23); Calcium 9.1 mg/dL (8.5-10.5); Carbon Dioxide 22 mmol/L (22-29); Chloride 107 mmol/L (98-107); Cholesterol 130 mg/dL (0-200); Ferritin 49 ng/mL (30-400); Globulin 2.9 g/dL (1.3-4.6); Glucose 137 mg/dL (65-115); HDL Cholesterol 41 mg/dL (60-100); Iron 64 ug/dL (59-158); Osmolality Calculated 295 mOsm/kg (285-295); Potassium 4.3 mmol/L (3.5-5.1); Sodium 141 mmol/L (136-145); Thyroid Stimulating Hormone 2.83 uIU/mL (0.27-4.20); Total Iron Binding Capacity 254 mcg/dl; Total Protein 6.6 g/dL (6.6-8.7); Triglycerides 187 mg/dL (0-150); Unsaturated Iron Binding 190 ug/dL (112-347); Uric Acid 5.4 mg/dL (3.4-7.0); Vitamin B12 257 pg/mL (232-1245)
[2025-09-07 11:48] LABS: Prostate Specific Antigen < 0.014 ng/mL (0-4)
[2025-09-07 12:13] LABS: Free T4 Free Thyroxine 1.19 ng/dL (0.82-1.77)
== END 2025-09-29 23:59 | disposition home or self-care (01) ==
PROVIDERS: Nurse Practitioner; PCP Family Medicine; Visit Provider Internal Medicine
DX: Z53.9 Procedure and treatment not carried out, unspecified reason; C61 Malignant neoplasm of prostate; C79.51 Secondary malignant neoplasm of bone; M85.80 Other specified disorders of bone density and structure, unspecified site; Z85.72 Personal history of non-Hodgkin lymphomas; R91.8 Other nonspecific abnormal finding of lung field; Z79.899 Other long term (current) drug therapy; E78.5 Hyperlipidemia, unspecified; M1A.9XX0 Chronic gout, unspecified, without tophus (tophi)
CPT/HCPCS: 36415; 77080; 80053; 80061; 82306; 82607; 82728; 82746; 83540; 83550; 83615; 84153; 84403; 84439; 84443; 84550; 85025; 99215

== ENCOUNTER → 2025-09-27 13:25 | Outpatient (BNVA) | payer MEDICARE, SELFPAY | PROVIDERS: PCP Family Medicine; Visit Provider Nurse Practitioner Family | DX: L91.8 Other hypertrophic disorders of the skin (principal); D22.4 Melanocytic nevi of scalp and neck; D22.5 Melanocytic nevi of trunk; Z08 Encounter for follow-up examination after completed treatment for malignant neoplasm; Z85.828 Personal history of other malignant neoplasm of skin; L82.0 Inflamed seborrheic keratosis; L53.8 Other specified erythematous conditions; R20.8 Other disturbances of skin sensation; L57.0 Actinic keratosis | CPT/HCPCS: 17000; 17110; 99203; 99213 ==

== ENCOUNTER → 2025-11-14 13:44 | Outpatient (BNVA) | payer MEDICARE, SELFPAY | PROVIDERS: PCP Family Medicine; Visit Provider Internal Medicine Rheumatology | DX: M06.041 Rheumatoid arthritis without rheumatoid factor, right hand (principal); M06.042 Rheumatoid arthritis without rheumatoid factor, left hand; Z79.899 Other long term (current) drug therapy; Z71.85 Encounter for immunization safety counseling; R97.21 Rising PSA following treatment for malignant neoplasm of prostate; Z85.71 Personal history of Hodgkin lymphoma | CPT/HCPCS: 99214 ==